=== PATIENT | male | born 1970 | race Caucasian/White ===

== ENCOUNTER 2017-09-04 17:23 | Inpatient (IN) | payer OTHER, SELFPAY ==
[2017-09-04] VITALS (7 sets, daily range): BP systolic 129–148; BP diastolic 89–103; PULSE 10–105; RESP 16–24; TEMP 36.1–36.4; O2SAT 94–100; BMI 27.7; BMI 28.4
[2017-09-04 17:57] LABS: Absolute Lymphocyte Count 1.27 X10^3/ul (0.83-4.51); Absolute Neutrophil Count 5.3 X10^3/uL (2.0-7.7); Basophil# 0.01 X10^3/uL; Basophil% 0.1 % (0-1); Eosinophil# 0.08 X10^3/uL; Hematocrit 52.4 % (40-54); Lymphocyte # 1.27 X10^3/ul (4.0); Lymphocyte % 15.4 % (19-41); Mean Corp Hgb Conc 36.1 g/gl (32-36); Mean Corpuscular Hgb 31.2 pg (27.0-32.0); Mean Corpuscular Volume 86.5 fL (80-94); Monocyte# 1.61 X10^3/uL; Monocyte% 19.5 % (0-10); Neutrophil # 5.29 X10^3/uL (2.7-7.7); Neutrophil % 63.9 % (47-70); Platelet Count 236 K/mm3 (150-450); RBC Distribution Width CV 13.4 % (11.6-14.6); RBC Distribution Width SD 41.9 fl (35.1-43.9); Red Blood Count 6.06 M/mm3 (4.6-6.2); White Blood Count 8.3 K/mm3 (4.4-11.0)
[2017-09-04 18:00] LABS: Differential Indicated SCAN CRITERIA MET; Hemoglobin 18.9 g/dl (13.0-16.5); POSITIVE COUNT NO; POSITIVE DIFFERENTIAL YES; POSITIVE MORPHOLOGY NO
--- NOTE | 2017-09-04 18:00 | CT_ITS ---
STUDY: CT ABDOMEN AND PELVIS WITH CONTRAST REASON FOR EXAM: Male, 47 years old. ABD PAIN AND DIARRHEA X 3 DAYS/NAUSEA. Hernia repair as child. RADIATION DOSAGE (If Supplied By Facility): CTDIvol = ( 12.23 ) mGy, DLP = ( 955.61 ) mGycm TECHNIQUE: Transaxial images were obtained from the dome of the diaphragm to the symphysis pubis with oral contrast. 75ml ml of Isovue 300 contrast was administered. Sagittal and coronal images were reconstructed. Individualized dose optimization techniques were used for this CT. COMPARISON: None. FINDINGS: The visualized lung bases are unremarkable. The visualized portions of the heart are within normal limits. Normal liver. Normal gallbladder and extrahepatic biliary system. Normal spleen. Normal pancreas. Normal bilateral adrenal glands. Normal right kidney. Normal left kidney. Normal visualized stomach. There is a paralytic ileus of the small intestine with mild gaseous distention. Normal colon. The appendix is visualized and appears normal. There is diffuse atherosclerotic calcification of the abdominal aorta, without a demonstrated aneurysm. Normal inferior vena cava. Normal retroperitoneum. Normal urinary bladder. Normal visualized prostate gland. Trace free fluid in the pelvis. The source is not identified. Normal abdominal wall. Normal osseous structures. CT/Abdomen/Pelvis WITH Contrast IMPRESSION: There is a paralytic ileus of the small intestine with mild gaseous distention. Trace free fluid in the pelvis. The source is not identified. Electronically Signed: Jorgito Spencer MD at 20:28 EDT , Service support ,
--- NOTE | 2017-09-04 18:03 | ED.VISSUMM ---
- ER Visit Summary Date of Service: 09/04/17 Chief Complaint: Abdominal pain History of Present Illness: The patient is a 47 M who states that on Friday he woke with abdominal pain and diarrhea. He attempted to go to work but had to cut his day short. He has had vomiting. Diarrhea and the discomfort has pretty much been consistent through Friday and into today. The vomiting subsided but returned for the past couple hours. No fevers. He notes that he is only been drinking liquids since Friday. No blood in the diarrhea. No flank pain. He has a history of GERD and saw Dr. Nino for that. He states that he has never had a colonoscopy. He notes when he would describe his like an irritable bowel-like pattern with diarrhea occasionally. He has never been formally diagnosed. He has no personal history of colitis. He notes the only abdominal surgery was a inguinal hernia repair when he was [age] years old. Patient has had no recent antibiotics. Describes diarrhea as brown and watery Physical Examination: Afebrile vital signs are stable Gen: Well-nourished well-developed Head: Normocephalic atraumatic Eyes: Perrl EOMI ENT: TMs clear no rhinorrhea moist mucous membranes Neck: Supple no lymphadenopathy no JVD nontender CVS: Regular rate rhythm no murmurs normal S1-S2 Respiratory: No distress clear to auscultation bilaterally chest nontender Abdomen: Soft mild tenderness to palpation without guarding or rebound nondistended normal bowel sounds no masses Back: Nontender Extremity: Nontender no edema Skin: Normal color no rash Neuro: alert orientated ?3 CN II-XII intact normal strength sensation reflexes gait cerebellar Psych: Normal affect normal mood Test Results: White count is normal at 18.3. Hemoglobin 18.9 (I suspect this is due to some degree of hemoconcentration) BUN 28 with creatinine 1.48. Total bilirubin 1.8 direct bilirubin 0.35 ALT is 65 AST of 30. Lactic acid 1.9. CT abdomen pelvis with oral and IV contrast demonstrated what is probably an ileus versus obstruction. There is air-fluid levels. Most of the contrast did not move past the stomach. Emergency Department Course and Treatment: The patient received morphine Zofran and fluids. He also received a dose of Reglan. An NG tube was placed after lidocaine aerosol. I spoke with Dr. Roy who reviewed the films I also spoke with Dr. Dumont. Plan is admission into the hospital Impression: 1. Abdominal pain 2. Ileus 3. Dehydration 4. Diarrhea This note was generated with [employer] dictation software. It may contain incorrect words, spelling, and punctuation that were not noted in review of the chart prior to signing ED Disposition - Plan for ED Patient: Chief Complaint: Abd Pain Referrals: Lenny Riddle MD [Primary Care Provider] -
[2017-09-04 18:05] LABS: Anion Gap 10 (5-15); BUN 28 mg/dL (7-18); BUN/Creat Ratio 18.9 RATIO (10-20); Calcium,Total 9.5 mg/dL (8.5-10.1); Chloride 101 mmol/L (98-107); Creatinine, Serum 1.48 mg/dL (0.70-1.30); EST Glomerular Filtration Rate 54 mL/min (>60); Est Glom Filt Rate - Afr Amer 65 mL/min (>60); Estimated Creatinine Clearance 65.01 ml/min; Glucose 129 mg/dL (74-106); Potassium 3.5 mmol/L (3.5-5.1); Sodium Level 134 mmol/L (136-145)
[2017-09-04] MEDS: 0.9% Normal Saline 1,000 ML 1000 ML IV (18:07)
[2017-09-04] MEDS: Morphine 4 MG/ML Syringe IV ×2 (18:07→20:34)
[2017-09-04] MEDS: Ondansetron 4 MG/2 ML Vial IV (18:07)
[2017-09-04 18:22] LABS: Red Blood Cells-Urine 0 SEEN /hpf (0-5)
[2017-09-04 18:23] LABS: AST(SGOT) 30 U/L (15-37); Alanine Aminotransfer ALT/SGPT 65 U/L (16-61); Albumin, Serum 4.7 g/dL (3.2-5.0); Alkaline Phosphatase 69 U/L (45-117); Bilirubin, Direct 0.35 mg/dL (0.00-0.30); Globulin 4.2 g/dL (2.2-4.2); Lipase 83 U/L (73-393); Protein, Total 8.9 g/dL (6.4-8.2)
[2017-09-04 18:33] LABS: Color, Urine Yellow (Yellow); Glucose, Dipstick Normal (Normal); Ketone-Dipstick 50 mg/dl (Negative); Leukocyte Esterase-Dipstick 25 /ul (Negative); Nitrite-Dipstick Negative (Negative); Occult Blood-Urine 150 /ul (Negative); Protein-Dipstick 100 mg/dl (Negative); Urine Clarity Clear (Clear); Urine Urobilinogen 4 mg/dl (Normal)
[2017-09-04 18:44] LABS: Platelet Estimate ADEQUATE (ADEQ)
[2017-09-04 18:45] LABS: Anisocytosis RARE
[2017-09-04 18:59] LABS: Lactic Acid 1.9 mmol/L (0.4-2.0)
[2017-09-04 19:15] LABS: Urine Bilirubin Dipstick 3 mg/dL (Negative)
[2017-09-04 19:16] LABS: White Blood Cells 0-5 SEEN /hpf (0-5)
[2017-09-04 19:17] LABS: Bacteria 2+ /hpf (None Seen); Hyaline Cast 0-5 SEEN /lpf (0-5); Mucous, Urine 2+ /hpf (<or=2+); Squamous Epithelial Cells - UA 0-5 SEEN /hpf (0-5)
[2017-09-04] MEDS: Metoclopramide 10 MG/2 ML Vial 5 MG IV (19:43)
[2017-09-04] MEDS: 0.9% Normal Saline 1,000 ML 250 ML IV (19:51)
[2017-09-04] MEDS: Lidocaine 4% 5 ML Ampul 2 ML INHALATION (21:33)
--- NOTE | 2017-09-04 21:37 | PCM.HP.STD ---
Problem List (1) Small bowel ileus Status: Acute (2) GERD (gastroesophageal reflux disease) Status: Chronic History of Present Illness Date of Admission: 09/04/17 Chief Complaint: Abdominal pain, nausea vomiting and diarrhea since Friday The patient is a 47 year old M with history of GERD, follows Dr. Jimenez and had EGD and gastric polypectomy done this year came to ER with 2 day history of nausea, vomiting and diarrhea and abdominal pain. Patient started not feeling well on Friday and had 3 loose bowel movement for which he took Imodium his diarrhea controlled. After that he had nausea and vomiting about 2-3 times and abdominal pain is started in the Friday evening. Abdominal pain was generalized started in mid abdomen, colicky nature, comes in waves with intensity 10/10 lasting for about 15-20 minutes. Patient has vomiting and diarrhea started today and abdominal pain got worse and so came to ER. In ED, triage vitals shows mild tachycardia and tachypnea otherwise blood pressure normal. In the ED, CT abdomen and pelvis was done. CT abdomen images reviewed and I agree with official report of gaseous distention of the small bowel suggestive of paralytic ileus. Normal colon. The lab work shows hemoglobin 18.9, mainly from hemoconcentration. K3.5. BUN 28 creatinine 1.48. LFT within normal limit except total bilirubin 1.8. Past Medical History Past Medical History (Chronic Problems): Chronic Problems GERD (gastroesophageal reflux disease) (Chronic) Allergies No Known Allergies Allergy (Verified 09/04/17 17:25) Home Medications: Ambulatory Orders Medication Instructions Recorded Omeprazole [Prilosec] 10 mg PO BID 09/04/17 Smoking Status: Never smoker - *Family History Paternal History Items: No pertinent history Review of Systems Constitutional: Denies: Chills, Fever, Weight Change HEENT: Denies: Head Aches, Sinus Congestion, Sinus Drainage Cardiovascular: Denies: Chest Pain, Palpitations Respiratory: Denies: Cough, Shortness of breath at rest, Sputum production Gastrointestinal: Reports: Abdominal Pain, Diarrhea, Dyspepsia, Nausea. Denies: Hematemesis, Hematochezia, Melena, Vomiting Genitourinary: Denies: Dysuria Musculoskeletal: Denies: Joint Pain, Joint Tenderness Skin: Denies: Rash, Wounds Neurological: Denies: Numbness, Tingling, Focal weakness Psychiatric: Denies: Anxiety, Depression, Homicidal Ideations, Suicidal Ideations Hematologic/ Lymphatic: Denies: Easy Bruising, Easy Bleeding VTE Information - Inpt Only VTE Present on Admission: No VTE Mechan Device Prophylaxis: SCD's VTE Pharm Prophylaxis ordered?: Yes Patient Problems: Active and Suspected Problems Small bowel ileus (Acute) - Physical Exam General: Alert, Oriented x3, Cooperative HEENT: Atraumatic, PERRLA, EOMI, Normocephalic Neck: Supple, No JVD, Negative Carotid Bruits Lungs: Clear to auscultation, Normal air movement Cardiovascular: Regular rate, Normal S1, Normal S2, No murmurs Abdomen: Bowel Sounds Present, Soft, Hypoactive Bowel Sounds, Tender - Mild diffuse tenderness present. Rebound tenderness. Extremities: No edema, Capillary Refill Less than 3 Seconds Skin: No rashes, No breakdown Musculoskeletal: No Tenderness to Palpation of Joints or Extremities Neurological: Cranial nerves II-XII grossly intact Psych/Mental Status: Normal Affect, Appropriate Vital Signs Temp Pulse Resp BP Pulse Ox 97.0 F L 91 16 148/89 H 97 09/04/17 17:23 09/04/17 21:20 09/04/17 21:20 09/04/17 21:20 09/04/17 21:20 Oxygen Delivery Method Room Air Weight: 198 lb 13.711 oz Body Mass Index (BMI) 27.7 Laboratory Tests Past 24 Hrs 09/04/17 09/04/17 09/04/17 17:35 17:35 17:35 WBC 8.3 RBC 6.06 Hgb 18.9 H* Hct 52.4 MCV 86.5 MCH 31.2 MCHC 36.1 H RDW 13.4 RDW Differential 41.9 Plt Count 236 MPV 10.0 Immature Gran % (Auto) 0.100 Neut % (Auto) 63.9 Lymph % (Auto) 15.4 L Loving % (Auto) 19.5 H Eos % (Auto) 1.0 Baso % (Auto) 0.1 Absolute Neuts (auto) 5.3 Absolute Lymphs (auto) 1.27 Total Counted Not Reportable Differential Comment SEE COMMENT Diff Path Review May foll Platelet Estimate ADEQUATE Anisocytosis RARE Sodium 134 L Potassium 3.5 Chloride 101 Carbon Dioxide 23.0 Anion Gap 10 BUN 28 H Creatinine 1.48 H Estim Creat Clear Calc 65.01 Est GFR (MDRD) Af Amer 65 Est GFR (MDRD) Non-Af 54 L BUN/Creatinine Ratio 18.9 Glucose 129 H Lactic Acid Calcium 9.5 Total Bilirubin 1.80 H Direct Bilirubin 0.35 H AST 30 ALT 65 H Alkaline Phosphatase 69 Total Protein 8.9 H Albumin 4.7 Globulin 4.2 Lipase 83 Urine Color Urine Clarity Urine pH Ur Specific Baldwin Urine Protein Urine Glucose (UA) Urine Ketones Urine Occult Blood Urine Nitrite Urine Bilirubin Urine Urobilinogen Ur Leukocyte Esterase Urine RBC Urine WBC Ur Squamous Epith Cells Urine Bacteria Hyaline Casts Urine Mucus 09/04/17 09/04/17 18:11 18:16 WBC RBC Hgb Hct MCV MCH MCHC RDW RDW Differential Plt Count MPV Immature Gran % (Auto) Neut % (Auto) Lymph % (Auto) Loving % (Auto) Eos % (Auto) Baso % (Auto) Absolute Neuts (auto) Absolute Lymphs (auto) Total Counted Differential Comment Diff Path Review Platelet Estimate Anisocytosis Sodium Potassium Chloride Carbon Dioxide Anion Gap BUN Creatinine Estim Creat Clear Calc Est GFR (MDRD) Af Amer Est GFR (MDRD) Non-Af BUN/Creatinine Ratio Glucose Lactic Acid 1.9 Calcium Total Bilirubin Direct Bilirubin AST ALT Alkaline Phosphatase Total Protein Albumin Globulin Lipase Urine Color Yellow Urine Clarity Clear Urine pH 5.0 Ur Specific Baldwin 1.020 Urine Protein 100 H Urine Glucose (UA) Normal Urine Ketones 50 H Urine Occult Blood 150 H Urine Nitrite Negative Urine Bilirubin 3 H Urine Urobilinogen 4 H Ur Leukocyte Esterase 25 H Urine RBC 0 SEEN Urine WBC 0-5 SEEN Ur Squamous Epith Cells 0-5 SEEN Urine Bacteria 2+ Hyaline Casts 0-5 SEEN Urine Mucus 2+ Assessment/Plan All Active Problems Small bowel ileus (Acute) The patient is a 47 year old M with history of GERD, follows Dr. Jimenez and had EGD and gastric polypectomy done this year came to ER with 2 day history of nausea, vomiting and diarrhea and abdominal pain. Patient started not feeling well on Friday and had 3 loose bowel movement for which he took Imodium his diarrhea controlled. After that he had nausea and vomiting about 2-3 times and abdominal pain is started in the Friday evening. Abdominal pain was generalized started in mid abdomen, colicky nature, comes in waves with intensity 10/10 lasting for about 15-20 minutes. Patient has vomiting and diarrhea started today and abdominal pain got worse and so came to ER. He denies fever, chills or lower urinary tract symptoms. In ED, triage vitals shows mild tachycardia and tachypnea otherwise blood pressure normal. In the ED, CT abdomen and pelvis was done. CT abdomen images reviewed and I agree with official report of gaseous distention of the small bowel suggestive of paralytic ileus. Normal colon. The lab work shows hemoglobin 18.9, mainly from hemoconcentration. K3.5. BUN 28 creatinine 1.48. LFT within normal limit except total bilirubin 1.8. 1. Acute small bowel ileus: [facility] NG tube insertion and suction, n.p.o., IV fluid, major intake and output. It is a physician discussed with Dr. Roy and consult placed. Stool for enteric bacteriology panel, occult blood and WBC ordered. As per the CT scan of his small bowel ileus and normal colon, no antibiotic intake, but patient is on chronic PPI, therefore C. difficile is ordered although seems less likely. 2. GERD: On IV Protonix. 3. DVT prophylaxis: Moderate risk: On Lovenox and bilateral SCDs This note was generated with [employer] dictation software. Every effort was made to ensure accuracy, however computerized neurophysiologist mistakes may persist. Laboratory Results 09/04/17 17:35: WBC 8.3, RBC 6.06, Hgb 18.9 H*, Hct 52.4, MCV 86.5, MCH 31.2, MCHC 36.1 H, RDW 13.4, RDW Differential 41.9, Plt Count 236, MPV 10.0, Immature Gran % (Auto) 0.100, Neut % (Auto) 63.9, Lymph % (Auto) 15.4 L, Loving % (Auto) 19.5 H, Eos % (Auto) 1.0, Baso % (Auto) 0.1, Absolute Neuts (auto) 5.3, Absolute Lymphs (auto) 1.27, Total Counted Not Reportable, Differential Comment SEE COMMENT, Diff Path Review May foll, Platelet Estimate ADEQUATE, Anisocytosis RARE 09/04/17 17:35: Sodium 134 L, Potassium 3.5, Chloride 101, Carbon Dioxide 23.0, Anion Gap 10, BUN 28 H, Creatinine 1.48 H, Estim Creat Clear Calc 65.01, Est GFR (MDRD) Af Amer 65, Est GFR (MDRD) Non-Af 54 L, BUN/Creatinine Ratio 18.9, Glucose 129 H, Calcium 9.5 09/04/17 17:35: Total Bilirubin 1.80 H, Direct Bilirubin 0.35 H, AST 30, ALT 65 H, Alkaline Phosphatase 69, Total Protein 8.9 H, Albumin 4.7, Globulin 4.2, Lipase 83 09/04/17 18:11: Urine Color Yellow, Urine Clarity Clear, Urine pH 5.0, Ur Specific Baldwin 1.020, Urine Protein 100 H, Urine Glucose (UA) Normal, Urine Ketones 50 H, Urine Occult Blood 150 H, Urine Nitrite Negative, Urine Bilirubin 3 H, Urine Urobilinogen 4 H, Ur Leukocyte Esterase 25 H, Urine RBC 0 SEEN, Urine WBC 0-5 SEEN, Ur Squamous Epith Cells 0-5 SEEN, Urine Bacteria 2+, Hyaline Casts 0-5 SEEN, Urine Mucus 2+ 09/04/17 18:16: Lactic Acid 1.9 Clinical Impression(s) from Imaging Studies Abdomen/Pelvis CT 09/04/17 18:00 IMPRESSION: There is a paralytic ileus of the small intestine with mild gaseous distention. Trace free fluid in the pelvis. The source is not identified. Code Visit Inpatient E&M: 78664 Init Hosp L3
--- NOTE | 2017-09-04 22:28 | RAD_ITS ---
STUDY: X-RAY - ABDOMEN/PELVIS REASON FOR EXAM: Male, 47 years old. Post NG Tube placement TECHNIQUE: Single AP view of the abdomen / pelvis. COMPARISON: CT scan of the same day FINDINGS: Normal visualized lung bases. There is a feeding tube/ nasogastric tube noted. The tip is in the region of the stomach. There is a paralytic ileus of the small intestine with mild gaseous distention. There is no demonstrated free abdominal air. The visualized liver, spleen and kidneys are grossly normal in size and morphology. Normal soft tissue structures. Normal visualized osseous structures. RAD/Abdomen Single View (Portable) IMPRESSION: There is a paralytic ileus of the small intestine with mild gaseous distention. There is a feeding tube/ nasogastric tube noted. The tip is in the region of the stomach. Electronically Signed: Jorgito Spencer MD at 22:52 EDT , Service support ,
[2017-09-04] MEDS: Enoxaparin 40 MG/0.4 ML Syringe SC (23:57)
[2017-09-05] MEDS: Morphine 2 MG/ML Syringe IV (00:35)
[2017-09-05 05:25] VITALS: BP 130/79; PULSE 75; RESP 16; TEMP 36.4; O2SAT 95
[2017-09-05] MEDS: Ketorolac 15 MG/ML Vial IV ×3 (05:26→18:03)
--- NOTE | 2017-09-05 06:11 | RAD_ITS ---
STUDY: X-RAY - ABDOMEN/PELVIS REASON FOR EXAM: Male, 47 years old. Abdominal distention. TECHNIQUE: AP supine and upright views of the abdomen and pelvis. COMPARISON: Comparison is made with prior study dated September 04, 2017. FINDINGS: A nasogastric tube is in situ with the tip in the body of the stomach. Since prior study, there has been progressive dilatation of the small bowel loops with multiple air-fluid levels. A small amount of gas is seen within the colon. This is suggestive of an incomplete small bowel obstruction. Follow-up is recommended. There is no demonstrated free abdominal air. The visualized liver, spleen and kidneys are grossly normal in size and morphology. There are calcified phleboliths in the pelvis. Normal visualized osseous structures. RAD/Abd Inc Decub and/or Erect IMPRESSION: Progressive gaseous distention of the small bowel loops with air-fluid levels. Small amount of gas is seen within the colon. This may represent incomplete small bowel obstruction. Follow-up is recommended. The tip of the nasogastric tube is in the body of the stomach. Electronically Signed: Abel Villalobos MD at 9:54 EDT Tel [phone], Service support ,
[2017-09-05 06:51] LABS: Absolute Lymphocyte Count 0.76 X10^3/ul (0.83-4.51); Eosinophil# 0.05 X10^3/uL; Eosinophils% 1.3 % (0-5); Hematocrit 43.8 % (40-54); Lymphocyte # 0.76 X10^3/ul (4.0); Lymphocyte % 20.3 % (19-41); Mean Corp Hgb Conc 34.2 g/gl (32-36); Mean Corpuscular Hgb 30.2 pg (27.0-32.0); Mean Corpuscular Volume 88.1 fL (80-94); Monocyte# 0.96 X10^3/uL; Monocyte% 25.7 % (0-10); Neutrophil # 1.97 X10^3/uL (2.7-7.7); Neutrophil % 52.7 % (47-70); Platelet Count 189 K/mm3 (150-450); RBC Distribution Width CV 13.6 % (11.6-14.6); RBC Distribution Width SD 43.6 fl (35.1-43.9); Red Blood Count 4.97 M/mm3 (4.6-6.2); White Blood Count 3.7 K/mm3 (4.4-11.0)
[2017-09-05 06:56] LABS: POSITIVE COUNT NO; POSITIVE DIFFERENTIAL NO; POSITIVE MORPHOLOGY NO
[2017-09-05 07:04] LABS: Anion Gap 10 (5-15); BUN 26 mg/dL (7-18); BUN/Creat Ratio 24.8 RATIO (10-20); Calcium,Total 7.9 mg/dL (8.5-10.1); Chloride 110 mmol/L (98-107); Creatinine, Serum 1.05 mg/dL (0.70-1.30); EST Glomerular Filtration Rate 80 mL/min (>60); Est Glom Filt Rate - Afr Amer 97 mL/min (>60); Estimated Creatinine Clearance 88.84 ml/min; Glucose 105 mg/dL (74-106); Magnesium 2.2 mg/dL (1.6-2.6); Sodium Level 142 mmol/L (136-145)
[2017-09-05 09:00] VITALS: BP 143/95; PULSE 83; RESP 16; TEMP 36.6; O2SAT 96
[2017-09-05] MEDS: Morphine 4 MG/ML Syringe IV (09:15)
[2017-09-05] MEDS: Ondansetron 4 MG/2 ML Vial IV (09:21)
--- NOTE | 2017-09-05 12:12 | CON.PCM_ITS ---
Reason for Consult Date of Consultation: 09/05/17 History of Present Illness: The patient is a 47 year old M with a complaint of nausea, vomiting, and abdominal distention. The patient awoke on Friday morning and noted abdominal cramping along with loose watery diarrhea. The diarrhea was nonbloody. As the day progressed, he had nausea and then vomited. His vomitus was food and bilious in nature. There was no signs or coffee grounds or hematemesis. The patient went to work, but then on Friday noted similar issues of diarrhea and cramping abdominal pain, nausea and vomiting. On , he had similar symptoms of abdominal pain but now is complaining of increased bloating and now decreased diarrhea and decreased flatulence. He presented was to [facility] emergency department. He had workup including laboratory studies which demonstrated a normal to low white blood cell count with elevated monocyte and decreased lymphocyte count. Metabolic panel demonstrated dehydration without other abnormalities. CT scan of the abdomen and pelvis demonstrated no signs of herniation, internal hernia. This was interpreted more is an ileus picture with diffusely dilated small bowel throughout, some air in the colon and a dilated stomach with minimal to no progression of oral contrast through the small bowel. A nasogastric tube was placed and the patient was admitted to the medicine service. I was consulted. the patient recently returned from a trip to [place] last week. He notes nobody else at home has been sick with similar findings. he has no recent antibiotic use. He has no high-risk activities that would predispose to enteric infection other than his recent trip. he notes in inguinal hernia repair at age less than 4 and no other surgical procedures. overnight, he states his abdominal pain has improved somewhat. He has episodic cramping, but overall less discomfort. He states he is passing more flatus today. He is asking when he can start drinking liquids or having food. Past Medical History Past Medical History (Chronic Problems): Chronic Problems GERD (gastroesophageal reflux disease) (Chronic) Allergies No Known Allergies Allergy (Verified 09/04/17 17:25) Home Medications: Ambulatory Orders Medication Instructions Recorded Omeprazole [Prilosec] 10 mg PO BID 09/04/17 Surgical History: - - pediatric inguinal hernia repair Smoking Status: Never smoker - *Family History Paternal History Items: No pertinent history Review of Systems Constitutional: Denies: Chills, Fever, Weight Change HEENT: Denies: Head Aches, Sinus Congestion, Sinus Drainage Cardiovascular: Denies: Chest Pain, Palpitations Respiratory: Denies: Cough, Shortness of breath at rest, Sputum production Gastrointestinal: Reports: Abdominal Pain, Nausea, Vomiting Genitourinary: Denies: Dysuria Musculoskeletal: Denies: Joint Pain, Joint Tenderness Skin: Denies: Rash, Wounds Neurological: Denies: Numbness, Tingling, Focal weakness Psychiatric: Denies: Anxiety, Depression, Homicidal Ideations, Suicidal Ideations Hematologic/ Lymphatic: Denies: Easy Bruising, Easy Bleeding Patient Problems: Active and Suspected Problems Small bowel ileus (Acute) - Physical Exam General: Alert, Oriented x3, Cooperative HEENT: Atraumatic, PERRLA, EOMI, Normocephalic Neck: Supple, No JVD, Negative Carotid Bruits Lungs: Clear to auscultation, Normal air movement Cardiovascular: Regular rate, No murmurs Abdomen: Bowel Sounds Present, Soft, Hypoactive Bowel Sounds, Distended, Tender - mild diffusely tender without peritoneal signs Extremities: No edema, Capillary Refill Less than 3 Seconds Skin: No rashes, No breakdown Musculoskeletal: No Tenderness to Palpation of Joints or Extremities Neurological: Cranial nerves II-XII grossly intact Psych/Mental Status: Normal Affect, Appropriate Vital Signs Temp Pulse Resp BP Pulse Ox 97.6 F L 75 16 130/79 H 95 09/05/17 05:25 09/05/17 05:25 09/05/17 05:25 09/05/17 05:25 09/05/17 05:25 Oxygen Delivery Method Room Air Weight: 89.9 kg Body Mass Index (BMI) 28.4 Intake and Output for Last 24 Hours 09/03/17 09/04/17 09/05/17 23:59 23:59 23:59 Intake Total 1030 / 1030 Output Total 200 / 200 Balance 830 / 830 Laboratory Tests Past 24 Hrs 09/05/17 09/05/17 06:00 06:00 WBC 3.7 L RBC 4.97 Hgb 15.0 Hct 43.8 MCV 88.1 MCH 30.2 MCHC 34.2 RDW 13.6 RDW Differential 43.6 Plt Count 189 MPV 10.0 Immature Gran % (Auto) 0.000 Neut % (Auto) 52.7 Lymph % (Auto) 20.3 [place] % (Auto) 25.7 H Eos % (Auto) 1.3 Baso % (Auto) 0.0 Absolute Neuts (auto) 2.0 Absolute Lymphs (auto) 0.76 L Total Counted Not Reportable Sodium 142 Potassium 4.0 Chloride 110 H Carbon Dioxide 22.0 Anion Gap 10 BUN 26 H Creatinine 1.05 Estim Creat Clear Calc 88.84 Est GFR (MDRD) Af Amer 97 Est GFR (MDRD) Non-Af 80 BUN/Creatinine Ratio 24.8 H Glucose 105 Calcium 7.9 L Magnesium 2.2 Assessment/Plan All Active Problems Small bowel ileus (Acute) nausea, vomiting, abdominal distention Based on history, exam, laboratory studies and CT scan along with follow-up imaging-I feel his symptoms are more likely consistent with ileus secondary to gastroenteritis. the patient's had no previous intra-abdominal surgeries, CT scan demonstrates no signs of internal herniation and he has both large and small bowel gas. He does have significant small bowel distention, so even though he states he isn't passing and proved flatus today, I would maintain the NG tube to low intermittent suction. I would plan for an follow-up abdominal multiview in the morning. If the patient continues to have decent flatness output, decreased abdominal discomfort and demonstrates improvement is an abdominal series, then I will recommend removal of the NG tube in the morning.
--- NOTE | 2017-09-05 12:27 | CASEMGMT ---
SEE RN CM LINK. D/C PLAN: RETURN HOME No discharge needs identified. Edwar RETANA RN CM
[2017-09-05] MEDS: Enoxaparin 40 MG/0.4 ML Syringe SC (12:52)
[2017-09-05 13:56] VITALS: BP 132/75; PULSE 81; RESP 16; TEMP 36.7; O2SAT 94
--- NOTE | 2017-09-05 18:06 | PCM.PROGNOTE ---
Patient Problems: Active and Suspected Problems Small bowel ileus (Acute) Subjective: Patient was seen and examined today, he has had no further diarrhea since admission, I have canceled his C. difficile and stool for WBCs and occult blood. I have noted the surgical consult by Dr. Roy and appreciate his participation in the care of this gentleman. Patient states he has not been passing any flatus today or had any bowel movements. - Physical Exam General: Alert, Oriented x3, Cooperative, No apparent distress, Well developed, Well nourished HEENT: Atraumatic, PERRLA, EOMI, Normocephalic Oral: Moist Mucosa Neck: Supple, No JVD, Negative Carotid Bruits, No Nuchal Rigidity, Trachea Midline, Thyroid Normal Size and Texture Lungs: Clear to auscultation, Normal air movement, No rhonchi, No wheeze, No rales Cardiovascular: Regular rate, Regular Rhythm, Normal S1, Normal S2, No murmurs, No Ectopic Activity, PMI Normal, No rub noted, No Gallop Abdomen: Bowel Sounds Present, Soft, Non Tender, Hypoactive Bowel Sounds Extremities: No clubbing, No cyanosis, No edema, Capillary Refill Less than 3 Seconds Skin: No rashes, No breakdown Musculoskeletal: No Tenderness to Palpation of Joints or Extremities Neurological: Cranial nerves II-XII grossly intact, Neuro grossly intact, Sensory exam intact to light touch and pain, Coordination normal Psych/Mental Status: Normal Affect, Appropriate, Alert and oriented to time, place, person, mood and affect Vital Signs Temp Pulse Resp BP Pulse Ox 98.0 F 81 16 132/75 H 94 09/05/17 13:56 09/05/17 13:56 09/05/17 13:56 09/05/17 13:56 09/05/17 13:56 Oxygen Delivery Method Room Air Weight: 89.9 kg Body Mass Index (BMI) 28.4 Intake and Output for Last 24 Hours 09/03/17 09/04/17 09/05/17 23:59 23:59 23:59 Intake Total 2911 / 2911 Output Total 625 / 625 Balance 2286 / 2286 Laboratory Tests Past 24 Hrs 09/05/17 09/05/17 06:00 06:00 WBC 3.7 L RBC 4.97 Hgb 15.0 Hct 43.8 MCV 88.1 MCH 30.2 MCHC 34.2 RDW 13.6 RDW Differential 43.6 Plt Count 189 MPV 10.0 Immature Gran % (Auto) 0.000 Neut % (Auto) 52.7 Lymph % (Auto) 20.3 [place] % (Auto) 25.7 H Eos % (Auto) 1.3 Baso % (Auto) 0.0 Absolute Neuts (auto) 2.0 Absolute Lymphs (auto) 0.76 L Total Counted Not Reportable Sodium 142 Potassium 4.0 Chloride 110 H Carbon Dioxide 22.0 Anion Gap 10 BUN 26 H Creatinine 1.05 Estim Creat Clear Calc 88.84 Est GFR (MDRD) Af Amer 97 Est GFR (MDRD) Non-Af 80 BUN/Creatinine Ratio 24.8 H Glucose 105 Calcium 7.9 L Magnesium 2.2 Medical Necessity - Tobacco Use Smoking Status: Never smoker Assessment/Plan All Active Problems Small bowel ileus (Acute) #1 acute small bowel ileus-etiology unclear, possibly associated with acute gastroenteritis-patient will have labs performed in the morning, he will be reevaluated by surgery in the morning and have further imaging studies tomorrow. #2 dehydration-patient's BUN and creatinine have improved with IV fluids, repeat BMP in the morning #3 gastroesophageal reflux disease-continue PPI Code Visit Inpatient E&M: 63949 Subs Hosp L2
[2017-09-05 21:34] VITALS: BP 134/72; PULSE 78; RESP 16; TEMP 36.6; O2SAT 96
[2017-09-06] MEDS: Ketorolac 15 MG/ML Vial IV ×5 (00:16→23:13)
[2017-09-06] MEDS: 0.9% NaCl Peripheral Flush Adult/Peds IV ×6 (00:17→17:10)
[2017-09-06 02:43] VITALS: BP 129/79; PULSE 74; RESP 18; TEMP 36.6; O2SAT 94
[2017-09-06] MEDS: Morphine 4 MG/ML Syringe IV ×2 (02:58→15:45)
[2017-09-06] MEDS: Ondansetron 4 MG/2 ML Vial IV ×3 (02:58→21:11)
--- NOTE | 2017-09-06 05:26 | NURSING ---
OPERATIONS EXAMINER took pt down to radiology for KUB.
--- NOTE | 2017-09-06 05:30 | RAD_ITS ---
STUDY: X-RAY - ABDOMEN/PELVIS REASON FOR EXAM: Male, 47 years old. Small bowel ileus/obstruction, abdominal distention, abdominal pain TECHNIQUE: AP supine and upright views of the abdomen and pelvis. 4 images COMPARISON: 09/06/[address] abdomen pelvis 09/04/2017. FINDINGS: Enteric tube tip projects over the gastric fundus level. There is elevation of the right hemidiaphragm. Air distention of small bowel with air-fluid levels in the midabdomen is minimally increased with small pockets of air throughout the colon. There is no demonstrated free abdominal air. Normal soft tissue structures. Normal visualized osseous structures. RAD/Abd Inc Decub and/or Erect IMPRESSION: Small bowel obstruction suspected, air distention has minimally increased. Electronically Signed: Gaby Mauricio MD at 6:14 EDT , Service support ,
[2017-09-06 06:55] LABS: Absolute Lymphocyte Count 1.04 X10^3/ul (0.83-4.51); Absolute Neutrophil Count 1.6 X10^3/uL (2.0-7.7); Basophil# 0.01 X10^3/uL; Basophil% 0.3 % (0-1); Eosinophil# 0.11 X10^3/uL; Eosinophils% 3.2 % (0-5); Hematocrit 38.6 % (40-54); Hemoglobin 13.1 g/dl (13.0-16.5); Lymphocyte # 1.04 X10^3/ul (4.0); Lymphocyte % 30.6 % (19-41); Mean Corp Hgb Conc 33.9 g/gl (32-36); Mean Corpuscular Hgb 30.4 pg (27.0-32.0); Mean Corpuscular Volume 89.6 fL (80-94); Mean Platelet Vol. 9.8 fl (6.2-12.0); Monocyte# 0.59 X10^3/uL; Monocyte% 17.4 % (0-10); Neutrophil # 1.64 X10^3/uL (2.7-7.7); Neutrophil % 48.2 % (47-70); Platelet Count 161 K/mm3 (150-450); RBC Distribution Width CV 13.2 % (11.6-14.6); RBC Distribution Width SD 43.1 fl (35.1-43.9); Red Blood Count 4.31 M/mm3 (4.6-6.2); White Blood Count 3.4 K/mm3 (4.4-11.0)
[2017-09-06 07:04] LABS: POSITIVE COUNT NO; POSITIVE DIFFERENTIAL NO; POSITIVE MORPHOLOGY NO
[2017-09-06 07:10] LABS: Anion Gap 7 (5-15); BUN 21 mg/dL (7-18); BUN/Creat Ratio 23.1 RATIO (10-20); Chloride 113 mmol/L (98-107); Creatinine, Serum 0.91 mg/dL (0.70-1.30); EST Glomerular Filtration Rate 95 mL/min (>60); Est Glom Filt Rate - Afr Amer 115 mL/min (>60); Glucose 78 mg/dL (74-106); Potassium 4.1 mmol/L (3.5-5.1); Sodium Level 145 mmol/L (136-145)
[2017-09-06 07:40] VITALS: BP 122/77; PULSE 67; RESP 18; TEMP 36.8; O2SAT 96
--- NOTE | 2017-09-06 08:21 | PCM.PN.SRG ---
Patient Problems: Active and Suspected Problems Small bowel ileus (Acute) Subjective: some flatus, still abdominal pain - Physical Exam General: Alert, Oriented x3 Lungs: Clear to auscultation, Normal air movement Cardiovascular: Regular rate, No murmurs Abdomen: Soft, Hypoactive Bowel Sounds, Distended, - - diffuse tenderness without peritoneal signs Vital Signs Temp Pulse Resp BP Pulse Ox 98.3 F 67 18 122/77 H 96 09/06/17 07:40 09/06/17 07:40 09/06/17 07:40 09/06/17 07:40 09/06/17 07:40 Oxygen Delivery Method Room Air Weight: 89.9 kg Body Mass Index (BMI) 28.4 Intake and Output for Last 24 Hours 09/04/17 09/05/17 09/06/17 23:59 23:59 23:59 Intake Total 3806 / 3806 1795 / 1795 Output Total 1075 / 1075 750 / 750 Balance 2731 / 2731 1045 / 1045 Laboratory Tests Past 24 Hrs 09/06/17 09/06/17 06:27 06:27 WBC 3.4 L RBC 4.31 L Hgb 13.1 Hct 38.6 L MCV 89.6 MCH 30.4 MCHC 33.9 RDW 13.2 RDW Differential 43.1 Plt Count 161 MPV 9.8 Immature Gran % (Auto) 0.300 Neut % (Auto) 48.2 Lymph % (Auto) 30.6 [place] % (Auto) 17.4 H Eos % (Auto) 3.2 Baso % (Auto) 0.3 Absolute Neuts (auto) 1.6 L Absolute Lymphs (auto) 1.04 Total Counted Not Reportable Sodium 145 Potassium 4.1 Chloride 113 H Carbon Dioxide 25.0 Anion Gap 7 BUN 21 H Creatinine 0.91 Estim Creat Clear Calc 102.50 Est GFR (MDRD) Af Amer 115 Est GFR (MDRD) Non-Af 95 BUN/Creatinine Ratio 23.1 H Glucose 78 Calcium 8.0 L Medical Necessity - Tobacco Use Smoking Status: Never smoker Assessment/Plan All Active Problems Small bowel ileus (Acute) nausea, vomiting, abdominal distention Based on history, exam, laboratory studies and CT scan along with follow-up imaging-I feel his symptoms are more likely consistent with ileus secondary to gastroenteritis. the patient's had no previous intra-abdominal surgeries, CT scan demonstrates no signs of internal herniation and he has both large and small bowel gas. He does have significant small bowel distention, so even though he states he isn't passing and proved flatus today, I would maintain the NG tube to low intermittent suction. follow-up follow-up abdominal multiview from this morning demonstrates persistent pattern of small bowel dilation with some air in the colon. This looks stable to me. Not worse. No significant improvement. Currently, I recommend continuing nasogastric suction, encouraging ambulation. And we'll repeat abdominal multiview in morning.
--- NOTE | 2017-09-06 08:55 | PCM.PROGNOTE ---
Patient Problems: Active and Suspected Problems Small bowel ileus (Acute) Subjective: He feels fair. He had passed some gas. - Physical Exam General: Alert, Oriented x3, Cooperative, No apparent distress HEENT: Atraumatic, PERRLA, EOMI, Normocephalic Oral: Moist Mucosa Neck: Supple Lungs: Clear to auscultation, Normal air movement, No rhonchi, No wheeze, No rales Cardiovascular: Regular rate, Regular Rhythm, Normal S1, Normal S2, No murmurs, No Ectopic Activity Abdomen: Non Tender, No Hepato-splenomegaly, Bowel Sounds Not Present, Distended Extremities: No clubbing, No cyanosis, No edema Skin: No rashes Musculoskeletal: No Tenderness to Palpation of Joints or Extremities, No Muscle Wasting Lymphatic: No Cervical, Supraclavicular, or Inguinal Adenopathy Neurological: Cranial nerves II-XII grossly intact, Neuro grossly intact Psych/Mental Status: Normal Affect, Appropriate Vital Signs Temp Pulse Resp BP Pulse Ox 98.3 F 67 18 122/77 H 96 09/06/17 07:40 09/06/17 07:40 09/06/17 07:40 09/06/17 07:40 09/06/17 07:40 Oxygen Delivery Method Room Air Weight: 198 lb 3.129 oz Body Mass Index (BMI) 28.4 Intake and Output for Last 24 Hours 09/04/17 09/05/17 09/06/17 23:59 23:59 23:59 Intake Total 3806 / 3806 1795 / 1795 Output Total 1075 / 1075 750 / 750 Balance 2731 / 2731 1045 / 1045 Laboratory Tests Past 24 Hrs 09/06/17 09/06/17 06:27 06:27 WBC 3.4 L RBC 4.31 L Hgb 13.1 Hct 38.6 L MCV 89.6 MCH 30.4 MCHC 33.9 RDW 13.2 RDW Differential 43.1 Plt Count 161 MPV 9.8 Immature Gran % (Auto) 0.300 Neut % (Auto) 48.2 Lymph % (Auto) 30.6 [place] % (Auto) 17.4 H Eos % (Auto) 3.2 Baso % (Auto) 0.3 Absolute Neuts (auto) 1.6 L Absolute Lymphs (auto) 1.04 Total Counted Not Reportable Sodium 145 Potassium 4.1 Chloride 113 H Carbon Dioxide 25.0 Anion Gap 7 BUN 21 H Creatinine 0.91 Estim Creat Clear Calc 102.50 Est GFR (MDRD) Af Amer 115 Est GFR (MDRD) Non-Af 95 BUN/Creatinine Ratio 23.1 H Glucose 78 Calcium 8.0 L Diagnostic Data Abdomen/Pelvis CT 09/04/17 18:00 IMPRESSION: There is a paralytic ileus of the small intestine with mild gaseous distention. Trace free fluid in the pelvis. The source is not identified. Electronically Signed: Jorgito Spencer MD at 20:28 EDT , Service support , KUB X-Ray 09/04/17 22:28 IMPRESSION: There is a paralytic ileus of the small intestine with mild gaseous distention. There is a feeding tube/ nasogastric tube noted. The tip is in the region of the stomach. Electronically Signed: Jorgito Spencer MD at 22:52 EDT , Service support , Abdomen X-Ray 09/06/17 05:30 IMPRESSION: Small bowel obstruction suspected, air distention has minimally increased. Electronically Signed: Gaby Mauricio MD at 6:14 EDT , Service support , Medical Necessity - Tobacco Use Smoking Status: Never smoker Assessment/Plan All Active Problems Small bowel ileus (Acute) Patient is a 47 yo male, presents with nausea, vomiting, and diarrhea with abdominal pain, started on 09/02, admitted on 09/04/17. He had taken loperamide for diarrhea on 09/02. Creatinine was 1.48 on admission, probably due to dehydration. He was admitted to med-surg floor. NG was inserted from ED; surgery was consulted. On 09/06, abdominal film still shows gaseous distention. He has no previous abdominal surgery, small bowel obstruction is less likely. Abdomen is still quiet and distended, but patient had passes some gas. #1 Acute paralytic ileus. Probably induced by loperamide. He appears to have history of IBS with diarrhea, took loperamide in the past, but had tendency to develop constipation with the medication. Continue NG suction. IVF support. #2 PATRICIA. Creatinine 1.48 on admission, likely due to pre-renal dehydration. Creatinine normalized. Continue IVF support. #3 Gastroenteritis. He probably had viral gastroenteritis initially. #4 GERD. H2 lisa IV for now. VTE ppx: Lovenox. GI ppx: H2 lisa IV. He is full code. Disposition: Home in 1 to 2 days. Code Visit Inpatient E&M: 91141 Subs Hosp L2
--- NOTE | 2017-09-06 09:11 | PN_ITS ---
Patient Problems: Active and Suspected Problems Small bowel ileus (Acute) Subjective: He feels fair. He had passed some gas. - Physical Exam General: Alert, Oriented x3, Cooperative, No apparent distress HEENT: Atraumatic, PERRLA, EOMI, Normocephalic Oral: Moist Mucosa Neck: Supple Lungs: Clear to auscultation, Normal air movement, No rhonchi, No wheeze, No rales Cardiovascular: Regular rate, Regular Rhythm, Normal S1, Normal S2, No murmurs, No Ectopic Activity Abdomen: Non Tender, No Hepato-splenomegaly, Bowel Sounds Not Present, Distended Extremities: No clubbing, No cyanosis, No edema Skin: No rashes Musculoskeletal: No Tenderness to Palpation of Joints or Extremities, No Muscle Wasting Lymphatic: No Cervical, Supraclavicular, or Inguinal Adenopathy Neurological: Cranial nerves II-XII grossly intact, Neuro grossly intact Psych/Mental Status: Normal Affect, Appropriate Vital Signs Temp Pulse Resp BP Pulse Ox 98.3 F 67 18 122/77 H 96 09/06/17 07:40 09/06/17 07:40 09/06/17 07:40 09/06/17 07:40 09/06/17 07:40 Oxygen Delivery Method Room Air Weight: 198 lb 3.129 oz Body Mass Index (BMI) 28.4 Intake and Output for Last 24 Hours 09/04/17 09/05/17 09/06/17 23:59 23:59 23:59 Intake Total 3806 / 3806 1795 / 1795 Output Total 1075 / 1075 750 / 750 Balance 2731 / 2731 1045 / 1045 Laboratory Tests Past 24 Hrs 09/06/17 09/06/17 06:27 06:27 WBC 3.4 L RBC 4.31 L Hgb 13.1 Hct 38.6 L MCV 89.6 MCH 30.4 MCHC 33.9 RDW 13.2 RDW Differential 43.1 Plt Count 161 MPV 9.8 Immature Gran % (Auto) 0.300 Neut % (Auto) 48.2 Lymph % (Auto) 30.6 [place] % (Auto) 17.4 H Eos % (Auto) 3.2 Baso % (Auto) 0.3 Absolute Neuts (auto) 1.6 L Absolute Lymphs (auto) 1.04 Total Counted Not Reportable Sodium 145 Potassium 4.1 Chloride 113 H Carbon Dioxide 25.0 Anion Gap 7 BUN 21 H Creatinine 0.91 Estim Creat Clear Calc 102.50 Est GFR (MDRD) Af Amer 115 Est GFR (MDRD) Non-Af 95 BUN/Creatinine Ratio 23.1 H Glucose 78 Calcium 8.0 L Diagnostic Data Abdomen/Pelvis CT 09/04/17 18:00 IMPRESSION: There is a paralytic ileus of the small intestine with mild gaseous distention. Trace free fluid in the pelvis. The source is not identified. Electronically Signed: Jorgito Spencer MD at 20:28 EDT , Service support , KUB X-Ray 09/04/17 22:28 IMPRESSION: There is a paralytic ileus of the small intestine with mild gaseous distention. There is a feeding tube/ nasogastric tube noted. The tip is in the region of the stomach. Electronically Signed: Jorgito Spencer MD at 22:52 EDT , Service support , Abdomen X-Ray 09/06/17 05:30 IMPRESSION: Small bowel obstruction suspected, air distention has minimally increased. Electronically Signed: Gaby Mauricio MD at 6:14 EDT , Service support , Medical Necessity - Tobacco Use Smoking Status: Never smoker Assessment/Plan All Active Problems Small bowel ileus (Acute) Patient is a 47 yo male, presents with nausea, vomiting, and diarrhea with abdominal pain, started on 09/02, admitted on 09/04/17. He had taken loperamide for diarrhea on 09/02. Creatinine was 1.48 on admission, probably due to dehydration. He was admitted to med-surg floor. NG was inserted from ED; surgery was consulted. On 09/06, abdominal film still shows gaseous distention. He has no previous abdominal surgery, small bowel obstruction is less likely. Abdomen is still quiet and distended, but patient had passes some gas. #1 Acute paralytic ileus. Probably induced by loperamide. He appears to have history of IBS with diarrhea , took loperamide in the past, but had tendency to develop constipation with the medication. Continue NG suction. IVF support. #2 PATRICIA. Creatinine 1.48 on admission, likely due to pre-renal dehydration. Creatinine normalized. Continue IVF support. #3 Gastroenteritis. He probably had viral gastroenteritis initially. #4 GERD. H2 lisa IV for now. VTE ppx: Lovenox. GI ppx: H2 lisa IV. He is full code. Disposition: Home in 1 to 2 days. Code Visit Inpatient E&M: 39476 Subs Hosp L2
[2017-09-06] MEDS: Enoxaparin 40 MG/0.4 ML Syringe SC (09:29)
[2017-09-06] MEDS: Dext 5%-0.45% NS 1,000 ML 150 ML IV ×3 (09:29→23:13)
[2017-09-06 13:01] VITALS: BP 134/86; PULSE 77; RESP 18; TEMP 37; O2SAT 97
[2017-09-06 21:14] VITALS: BP 142/80; PULSE 86; RESP 18; TEMP 37.3; O2SAT 98
[2017-09-07 03:11] VITALS: BP 157/93; PULSE 80; RESP 18; TEMP 37.2; O2SAT 98
[2017-09-07] MEDS: Ketorolac 15 MG/ML Vial IV ×4 (05:09→23:08)
[2017-09-07] MEDS: Dext 5%-0.45% NS 1,000 ML 150 ML IV ×3 (05:52→19:49)
[2017-09-07 05:58] LABS: Hematocrit 37.4 % (40-54); Hemoglobin 12.9 g/dl (13.0-16.5); Mean Corp Hgb Conc 34.5 g/gl (32-36); Mean Corpuscular Hgb 30.1 pg (27.0-32.0); Mean Corpuscular Volume 87.2 fL (80-94); Mean Platelet Vol. 9.5 fl (6.2-12.0); Platelet Count 177 K/mm3 (150-450); RBC Distribution Width CV 12.9 % (11.6-14.6); RBC Distribution Width SD 41.2 fl (35.1-43.9); Red Blood Count 4.29 M/mm3 (4.6-6.2); White Blood Count 1.9 K/mm3 (4.4-11.0)
--- NOTE | 2017-09-07 06:23 | RAD_ITS ---
STUDY: X-RAY - ABDOMEN/PELVIS REASON FOR EXAM: Male, 47 years old. Abdominal distention and pain TECHNIQUE: AP supine and upright views of the abdomen and pelvis. COMPARISON: 09/07/2017. CT abdomen pelvis 09/04/2017. FINDINGS: Enteric tube tip over the gastric fundus. There is air distention of small bowel with air-fluid levels, minimally decreased since previous examination, decreased off colonic pockets of air. There is no demonstrated free abdominal air. Normal soft tissue structures. Normal visualized osseous structures. RAD/Abd Inc Decub and/or Erect IMPRESSION: Continued air distention of small bowel, slightly improved suggestive of obstruction or high-grade ileus. Electronically Signed: Gaby Mauricio MD at 6:42 EDT , Service support ,
[2017-09-07 06:28] LABS: AST(SGOT) 22 U/L (15-37); Alanine Aminotransfer ALT/SGPT 33 U/L (16-61); Albumin, Serum 3.2 g/dL (3.2-5.0); Alkaline Phosphatase 50 U/L (45-117); Anion Gap 10 (5-15); BUN 15 mg/dL (7-18); BUN/Creat Ratio 16.8 RATIO (10-20); Bilirubin, Direct 0.99 mg/dL (0.00-0.30); Calcium,Total 8.2 mg/dL (8.5-10.1); Chloride 107 mmol/L (98-107); EST Glomerular Filtration Rate 96 mL/min (>60); Est Glom Filt Rate - Afr Amer 117 mL/min (>60); Estimated Creatinine Clearance 103.64 ml/min; Globulin 3.4 g/dL (2.2-4.2); Glucose 121 mg/dL (74-106); Magnesium 1.9 mg/dL (1.6-2.6); Potassium 3.6 mmol/L (3.5-5.1); Protein, Total 6.6 g/dL (6.4-8.2); Sodium Level 140 mmol/L (136-145)
[2017-09-07 06:42] LABS: Scan Indicated on CBC? Y/N NO
[2017-09-07] MEDS: Enoxaparin 40 MG/0.4 ML Syringe SC (09:39)
[2017-09-07 09:41] VITALS: BP 131/82; PULSE 67; RESP 18; TEMP 36.6; O2SAT 98
[2017-09-07 09:45] VITALS: PULSE 68
--- NOTE | 2017-09-07 10:33 | PCM.PN.SRG ---
Patient Problems: Active and Suspected Problems Small bowel ileus (Acute) Subjective: passing flatus and liquid bowel movements, more comfortable this morning - Physical Exam General: Alert, Oriented x3, Cooperative Lungs: Clear to auscultation, Normal air movement Cardiovascular: Regular rate, No murmurs Abdomen: Bowel Sounds Present, Soft, Hypoactive Bowel Sounds, - - overall less tender and less distended Vital Signs Temp Pulse Resp BP Pulse Ox 97.9 F 68 18 131/82 H 98 09/07/17 09:41 09/07/17 09:45 09/07/17 09:41 09/07/17 09:41 09/07/17 09:41 Oxygen Delivery Method Room Air Weight: 89.9 kg Body Mass Index (BMI) 28.4 Intake and Output for Last 24 Hours 09/05/17 09/06/17 09/07/17 23:59 23:59 23:59 Intake Total 3806 / 3806 3667 / 3667 1848 / 1848 Output Total 1075 / 1075 1525 / 1525 780 / 780 Balance 2731 / 2731 2142 / 2142 1068 / 1068 Laboratory Tests Past 24 Hrs 09/07/17 09/07/17 05:24 05:24 WBC 1.9 L RBC 4.29 L Hgb 12.9 L Hct 37.4 L MCV 87.2 MCH 30.1 MCHC 34.5 RDW 12.9 RDW Differential 41.2 Plt Count 177 MPV 9.5 Sodium 140 Potassium 3.6 Chloride 107 Carbon Dioxide 23.0 Anion Gap 10 BUN 15 Creatinine 0.90 Estim Creat Clear Calc 103.64 Est GFR (MDRD) Af Amer 117 Est GFR (MDRD) Non-Af 96 BUN/Creatinine Ratio 16.8 Glucose 121 H Calcium 8.2 L Magnesium 1.9 Total Bilirubin 2.00 H Direct Bilirubin 0.99 H AST 22 ALT 33 Alkaline Phosphatase 50 Total Protein 6.6 Albumin 3.2 Globulin 3.4 Medical Necessity - Tobacco Use Smoking Status: Never smoker Assessment/Plan All Active Problems Small bowel ileus (Acute) nausea, vomiting, abdominal distention Based on history, exam, laboratory studies and CT scan along with follow-up imaging-I feel his symptoms are more likely consistent with ileus secondary to gastroenteritis. the patient's had no previous intra-abdominal surgeries, CT scan demonstrates no signs of internal herniation and he has both large and small bowel gas. He does have significant small bowel distention, so even though he states he isn't passing and proved flatus today, I would maintain the NG tube to low intermittent suction. follow-up follow-up abdominal multiview from this morning demonstrates improved small bowel dilation with some air in the colon. NG tube was removed. I recommend the patient chew gum and if he is doing well later in the day, restart sips and then clear liquids.
--- NOTE | 2017-09-07 11:03 | PCM.PROGNOTE ---
Patient Problems: Active and Suspected Problems Small bowel ileus (Acute) Subjective: He feels better this morning. He still has mild distention of abdomen and diffuse pain, but it is much better. He had 2 liquid stool this morning and has been passing gas. - Physical Exam General: Alert, Oriented x3, Cooperative, No apparent distress HEENT: Atraumatic, PERRLA, EOMI, Normocephalic Oral: Moist Mucosa Neck: Supple Lungs: Clear to auscultation, Normal air movement, No rhonchi, No wheeze, No rales Cardiovascular: Regular rate, Regular Rhythm, Normal S1, Normal S2, No murmurs, No Ectopic Activity Abdomen: Non Tender, No Hepato-splenomegaly, Bowel Sounds Not Present, Distended Extremities: No clubbing, No cyanosis, No edema Skin: No rashes Musculoskeletal: No Tenderness to Palpation of Joints or Extremities, No Muscle Wasting Lymphatic: No Cervical, Supraclavicular, or Inguinal Adenopathy Neurological: Cranial nerves II-XII grossly intact, Neuro grossly intact Psych/Mental Status: Normal Affect, Appropriate - Physical Exam Vital Signs Temp Pulse Resp BP Pulse Ox 97.9 F 68 18 131/82 H 98 09/07/17 09:41 09/07/17 09:45 09/07/17 09:41 09/07/17 09:41 09/07/17 09:41 Oxygen Delivery Method Room Air Weight: 198 lb 3.129 oz Body Mass Index (BMI) 28.4 Intake and Output for Last 24 Hours 09/05/17 09/06/17 09/07/17 23:59 23:59 23:59 Intake Total 3806 / 3806 3667 / 3667 1848 / 1848 Output Total 1075 / 1075 1525 / 1525 780 / 780 Balance 2731 / 2731 2142 / 2142 1068 / 1068 Laboratory Tests Past 24 Hrs 09/07/17 09/07/17 05:24 05:24 WBC 1.9 L RBC 4.29 L Hgb 12.9 L Hct 37.4 L MCV 87.2 MCH 30.1 MCHC 34.5 RDW 12.9 RDW Differential 41.2 Plt Count 177 MPV 9.5 Sodium 140 Potassium 3.6 Chloride 107 Carbon Dioxide 23.0 Anion Gap 10 BUN 15 Creatinine 0.90 Estim Creat Clear Calc 103.64 Est GFR (MDRD) Af Amer 117 Est GFR (MDRD) Non-Af 96 BUN/Creatinine Ratio 16.8 Glucose 121 H Calcium 8.2 L Magnesium 1.9 Total Bilirubin 2.00 H Direct Bilirubin 0.99 H AST 22 ALT 33 Alkaline Phosphatase 50 Total Protein 6.6 Albumin 3.2 Globulin 3.4 Diagnostic Data Abdomen/Pelvis CT 09/04/17 18:00 IMPRESSION: There is a paralytic ileus of the small intestine with mild gaseous distention. Trace free fluid in the pelvis. The source is not identified. Electronically Signed: Jorgito Spencer MD at 20:28 EDT , Service support , KUB X-Ray 09/04/17 22:28 IMPRESSION: There is a paralytic ileus of the small intestine with mild gaseous distention. There is a feeding tube/ nasogastric tube noted. The tip is in the region of the stomach. Electronically Signed: Jorgito Spencer MD at 22:52 EDT , Service support , Abdomen X-Ray 09/07/17 06:23 IMPRESSION: Continued air distention of small bowel, slightly improved suggestive of obstruction or high-grade ileus. Electronically Signed: Gaby Mauricio MD at 6:42 EDT , Service support , Medical Necessity - Tobacco Use Smoking Status: Never smoker Assessment/Plan All Active Problems Small bowel ileus (Acute) Patient is a 47 yo male, presents with nausea, vomiting, and diarrhea with abdominal pain, started on 09/02, admitted on 09/04/17. He had taken loperamide for diarrhea on 09/02. Creatinine was 1.48 on admission, probably due to dehydration. He was admitted to med-surg floor. NG was inserted from ED; surgery was consulted. On 09/06, abdominal film still shows gaseous distention. He has no previous abdominal surgery, small bowel obstruction is less likely. Abdomen is still quiet and distended, but patient had passes some gas. On 09/07, abdominal film still showed multiple air-fluid levels, but overall distention appeared decreased. Clinically, he is making progress. NGT was removed, and has started on sips then clear liquid. #1 Acute paralytic ileus. Probably induced by loperamide. He appears to have history of IBS with diarrhea, took loperamide in the past, but had tendency to develop constipation with the medication. Continue NG suction. IVF support. #2 PATRICIA. Creatinine 1.48 on admission, likely due to pre-renal dehydration. Creatinine normalized. Continue IVF support. #3 Gastroenteritis. He probably had viral gastroenteritis initially. #4 GERD. H2 lisa IV for now. #5 Leukocytopenia. WBC trending down, 1.9 on 09/07. Etiology is not clear. Repeat CBC with diff in AM. #6 elevated bilirubin. Trended up from 1.8 to 2.0. Liver enzymes normal, and CT on 09/04 showed normal gallbladder. Repeat hepatic panel. Consider GI consult as outpatient. VTE ppx: Lovenox. GI ppx: H2 lisa IV. He is full code. Disposition: Home in 1 to 2 days. Code Visit Inpatient E&M: 07183 Subs Hosp L2
--- NOTE | 2017-09-07 11:13 | PN_ITS ---
Patient Problems: Active and Suspected Problems Small bowel ileus (Acute) Subjective: He feels better this morning. He still has mild distention of abdomen and diffuse pain, but it is much better. He had 2 liquid stool this morning and has been passing gas. - Physical Exam General: Alert, Oriented x3, Cooperative, No apparent distress HEENT: Atraumatic, PERRLA, EOMI, Normocephalic Oral: Moist Mucosa Neck: Supple Lungs: Clear to auscultation, Normal air movement, No rhonchi, No wheeze, No rales Cardiovascular: Regular rate, Regular Rhythm, Normal S1, Normal S2, No murmurs, No Ectopic Activity Abdomen: Non Tender, No Hepato-splenomegaly, Bowel Sounds Not Present, Distended Extremities: No clubbing, No cyanosis, No edema Skin: No rashes Musculoskeletal: No Tenderness to Palpation of Joints or Extremities, No Muscle Wasting Lymphatic: No Cervical, Supraclavicular, or Inguinal Adenopathy Neurological: Cranial nerves II-XII grossly intact, Neuro grossly intact Psych/Mental Status: Normal Affect, Appropriate - Physical Exam Vital Signs Temp Pulse Resp BP Pulse Ox 97.9 F 68 18 131/82 H 98 09/07/17 09:41 09/07/17 09:45 09/07/17 09:41 09/07/17 09:41 09/07/17 09:41 Oxygen Delivery Method Room Air Weight: 198 lb 3.129 oz Body Mass Index (BMI) 28.4 Intake and Output for Last 24 Hours 09/05/17 09/06/17 09/07/17 23:59 23:59 23:59 Intake Total 3806 / 3806 3667 / 3667 1848 / 1848 Output Total 1075 / 1075 1525 / 1525 780 / 780 Balance 2731 / 2731 2142 / 2142 1068 / 1068 Laboratory Tests Past 24 Hrs 09/07/17 09/07/17 05:24 05:24 WBC 1.9 L RBC 4.29 L Hgb 12.9 L Hct 37.4 L MCV 87.2 MCH 30.1 MCHC 34.5 RDW 12.9 RDW Differential 41.2 Plt Count 177 MPV 9.5 Sodium 140 Potassium 3.6 Chloride 107 Carbon Dioxide 23.0 Anion Gap 10 BUN 15 Creatinine 0.90 Estim Creat Clear Calc 103.64 Est GFR (MDRD) Af Amer 117 Est GFR (MDRD) Non-Af 96 BUN/Creatinine Ratio 16.8 Glucose 121 H Calcium 8.2 L Magnesium 1.9 Total Bilirubin 2.00 H Direct Bilirubin 0.99 H AST 22 ALT 33 Alkaline Phosphatase 50 Total Protein 6.6 Albumin 3.2 Globulin 3.4 Diagnostic Data Abdomen/Pelvis CT 09/04/17 18:00 IMPRESSION: There is a paralytic ileus of the small intestine with mild gaseous distention. Trace free fluid in the pelvis. The source is not identified. Electronically Signed: Jorgito Spencer MD at 20:28 EDT , Service support , KUB X-Ray 09/04/17 22:28 IMPRESSION: There is a paralytic ileus of the small intestine with mild gaseous distention. There is a feeding tube/ nasogastric tube noted. The tip is in the region of the stomach. Electronically Signed: Jorgito Spencer MD at 22:52 EDT , Service support , Abdomen X-Ray 09/07/17 06:23 IMPRESSION: Continued air distention of small bowel, slightly improved suggestive of obstruction or high-grade ileus. Electronically Signed: Gaby Mauricio MD at 6:42 EDT , Service support , Medical Necessity - Tobacco Use Smoking Status: Never smoker Assessment/Plan All Active Problems Small bowel ileus (Acute) Patient is a 47 yo male, presents with nausea, vomiting, and diarrhea with abdominal pain, started on 09/02, admitted on 09/04/17. He had taken loperamide for diarrhea on 09/02. Creatinine was 1.48 on admission, probably due to dehydration. He was admitted to med-surg floor. NG was inserted from ED; surgery was consulted. On 09/06, abdominal film still shows gaseous distention. He has no previous abdominal surgery, small bowel obstruction is less likely. Abdomen is still quiet and distended, but patient had passes some gas. On 09/07, abdominal film still showed multiple air-fluid levels, but overall distention appeared decreased. Clinically, he is making progress. NGT was removed, and has started on sips then clear liquid. #1 Acute paralytic ileus. Probably induced by loperamide. He appears to have history of IBS with diarrhea , took loperamide in the past, but had tendency to develop constipation with the medication. Continue NG suction. IVF support. #2 PATRICIA. Creatinine 1.48 on admission, likely due to pre-renal dehydration. Creatinine normalized. Continue IVF support. #3 Gastroenteritis. He probably had viral gastroenteritis initially. #4 GERD. H2 lisa IV for now. #5 Leukocytopenia. WBC trending down, 1.9 on 09/07. Etiology is not clear. Repeat CBC with diff in AM. #6 elevated bilirubin. Trended up from 1.8 to 2.0. Liver enzymes normal, and CT on 09/04 showed normal gallbladder. Repeat hepatic panel. Consider GI consult as outpatient. VTE ppx: Lovenox. GI ppx: H2 lisa IV. He is full code. Disposition: Home in 1 to 2 days. Code Visit Inpatient E&M: 64840 Subs Hosp L2
[2017-09-07] MEDS: 0.9% NaCl Peripheral Flush Adult/Peds IV ×4 (11:51→23:08)
[2017-09-07] MEDS: Famotidine 20mg IV Push Syringe Q12 300 MG IVP ×2 (11:51→21:54)
[2017-09-07 15:29] VITALS: BP 133/80; PULSE 63; RESP 18; TEMP 36.4; O2SAT 99
[2017-09-07 20:00] VITALS: BP 136/91; PULSE 63; RESP 18; TEMP 36.6; O2SAT 100
--- NOTE | 2017-09-07 20:12 | NURSING ---
up ambulating in [place]. gait steady, chewing gum
[2017-09-08] MEDS: Ondansetron 4 MG/2 ML Vial IV ×2 (01:01→17:11)
[2017-09-08] MEDS: 0.9% NaCl Peripheral Flush Adult/Peds IV ×5 (01:02→18:44)
[2017-09-08] MEDS: Dext 5%-0.45% NS 1,000 ML 150 ML IV ×3 (02:21→17:41)
[2017-09-08 02:22] VITALS: BP 139/79; PULSE 58; RESP 16; TEMP 36.9; O2SAT 99
[2017-09-08] MEDS: Ketorolac 15 MG/ML Vial IV ×3 (05:44→18:44)
[2017-09-08 06:13] LABS: Absolute Lymphocyte Count 1.02 X10^3/ul (0.83-4.51); Absolute Neutrophil Count 1.2 X10^3/uL (2.0-7.7); Basophil# 0.01 X10^3/uL; Basophil% 0.4 % (0-1); Eosinophil# 0.12 X10^3/uL; Eosinophils% 4.3 % (0-5); Hematocrit 34.7 % (40-54); Hemoglobin 11.9 g/dl (13.0-16.5); Lymphocyte # 1.02 X10^3/ul (4.0); Lymphocyte % 36.2 % (19-41); Mean Corp Hgb Conc 34.3 g/gl (32-36); Mean Corpuscular Hgb 29.6 pg (27.0-32.0); Mean Corpuscular Volume 86.3 fL (80-94); Mean Platelet Vol. 9.3 fl (6.2-12.0); Monocyte# 0.52 X10^3/uL; Monocyte% 18.4 % (0-10); Neutrophil # 1.15 X10^3/uL (2.7-7.7); Neutrophil % 40.7 % (47-70); Platelet Count 163 K/mm3 (150-450); RBC Distribution Width CV 12.7 % (11.6-14.6); RBC Distribution Width SD 40.6 fl (35.1-43.9); Red Blood Count 4.02 M/mm3 (4.6-6.2); White Blood Count 2.8 K/mm3 (4.4-11.0)
[2017-09-08 06:27] LABS: AST(SGOT) 30 U/L (15-37); Alanine Aminotransfer ALT/SGPT 47 U/L (16-61); Albumin, Serum 2.9 g/dL (3.2-5.0); Alkaline Phosphatase 51 U/L (45-117); Anion Gap 8 (5-15); BUN 9 mg/dL (7-18); BUN/Creat Ratio 10.8 RATIO (10-20); Bilirubin, Direct 0.72 mg/dL (0.00-0.30); Chloride 108 mmol/L (98-107); Creatinine, Serum 0.83 mg/dL (0.70-1.30); EST Glomerular Filtration Rate 105 mL/min (>60); Est Glom Filt Rate - Afr Amer 127 mL/min (>60); Estimated Creatinine Clearance 112.38 ml/min; Globulin 3.1 g/dL (2.2-4.2); Glucose 105 mg/dL (74-106); Potassium 3.3 mmol/L (3.5-5.1); Sodium Level 142 mmol/L (136-145)
[2017-09-08 06:41] LABS: POSITIVE COUNT NO; POSITIVE DIFFERENTIAL NO; POSITIVE MORPHOLOGY NO
--- NOTE | 2017-09-08 06:49 | PCM.PN.SRG ---
Patient Problems: Active and Suspected Problems Small bowel ileus (Acute) Subjective: some liquid stool, some flatus, still abdominal cramping - Physical Exam General: Alert, Oriented x3, Cooperative Lungs: Clear to auscultation, Normal air movement Cardiovascular: Regular rate, No murmurs Abdomen: Bowel Sounds Present, Soft, Hypoactive Bowel Sounds - less tender, ledd distended Vital Signs Temp Pulse Resp BP Pulse Ox 98.4 F 58 L 16 139/79 H 99 09/08/17 02:22 09/08/17 02:22 09/08/17 02:22 09/08/17 02:22 09/08/17 02:22 Oxygen Delivery Method Room Air Weight: 89.9 kg Body Mass Index (BMI) 28.4 Intake and Output for Last 24 Hours 09/06/17 09/07/17 09/08/17 23:59 23:59 23:59 Intake Total 3667 / 3667 4381 / 4381 925 / 925 Output Total 1525 / 1525 1280 / 1280 500 / 500 Balance 2142 / 2142 3101 / 3101 425 / 425 Laboratory Tests Past 24 Hrs 09/08/17 09/08/17 05:42 05:42 WBC 2.8 L RBC 4.02 L Hgb 11.9 L Hct 34.7 L MCV 86.3 MCH 29.6 MCHC 34.3 RDW 12.7 RDW Differential 40.6 Plt Count 163 MPV 9.3 Immature Gran % (Auto) 0.000 Neut % (Auto) 40.7 L Lymph % (Auto) 36.2 [place] % (Auto) 18.4 H Eos % (Auto) 4.3 Baso % (Auto) 0.4 Absolute Neuts (auto) 1.2 L Absolute Lymphs (auto) 1.02 Total Counted Not Reportable Sodium 142 Potassium 3.3 L Chloride 108 H Carbon Dioxide 26.0 Anion Gap 8 BUN 9 Creatinine 0.83 Estim Creat Clear Calc 112.38 Est GFR (MDRD) Af Amer 127 Est GFR (MDRD) Non-Af 105 BUN/Creatinine Ratio 10.8 Glucose 105 Calcium 8.0 L Total Bilirubin 1.50 H Direct Bilirubin 0.72 H AST 30 ALT 47 Alkaline Phosphatase 51 Total Protein 6.0 L Albumin 2.9 L Globulin 3.1 Medical Necessity - Tobacco Use Smoking Status: Never smoker Assessment/Plan All Active Problems Small bowel ileus (Acute) nausea, vomiting, abdominal distention Based on history, exam, laboratory studies and CT scan along with follow-up imaging-I feel his symptoms are more likely consistent with ileus secondary to gastroenteritis. the patient's had no previous intra-abdominal surgeries, CT scan demonstrates no signs of internal herniation and he has both large and small bowel gas. He does have significant small bowel distention, so even though he states he isn't passing and proved flatus today, I would maintain the NG tube to low intermittent suction. follow-up follow-up abdominal multiview from Friday demonstrates improved small bowel dilation with some air in the colon. NG tube was removed and patient tolerated sips. I recommend the patient chew gum. We will restart clear liquids.
[2017-09-08 09:51] VITALS: BP 129/87; PULSE 55; RESP 18; TEMP 36.8; O2SAT 96
[2017-09-08] MEDS: Enoxaparin 40 MG/0.4 ML Syringe SC (10:04)
[2017-09-08] MEDS: Pantoprazole Sodium 40 MG Tablet PO ×2 (10:04→20:50)
--- NOTE | 2017-09-08 10:21 | PCM.PN.HOSP ---
Patient Problems: Active and Suspected Problems Small bowel ileus (Acute) Subjective: feeling better, but still with abdominal pain (currently 5/10). Complains of some heart burn. + Flatus and liquid BMs. Vitals/I&O's: Vital Signs Temp Pulse Resp BP Pulse Ox 36.8 C 55 L 18 129/87 H 96 09/08/17 09:51 09/08/17 09:51 09/08/17 09:51 09/08/17 09:51 09/08/17 09:51 Oxygen Delivery Method Room Air Weight: 89.9 kg Body Mass Index (BMI) 28.4 Intake and Output for Last 24 Hours 09/06/17 09/07/17 09/08/17 23:59 23:59 23:59 Intake Total 3667 / 3667 4381 / 4381 925 / 925 Output Total 1525 / 1525 1280 / 1280 500 / 500 Balance 2142 / 2142 3101 / 3101 425 / 425 General: Alert, No apparent distress HEENT: Atraumatic, Normocephalic Neck: No Nodes, Thyroid Normal Size and Texture Lungs: Clear to auscultation, Normal air movement, No rhonchi, No wheeze Cardiovascular: Regular rate, Regular Rhythm, Normal S1, Normal S2, No murmurs Abdomen: Non Tender, Hypoactive Bowel Sounds, Distended Extremities: No edema, No Calf Tenderness Psych/Mental Status: Normal Affect, Appropriate Laboratory Results 09/08/17 05:42: Sodium 142, Potassium 3.3 L, Chloride 108 H, Carbon Dioxide 26.0, Anion Gap 8, BUN 9, Creatinine 0.83, Estim Creat Clear Calc 112.38, Est GFR (MDRD) Af Amer 127, Est GFR (MDRD) Non-Af 105, BUN/Creatinine Ratio 10.8, Glucose 105, Calcium 8.0 L, Total Bilirubin 1.50 H, Direct Bilirubin 0.72 H, AST 30, ALT 47, Alkaline Phosphatase 51, Total Protein 6.0 L, Albumin 2.9 L, Globulin 3.1 09/08/17 05:42: WBC 2.8 L, RBC 4.02 L, Hgb 11.9 L, Hct 34.7 L, MCV 86.3, MCH 29.6, MCHC 34.3, RDW 12.7, RDW Differential 40.6, Plt Count 163, MPV 9.3, Immature Gran % (Auto) 0.000, Neut % (Auto) 40.7 L, Lymph % (Auto) 36.2, [place] % (Auto) 18.4 H, Eos % (Auto) 4.3, Baso % (Auto) 0.4, Absolute Neuts (auto) 1.2 L, Absolute Lymphs (auto) 1.02, Total Counted Not Reportable Current Medications Enoxaparin Sodium (Lovenox) 40 mg SC DAILY [facility] Last Admin: 09/08/17 10:04 Dose: 40 mg Dextrose/Sodium Chloride () 1,000 mls @ 150 mls/hr IV .Q6H40M [facility] Last Admin: 09/08/17 09:47 Dose: 150 mls/hr Ketorolac Tromethamine (Toradol) 15 mg IV Q6 [facility] Stop: 09/10/17 00:16 Last Admin: 09/08/17 05:44 Dose: 15 mg Lidocaine HCl (Xylocaine Viscous) 5 ml PO Q4H PRN PRN PRN Reason: throat pain/irritation Last Admin: 09/05/17 00:35 Dose: 5 ml Magnesium Hydroxide (Milk Of Magnesia) 30 ml PO DAILY PRN PRN PRN Reason: Constipation Morphine Sulfate () 4 - 6 mg IV Q4H PRN PRN PRN Reason: SEVERE PAIN (6-10/10) Last Admin: 09/06/17 15:45 Dose: 4 mg Ondansetron HCl (Zofran) 4 mg IV Q4H PRN PRN PRN Reason: NAUSEA Last Admin: 09/08/17 01:01 Dose: 4 mg Pantoprazole Sodium (Protonix) 40 mg PO BID [facility] Last Admin: 09/08/17 10:04 Dose: 40 mg Promethazine HCl (Phenergan) 12.5 mg IV Q6H PRN PRN PRN Reason: NAUSEA/VOMITING Sodium Chloride () 5 - 30 ml IV UD PRN PRN Reason: SALINE FLUSH Last Admin: 09/08/17 05:44 Dose: 10 ml Medical Necessity - Tobacco Use Smoking Status: Never smoker Assessment/Plan All Active Problems Small bowel ileus (Acute) 1. Ileus v SBO improving tolerating clears so far, but still with some abdominal pain General surgery following advance diet as tolerated 2. GERD DC H2B, and change to PPI (takes prilosec at home) 3. DVT proph: LMWH Code Visit Inpatient E&M: 81192 Subs Hosp L2
[2017-09-08 10:22] LABS: Pathologist Review Reviewed
--- NOTE | 2017-09-08 10:25 | PN_ITS ---
Patient Problems: Active and Suspected Problems Small bowel ileus (Acute) Subjective: feeling better, but still with abdominal pain (currently 5/10). Complains of some heart burn. + Flatus and liquid BMs. Vitals/I&O's: Vital Signs Temp Pulse Resp BP Pulse Ox 36.8 C 55 L 18 129/87 H 96 09/08/17 09:51 09/08/17 09:51 09/08/17 09:51 09/08/17 09:51 09/08/17 09:51 Oxygen Delivery Method Room Air Weight: 89.9 kg Body Mass Index (BMI) 28.4 Intake and Output for Last 24 Hours 09/06/17 09/07/17 09/08/17 23:59 23:59 23:59 Intake Total 3667 / 3667 4381 / 4381 925 / 925 Output Total 1525 / 1525 1280 / 1280 500 / 500 Balance 2142 / 2142 3101 / 3101 425 / 425 General: Alert, No apparent distress HEENT: Atraumatic, Normocephalic Neck: No Nodes, Thyroid Normal Size and Texture Lungs: Clear to auscultation, Normal air movement, No rhonchi, No wheeze Cardiovascular: Regular rate, Regular Rhythm, Normal S1, Normal S2, No murmurs Abdomen: Non Tender, Hypoactive Bowel Sounds, Distended Extremities: No edema, No Calf Tenderness Psych/Mental Status: Normal Affect, Appropriate Laboratory Results 09/08/17 05:42: Sodium 142, Potassium 3.3 L, Chloride 108 H, Carbon Dioxide 26.0 , Anion Gap 8, BUN 9, Creatinine 0.83, Estim Creat Clear Calc 112.38, Est GFR ( MDRD) Af Amer 127, Est GFR (MDRD) Non-Af 105, BUN/Creatinine Ratio 10.8, Glucose 105, Calcium 8.0 L, Total Bilirubin 1.50 H, Direct Bilirubin 0.72 H, AST 30, ALT 47, Alkaline Phosphatase 51, Total Protein 6.0 L, Albumin 2.9 L, Globulin 3.1 09/08/17 05:42: WBC 2.8 L, RBC 4.02 L, Hgb 11.9 L, Hct 34.7 L, MCV 86.3, MCH 29.6, MCHC 34.3, RDW 12.7, RDW Differential 40.6, Plt Count 163, MPV 9.3, Immature Gran % (Auto) 0.000, Neut % (Auto) 40.7 L, Lymph % (Auto) 36.2, [place] % (Auto) 18.4 H, Eos % (Auto) 4.3, Baso % (Auto) 0.4, Absolute Neuts (auto) 1.2 L , Absolute Lymphs (auto) 1.02, Total Counted Not Reportable Current Medications Enoxaparin Sodium (Lovenox) 40 mg SC DAILY [facility] Last Admin: 09/08/17 10:04 Dose: 40 mg Dextrose/Sodium Chloride () 1,000 mls @ 150 mls/hr IV .Q6H40M [facility] Last Admin: 09/08/17 09:47 Dose: 150 mls/hr Ketorolac Tromethamine (Toradol) 15 mg IV Q6 [facility] Stop: 09/10/17 00:16 Last Admin: 09/08/17 05:44 Dose: 15 mg Lidocaine HCl (Xylocaine Viscous) 5 ml PO Q4H PRN PRN PRN Reason: throat pain/irritation Last Admin: 09/05/17 00:35 Dose: 5 ml Magnesium Hydroxide (Milk Of Magnesia) 30 ml PO DAILY PRN PRN PRN Reason: Constipation Morphine Sulfate () 4 - 6 mg IV Q4H PRN PRN PRN Reason: SEVERE PAIN (6-10/10) Last Admin: 09/06/17 15:45 Dose: 4 mg Ondansetron HCl (Zofran) 4 mg IV Q4H PRN PRN PRN Reason: NAUSEA Last Admin: 09/08/17 01:01 Dose: 4 mg Pantoprazole Sodium (Protonix) 40 mg PO BID [facility] Last Admin: 09/08/17 10:04 Dose: 40 mg Promethazine HCl (Phenergan) 12.5 mg IV Q6H PRN PRN PRN Reason: NAUSEA/VOMITING Sodium Chloride () 5 - 30 ml IV UD PRN PRN Reason: SALINE FLUSH Last Admin: 09/08/17 05:44 Dose: 10 ml Medical Necessity - Tobacco Use Smoking Status: Never smoker Assessment/Plan All Active Problems Small bowel ileus (Acute) 1. Ileus * v SBO * improving * tolerating clears so far, but still with some abdominal pain * General surgery following * advance diet as tolerated 2. GERD * DC H2B, and change to PPI (takes prilosec at home) 3. DVT proph: * LMWH Code Visit Inpatient E&M: 96266 Subs Hosp L2
[2017-09-08 16:55] VITALS: BP 137/79; PULSE 68; RESP 20; TEMP 36.8; O2SAT 98
--- NOTE | 2017-09-08 17:04 | NURSING ---
PT STATED HE STARTED HAVING CRAMPING AROUND 1615 TODAY. ONLY THING HE HAS HAD TODAY TO EAT WAS 120CC OF APPLE JUICE AND IT HAD STAYED DOWN UNTIL 161 AND THEN HAD 300ML OF BILE EMESIS. PT STATES HE FEELS LIKE HE IS HAVING THE SAME SYMPTOMS HE DID AT HOME PRIOR TO COMING TO HOSPITAL. BS ARE VERY HYPOACTIVE, ABD SOFT, TENDER.
--- NOTE | 2017-09-08 17:40 | RAD_ITS ---
STUDY: X-RAY - ABDOMEN/PELVIS REASON FOR EXAM: Male, 47 years old. Ileus, nausea, vomiting TECHNIQUE: AP supine and upright views of the abdomen and pelvis. COMPARISON: 09/07/2017. FINDINGS: Normal visualized lung bases. There are dilated loops of the small intestine with a non-distended colon consistent with a small bowel obstruction. There is no demonstrated free abdominal air. The visualized liver, spleen and kidneys are grossly normal in size and morphology. Normal soft tissue structures. Normal visualized osseous structures. RAD/Abd Inc Decub and/or Erect IMPRESSION: Small bowel obstruction. No free air. No significant change. NG tube removed. Electronically Signed: Magdiel Powell DO at 20:35 EDT , Service support ,
--- NOTE | 2017-09-08 17:49 | NURSING ---
Dr. Miller here on the unit. Informed his that pt had vomitting at 1615 and now cramping abd pain. Orders for abd xray and hold clears for now.
[2017-09-08 20:32] VITALS: BP 138/84; PULSE 58; RESP 18; TEMP 36.8; O2SAT 98
[2017-09-08 20:37] VITALS: PULSE 58; RESP 18; O2SAT 98
[2017-09-09] VITALS (11 sets, daily range): BP systolic 113–142; BP diastolic 69–87; PULSE 58–74; RESP 14–18; TEMP 36.1–36.8; O2SAT 91–100
[2017-09-09] MEDS: Ketorolac 15 MG/ML Vial IV ×3 (00:06→20:02)
[2017-09-09] MEDS: Dext 5%-0.45% NS 1,000 ML 150 ML IV ×2 (02:11→17:17)
[2017-09-09] MEDS: 0.9% NaCl Peripheral Flush Adult/Peds IV ×2 (04:33→15:51)
--- NOTE | 2017-09-09 05:00 | RAD_ITS ---
STUDY: X-RAY - ABDOMEN/PELVIS REASON FOR EXAM: Male, 47 years old. Small bowel obstruction. TECHNIQUE: Upright and supine abdomen. COMPARISON: September 08, 2017. FINDINGS: Normal visualized lung bases. Multiple dilated loops of small bowel with air-fluid levels. Some loops dilated to 4.4 cm compatible with a distal small bowel obstruction slightly worse as compared to the prior study. There is no demonstrated free abdominal air. The visualized liver, spleen and kidneys are grossly normal in size and morphology. Normal soft tissue structures. Normal visualized osseous structures. RAD/Abd Inc Decub and/or Erect IMPRESSION: Worsening distal small bowel obstruction. Electronically Signed: Riccardo Garland MD at 5:40 EDT , Service support ,
--- NOTE | 2017-09-09 05:13 | CT_ITS ---
STUDY: CT ABDOMEN AND PELVIS WITH CONTRAST REASON FOR EXAM: Male, 47 years old. Nausea and vomiting. Possible small bowel obstruction. RADIATION DOSAGE (If Supplied By Facility): CTDIvol = ( 16.31 ) mGy, DLP = ( 1242.17 ) mGycm TECHNIQUE: Transaxial images were obtained from the dome of the diaphragm to the symphysis pubis with oral contrast. 100 ml of Isovue 300 contrast was administered. Sagittal and coronal images were reconstructed. Individualized dose optimization techniques were used for this CT. COMPARISON: Comparison is made with prior examination dated September 04, 2017. FINDINGS: The visualized lung bases are unremarkable. The visualized portions of the heart are within normal limits. Normal liver. Small amount of perihepatic fluid. Normal gallbladder and extrahepatic biliary system. Normal spleen. Normal pancreas. Normal bilateral adrenal glands. Normal right kidney. Normal left kidney. Normal visualized stomach. There are dilated loops of the small intestine with a non-distended colon consistent with a small bowel obstruction. The transition point appears to be in the distal small bowel. A small amount of free fluid is seen in the right side of the pelvis as well as in the cul-de-sac. Normal colon. The appendix is visualized and appears normal. Normal abdominal aorta. Normal inferior vena cava. Normal retroperitoneum. Normal urinary bladder. Normal abdominal wall. Normal osseous structures. CT/Abdomen/Pelvis WITH Contrast IMPRESSION: Findings suggestive of a small bowel obstruction with the transition point in the distal small bowel. Small amount of perihepatic fluid as well as small amount of fluid in the right lower quadrant and within the pelvis. Electronically Signed: Abel Villalobos MD at 11:26 EDT Tel [phone], Service support ,
[2017-09-09 05:53] LABS: Absolute Lymphocyte Count 1.23 X10^3/ul (0.83-4.51); Basophil# 0.01 X10^3/uL; Basophil% 0.3 % (0-1); Eosinophil# 0.12 X10^3/uL; Eosinophils% 4.1 % (0-5); Hematocrit 34.5 % (40-54); Hemoglobin 12.3 g/dl (13.0-16.5); Lymphocyte # 1.23 X10^3/ul (4.0); Lymphocyte % 42.3 % (19-41); Mean Corp Hgb Conc 35.7 g/gl (32-36); Mean Corpuscular Hgb 30.8 pg (27.0-32.0); Mean Corpuscular Volume 86.5 fL (80-94); Mean Platelet Vol. 9.7 fl (6.2-12.0); Monocyte# 0.54 X10^3/uL; Monocyte% 18.6 % (0-10); Neutrophil # 1.01 X10^3/uL (2.7-7.7); Neutrophil % 34.7 % (47-70); Platelet Count 182 K/mm3 (150-450); RBC Distribution Width CV 12.5 % (11.6-14.6); RBC Distribution Width SD 38.6 fl (35.1-43.9); Red Blood Count 3.99 M/mm3 (4.6-6.2); White Blood Count 2.9 K/mm3 (4.4-11.0)
[2017-09-09 05:59] LABS: POSITIVE COUNT NO; POSITIVE DIFFERENTIAL NO; POSITIVE MORPHOLOGY NO
[2017-09-09 06:26] LABS: Anion Gap 9 (5-15); BUN 9 mg/dL (7-18); BUN/Creat Ratio 10.2 RATIO (10-20); Calcium,Total 8.2 mg/dL (8.5-10.1); Chloride 107 mmol/L (98-107); Creatinine, Serum 0.88 mg/dL (0.70-1.30); EST Glomerular Filtration Rate 98 mL/min (>60); Est Glom Filt Rate - Afr Amer 119 mL/min (>60); Glucose 93 mg/dL (74-106); Potassium 3.3 mmol/L (3.5-5.1); Sodium Level 141 mmol/L (136-145)
[2017-09-09] MEDS: Pantoprazole Sodium 40 MG Tablet PO ×2 (09:30→22:11)
[2017-09-09] MEDS: Enoxaparin 40 MG/0.4 ML Syringe SC (09:31)
--- NOTE | 2017-09-09 10:03 | PCM.PN.HOSP ---
Patient Problems: Active and Suspected Problems Small bowel ileus (Acute) Subjective: Heels better. Passing gas and bowel movements. Drink contrast for the CAT scan without any abdominal cramping. Vitals/I&O's: Vital Signs Temp Pulse Resp BP Pulse Ox 36.8 C 58 L 14 123/80 H 98 09/09/17 09:22 09/09/17 09:22 09/09/17 09:22 09/09/17 09:22 09/09/17 09:22 Oxygen Delivery Method Room Air Weight: 89.9 kg Body Mass Index (BMI) 28.4 Intake and Output for Last 24 Hours 09/07/17 09/08/17 09/09/17 23:59 23:59 23:59 Intake Total 4381 / 4381 2763 / 2763 1757 / 1757 Output Total 1280 / 1280 1275 / 1275 175 / 175 Balance 3101 / 3101 1488 / 1488 1582 / 1582 General: Alert, No apparent distress HEENT: Atraumatic, Normocephalic Oral: Moist Mucosa Neck: No Nodes, Thyroid Normal Size and Texture Lungs: Clear to auscultation, Normal air movement, No rhonchi, No wheeze Cardiovascular: Regular rate, Regular Rhythm, Normal S1, Normal S2, No murmurs Abdomen: Bowel Sounds Present, Soft, Non Tender, Non-Distended, No Hepato-splenomegaly Extremities: No edema, No Calf Tenderness Psych/Mental Status: Normal Affect, Appropriate Laboratory Results 09/09/17 05:40: Sodium 141, Potassium 3.3 L, Chloride 107, Carbon Dioxide 25.0, Anion Gap 9, BUN 9, Creatinine 0.88, Estim Creat Clear Calc 106.00, Est GFR (MDRD) Af Amer 119, Est GFR (MDRD) Non-Af 98, BUN/Creatinine Ratio 10.2, Glucose 93, Calcium 8.2 L 09/09/17 05:40: WBC 2.9 L, RBC 3.99 L, Hgb 12.3 L, Hct 34.5 L, MCV 86.5, MCH 30.8, MCHC 35.7, RDW 12.5, RDW Differential 38.6, Plt Count 182, MPV 9.7, Immature Gran % (Auto) 0.000, Neut % (Auto) 34.7 L, Lymph % (Auto) 42.3 H, [place] % (Auto) 18.6 H, Eos % (Auto) 4.1, Baso % (Auto) 0.3, Absolute Neuts (auto) 1.0 L, Absolute Lymphs (auto) 1.23, Total Counted Not Reportable Current Medications Enoxaparin Sodium (Lovenox) 40 mg SC DAILY [facility] Last Admin: 09/09/17 09:31 Dose: 40 mg Dextrose/Sodium Chloride () 1,000 mls @ 150 mls/hr IV .Q6H40M [facility] Last Admin: 09/09/17 02:11 Dose: 150 mls/hr Ketorolac Tromethamine (Toradol) 15 mg IV Q6 [facility] Stop: 09/10/17 00:16 Last Admin: 09/09/17 05:14 Dose: 15 mg Lidocaine HCl (Xylocaine Viscous) 5 ml PO Q4H PRN PRN PRN Reason: throat pain/irritation Last Admin: 09/05/17 00:35 Dose: 5 ml Magnesium Hydroxide (Milk Of Magnesia) 30 ml PO DAILY PRN PRN PRN Reason: Constipation Morphine Sulfate () 4 - 6 mg IV Q4H PRN PRN PRN Reason: SEVERE PAIN (6-10/10) Last Admin: 09/06/17 15:45 Dose: 4 mg Ondansetron HCl (Zofran) 4 mg IV Q4H PRN PRN PRN Reason: NAUSEA Last Admin: 09/08/17 17:11 Dose: 4 mg Pantoprazole Sodium (Protonix) 40 mg PO BID [facility] Last Admin: 09/09/17 09:30 Dose: 40 mg Promethazine HCl (Phenergan) 12.5 mg IV Q6H PRN PRN PRN Reason: NAUSEA/VOMITING Sodium Chloride () 5 - 30 ml IV UD PRN PRN Reason: SALINE FLUSH Last Admin: 09/09/17 04:33 Dose: 20 ml Medical Necessity - Tobacco Use Smoking Status: Never smoker Assessment/Plan All Active Problems Small bowel ileus (Acute) 1. Ileus v SBO improving tolerating clears so far, but still with some abdominal pain General surgery following advance diet as tolerated X-ray today showed worsening small bowel obstruction so CAT scan was ordered. Results of which are still pending at this time. 2. GERD DC H2B, and change to PPI (takes prilosec at home) 3. DVT proph: LMWH Code Visit Inpatient E&M: [id number] Subs Hosp L2
--- NOTE | 2017-09-09 11:15 | RAD_ITS ---
STUDY: X-RAY - ABDOMEN/PELVIS REASON FOR EXAM: Male, 47 years old. Possible small bowel obstruction. TECHNIQUE: AP supine and upright views of the abdomen and pelvis. COMPARISON: Comparison is made with prior study dated September 09, 2017 at 4:46 AM. FINDINGS: Normal visualized lung bases. There are dilated loops of the small intestine with a non-distended colon consistent with a small bowel obstruction. Contrast from prior CT scan is seen within the colon. This may represent an incomplete small bowel obstruction. There is no demonstrated free abdominal air. Contrast is seen within the renal collecting system. 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 There are calcified phleboliths in the pelvis. Normal visualized osseous structures. RAD/Abd Inc Decub and/or Erect IMPRESSION: Dilated small bowel loops with air-fluid levels. Oral contrast is seen within the colon. This may represent an incomplete small bowel obstruction. Electronically Signed: Abel Villalobos MD at 11:34 EDT Tel [phone], Service support ,
[2017-09-09] MEDS: Cefazolin 2 GM in 0.9% Normal Saline 100 ML IV (13:13)
--- NOTE | 2017-09-09 13:18 | PN.SURG_ITS ---
Patient Problems: Active and Suspected Problems Small bowel ileus (Acute) Subjective: multiple bowel movements, less pain - Physical Exam General: Alert, Oriented x3 Lungs: Clear to auscultation, Normal air movement Cardiovascular: Regular rate, Regular Rhythm Abdomen: Bowel Sounds Present, Soft, Distended Vital Signs Temp Pulse Resp BP Pulse Ox 98.2 F 58 L 14 123/80 H 98 09/09/17 09:22 09/09/17 09:22 09/09/17 09:22 09/09/17 09:22 09/09/17 09:22 Oxygen Delivery Method Room Air Weight: 89.9 kg Body Mass Index (BMI) 28.4 Intake and Output for Last 24 Hours 09/07/17 09/08/17 09/09/17 23:59 23:59 23:59 Intake Total 4381 / 4381 2763 / 2763 1757 / 1757 Output Total 1280 / 1280 1275 / 1275 175 / 175 Balance 3101 / 3101 1488 / 1488 1582 / 1582 Laboratory Tests Past 24 Hrs 09/09/17 09/09/17 05:40 05:40 WBC 2.9 L RBC 3.99 L Hgb 12.3 L Hct 34.5 L MCV 86.5 MCH 30.8 MCHC 35.7 RDW 12.5 RDW Differential 38.6 Plt Count 182 MPV 9.7 Immature Gran % (Auto) 0.000 Neut % (Auto) 34.7 L Lymph % (Auto) 42.3 H [place] % (Auto) 18.6 H Eos % (Auto) 4.1 Baso % (Auto) 0.3 Absolute Neuts (auto) 1.0 L Absolute Lymphs (auto) 1.23 Total Counted Not Reportable Sodium 141 Potassium 3.3 L Chloride 107 Carbon Dioxide 25.0 Anion Gap 9 BUN 9 Creatinine 0.88 Estim Creat Clear Calc 106.00 Est GFR (MDRD) Af Amer 119 Est GFR (MDRD) Non-Af 98 BUN/Creatinine Ratio 10.2 Glucose 93 Calcium 8.2 L Medical Necessity - Tobacco Use Smoking Status: Never smoker Assessment/Plan All Active Problems Small bowel ileus (Acute) nausea, vomiting, abdominal distention - failed trial of orals -? distal high grade partial SBO Patient vomited after scant liquids last night. abdominal multiview last night and this morning demonstrated worsening SBO picture. CT scan demonstrated a transition point in the RLQ. While the patient is having liquid stools, KUB still demonstrated partial SBO. We discussed the risks and benefits and elected to peroceed with laparoscopic, possible open exploration.
[2017-09-09] MEDS: Bupivacaine Mpf 0.5% 30 ML VIAL (13:34)
--- NOTE | 2017-09-09 14:27 | PCM.OPRPT ---
Report of Operation Date of Procedure: 09/09/17 Pre-Operative Diagnosis: HIGH GRADE SMALL BOWEL OBSTRUCTION Post-Operative Diagnosis: HIGH GRADE SMALL BOWEL OBSTRUCTION, TERMINAL ILEAL Surgery/Procedure Performed:: LAPAROSCOPIC EXPLORATION, LAPAROSCOPIC LYSIS OF ADHESIONS book coverer: None Type of Anesthesia:: General Anesthesiologist: Mauro Almanza - [id number] Specimen's removed: NONE Estimated Blood Loss (mL): MINIMAL Fluids Replaced: 1100 Description of Procedure: The patient was brought to the operating suite. Sign in was performed verifying patient, site, procedure, position, and DVT prophylaxis with SCDs. Patient received 2 g Ancef for presumed appendicitis. Following induction of general anesthetic. The patients abdomen was prepped and draped in the usual fashion. Timeout was performed verifying patient, site, position. Local anesthetic was injected below the umbilicus. Incision made and dissection carried down to the umbilical root fascia. 2 stay sutures were placed. Incision made in the fascia, the peritoneum entered under direct visualization. A 10 mm Campos trocar was inserted and secured with the stay sutures. Pneumoperitoneum to 15 mmHg was insufflated. 2 5mm ports were placed in the standard position. Visual inspection revealed dilated small bowel throughout the abdomen traveling down towards the pelvis. There was slightly bilious tinged fluid in the pelvis. There were adhesions of what amounted to be the last foot to foot and a half of terminal ileum, both into the pelvic sidewall and with interloop adhesions. the cecum and appendix appeared normal and were collapsed. laparoscopic lysis of adhesions and then undertaken freeing up the terminal ileum from the ileocecal valve proximally. This was performed with a laparoscopic Metzenbaum scissors. Adhesions to the retroperitoneum were taken down. A Harmonic Scalpel was used. Were able to provide hemostasis and division. There were noted to be 3 areas of intraloop adhesions between the small bowel. These were taken down with laparoscopic Metzenbaum scissors. At the conclusion of the dissection process, the small bowel which was dilated was noted to funnel down at the noted transition point. the small bowel was run for approximately 5 feet to assure there is no Meckel's diverticulum. There were no signs of adhesions to his previous inguinal herniasite-which the mother recalls was a left inguinal hernia for a hydrocele as a child younger than age 4. He had no signs of diverticulitis with inflammation. In general,-, there was no obvious reason for him to have adhesions in the area. An 0 PDS [id number] suture was placed around the umbilical port site defect. Pneumoperitoneum was reestablished. intercede was placed in the retroperitoneum behind the terminal ileum and then anterior to the terminal ileum to help prevent interloop future adhesions. 5mm ports were removed under direct visualization with no signs of bleeding. Pneumoperitoneum was released. The Campos trocar was removed. The umbilical fascial suture was secured area did skin was closed with interrupted 4-0 Monocryl subcuticular sutures. Steri-Strips and bandages were applied. The patient was brought to recovery room in stable condition. - Admit VTE Documentation VTE Present on Admission: No VTE Mechan Device Prophylaxis: SCD's VTE Pharm Prophylaxis ordered?: Yes
--- NOTE | 2017-09-09 14:30 | OP.PCM_ITS ---
Report of Operation Date of Procedure: 09/09/17 Pre-Operative Diagnosis: HIGH GRADE SMALL BOWEL OBSTRUCTION Post-Operative Diagnosis: HIGH GRADE SMALL BOWEL OBSTRUCTION, TERMINAL ILEAL Surgery/Procedure Performed:: LAPAROSCOPIC EXPLORATION, LAPAROSCOPIC LYSIS OF ADHESIONS instrument technician: None Type of Anesthesia:: General Anesthesiologist: Mauro Almanza - ASA2E Specimen's removed: NONE Estimated Blood Loss (mL): MINIMAL Fluids Replaced: 1100 Description of Procedure: The patient was brought to the operating suite. Sign in was performed verifying patient, site, procedure, position, and DVT prophylaxis with SCDs. Patient received 2 g Ancef for presumed appendicitis. Following induction of general anesthetic. The patient?s abdomen was prepped and draped in the usual fashion. Timeout was performed verifying patient, site , position. Local anesthetic was injected below the umbilicus. Incision made and dissection carried down to the umbilical root fascia. 2 stay sutures were placed. Incision made in the fascia, the peritoneum entered under direct visualization. A 10 mm Campos trocar was inserted and secured with the stay sutures. Pneumoperitoneum to 15 mmHg was insufflated. 2 5mm ports were placed in the standard position. Visual inspection revealed dilated small bowel throughout the abdomen traveling down towards the pelvis. There was slightly bilious tinged fluid in the pelvis. There were adhesions of what amounted to be the last foot to foot and a half of terminal ileum, both into the pelvic sidewall and with interloop adhesions. the cecum and appendix appeared normal and were collapsed. laparoscopic lysis of adhesions and then undertaken freeing up the terminal ileum from the ileocecal valve proximally. This was performed with a laparoscopic Metzenbaum scissors. Adhesions to the retroperitoneum were taken down. A Harmonic Scalpel was used. Were able to provide hemostasis and division. There were noted to be 3 areas of intraloop adhesions between the small bowel. These were taken down with laparoscopic Metzenbaum scissors. At the conclusion of the dissection process, the small bowel which was dilated was noted to funnel down at the noted transition point. the small bowel was run for approximately 5 feet to assure there is no Meckel's diverticulum. There were no signs of adhesions to his previous inguinal herniasite-which the mother recalls was a left inguinal hernia for a hydrocele as a child younger than age 4. He had no signs of diverticulitis with inflammation. In general,-, there was no obvious reason for him to have adhesions in the area. An 0 PDS aggaak-se-gezim suture was placed around the umbilical port site defect. Pneumoperitoneum was reestablished. intercede was placed in the retroperitoneum behind the terminal ileum and then anterior to the terminal ileum to help prevent interloop future adhesions. 5mm ports were removed under direct visualization with no signs of bleeding. Pneumoperitoneum was released. The Campos trocar was removed. The umbilical fascial suture was secured area did skin was closed with interrupted 4-0 Monocryl subcuticular sutures. Steri-Strips and bandages were applied. The patient was brought to recovery room in stable condition. - Admit VTE Documentation VTE Present on Admission: No VTE Mechan Device Prophylaxis: SCD's VTE Pharm Prophylaxis ordered?: Yes
--- NOTE | 2017-09-09 19:23 | NURSING ---
Patient up and walking in hallway at this time.
--- NOTE | 2017-09-09 22:29 | NURSING ---
Patient up and walking in hallway at this time.
[2017-09-10] MEDS: Ketorolac 15 MG/ML Vial IV (00:26)
[2017-09-10] MEDS: Dext 5%-0.45% NS 1,000 ML 150 ML IV ×4 (00:26→21:09)
[2017-09-10 00:35] VITALS: BP 117/74; PULSE 64; RESP 16; TEMP 36.9; O2SAT 97
--- NOTE | 2017-09-10 04:54 | NURSING ---
Patient up and walking in hallway at this time.
[2017-09-10 05:26] VITALS: BP 134/73; PULSE 72; RESP 18; TEMP 36.8; O2SAT 94
[2017-09-10 05:48] LABS: Absolute Lymphocyte Count 0.89 X10^3/ul (0.83-4.51); Absolute Neutrophil Count 1.3 X10^3/uL (2.0-7.7); Basophil# 0.01 X10^3/uL; Basophil% 0.3 % (0-1); Eosinophil# 0.07 X10^3/uL; Eosinophils% 2.3 % (0-5); Hematocrit 37.5 % (40-54); Hemoglobin 12.9 g/dl (13.0-16.5); Lymphocyte # 0.89 X10^3/ul (4.0); Lymphocyte % 28.8 % (19-41); Mean Corp Hgb Conc 34.4 g/gl (32-36); Mean Corpuscular Hgb 29.9 pg (27.0-32.0); Mean Corpuscular Volume 86.8 fL (80-94); Mean Platelet Vol. 9.6 fl (6.2-12.0); Monocyte# 0.84 X10^3/uL; Monocyte% 27.2 % (0-10); Neutrophil # 1.28 X10^3/uL (2.7-7.7); Neutrophil % 41.4 % (47-70); Platelet Count 203 K/mm3 (150-450); RBC Distribution Width CV 12.9 % (11.6-14.6); RBC Distribution Width SD 41.7 fl (35.1-43.9); Red Blood Count 4.32 M/mm3 (4.6-6.2); White Blood Count 3.1 K/mm3 (4.4-11.0)
[2017-09-10 05:50] LABS: POSITIVE COUNT NO; POSITIVE DIFFERENTIAL NO; POSITIVE MORPHOLOGY NO
[2017-09-10 06:12] LABS: ALB/GLOB Ratio 0.9 RATIO (0.9-2.4); AST(SGOT) 43 U/L (15-37); Alanine Aminotransfer ALT/SGPT 84 U/L (16-61); Albumin, Serum 3.1 g/dL (3.2-5.0); Alkaline Phosphatase 68 U/L (45-117); Anion Gap 10 (5-15); BUN 7 mg/dL (7-18); BUN/Creat Ratio 7.1 RATIO (10-20); Calcium,Total 8.3 mg/dL (8.5-10.1); Chloride 104 mmol/L (98-107); Creatinine, Serum 0.99 mg/dL (0.70-1.30); EST Glomerular Filtration Rate 86 mL/min (>60); Est Glom Filt Rate - Afr Amer 104 mL/min (>60); Estimated Creatinine Clearance 94.22 ml/min; Globulin 3.3 g/dL (2.2-4.2); Glucose 92 mg/dL (74-106); Potassium 3.2 mmol/L (3.5-5.1); Protein, Total 6.4 g/dL (6.4-8.2); Sodium Level 141 mmol/L (136-145)
[2017-09-10 07:20] VITALS: BP 139/87; PULSE 71; RESP 16; TEMP 37.3; O2SAT 97
[2017-09-10] MEDS: Ondansetron 4 MG/2 ML Vial IV ×4 (07:24→23:21)
[2017-09-10] MEDS: Morphine 4 MG/ML Syringe IV ×4 (07:25→23:21)
[2017-09-10] MEDS: 0.9% NaCl Peripheral Flush Adult/Peds IV ×2 (07:26→13:50)
--- NOTE | 2017-09-10 10:39 | PCM.PN.HOSP ---
Patient Problems: Active and Suspected Problems Small bowel ileus (Acute) Subjective: Status post exploratory laparotomy for small bowel obstruction. Underwent lysis of adhesions. Patient had some worsening abdominal pain this morning but that seems to be doing well. Patient been up and ambulate in the hallways. Has had little flatus and small amount of bowel movement. Patient has exceeded his usage of Toradol and is concerned about the gastric slowing associated with narcotics. Vitals/I&O's: Vital Signs Temp Pulse Resp BP Pulse Ox 37.3 C 71 16 139/87 H 97 09/10/17 07:20 09/10/17 07:20 09/10/17 07:20 09/10/17 07:20 09/10/17 07:20 Oxygen Flow Rate (L/min) 2 Oxygen Delivery Method Room Air Weight: 89.9 kg Body Mass Index (BMI) 28.4 Intake and Output for Last 24 Hours 09/08/17 09/09/17 09/10/17 23:59 23:59 23:59 Intake Total 2763 / 2763 5026 / 5026 764 / 764 Output Total 1275 / 1275 2100 / 2100 325 / 325 Balance 1488 / 1488 2926 / 2926 439 / 439 General: Alert, No apparent distress HEENT: Atraumatic, Normocephalic Neck: No Nodes, Thyroid Normal Size and Texture Lungs: Clear to auscultation, Normal air movement, No rhonchi, No wheeze Cardiovascular: Regular rate, Regular Rhythm, Normal S1, Normal S2, No murmurs Abdomen: Non Tender, Hypoactive Bowel Sounds, Distended Extremities: No edema, No Calf Tenderness Psych/Mental Status: Normal Affect, Appropriate Laboratory Results 09/10/17 05:15: WBC 3.1 L, RBC 4.32 L, Hgb 12.9 L, Hct 37.5 L, MCV 86.8, MCH 29.9, MCHC 34.4, RDW 12.9, RDW Differential 41.7, Plt Count 203, MPV 9.6, Immature Gran % (Auto) 0.000, Neut % (Auto) 41.4 L, Lymph % (Auto) 28.8, [place] % (Auto) 27.2 H, Eos % (Auto) 2.3, Baso % (Auto) 0.3, Absolute Neuts (auto) 1.3 L, Absolute Lymphs (auto) 0.89, Total Counted Not Reportable 09/10/17 05:15: Sodium 141, Potassium 3.2 L, Chloride 104, Carbon Dioxide 27.0, Anion Gap 10, BUN 7, Creatinine 0.99, Estim Creat Clear Calc 94.22, Est GFR (MDRD) Af Amer 104, Est GFR (MDRD) Non-Af 86, BUN/Creatinine Ratio 7.1 L, Glucose 92, Calcium 8.3 L, Total Bilirubin 1.60 H, AST 43 H, ALT 84 H, Alkaline Phosphatase 68, Total Protein 6.4, Albumin 3.1 L, Globulin 3.3, Albumin/Globulin Ratio 0.9 Current Medications Enoxaparin Sodium (Lovenox) 40 mg SC DAILY [facility] Last Admin: 09/09/17 09:31 Dose: 40 mg Dextrose/Sodium Chloride () 1,000 mls @ 150 mls/hr IV .Q6H40M [facility] Last Admin: 09/10/17 07:26 Dose: 150 mls/hr Lidocaine HCl (Xylocaine Viscous) 5 ml PO Q4H PRN PRN PRN Reason: throat pain/irritation Last Admin: 09/05/17 00:35 Dose: 5 ml Magnesium Hydroxide (Milk Of Magnesia) 30 ml PO DAILY PRN PRN PRN Reason: Constipation Morphine Sulfate () 4 - 6 mg IV Q4H PRN PRN PRN Reason: SEVERE PAIN (6-10/10) Last Admin: 09/10/17 07:25 Dose: 4 mg Ondansetron HCl (Zofran) 4 mg IV Q4H PRN PRN PRN Reason: NAUSEA Last Admin: 09/10/17 07:24 Dose: 4 mg Pantoprazole Sodium (Protonix) 40 mg PO BID [facility] Last Admin: 09/09/17 22:11 Dose: 40 mg Promethazine HCl (Phenergan) 12.5 mg IV Q6H PRN PRN PRN Reason: NAUSEA/VOMITING Sodium Chloride () 5 - 30 ml IV UD PRN PRN Reason: SALINE FLUSH Last Admin: 09/10/17 07:26 Dose: 10 ml Medical Necessity - Tobacco Use Smoking Status: Never smoker Assessment/Plan All Active Problems Small bowel ileus (Acute) 1. Small bowel obstruction Status post exploratory laparotomy with lysis of adhesions on 6/26 Currently n.p.o. Advance diet per instructions by general surgery 2. GERD Resume oral PPI once patient able to take oral 3. DVT proph: LMWH Code Visit Inpatient E&M: 12103 Subs Hosp L2
--- NOTE | 2017-09-10 10:42 | PN_ITS ---
Patient Problems: Active and Suspected Problems Small bowel ileus (Acute) Subjective: Status post exploratory laparotomy for small bowel obstruction. Underwent lysis of adhesions. Patient had some worsening abdominal pain this morning but that seems to be doing well. Patient been up and ambulate in the hallways. Has had little flatus and small amount of bowel movement. Patient has exceeded his usage of Toradol and is concerned about the gastric slowing associated with narcotics. Vitals/I&O's: Vital Signs Temp Pulse Resp BP Pulse Ox 37.3 C 71 16 139/87 H 97 09/10/17 07:20 09/10/17 07:20 09/10/17 07:20 09/10/17 07:20 09/10/17 07:20 Oxygen Flow Rate (L/min) 2 Oxygen Delivery Method Room Air Weight: 89.9 kg Body Mass Index (BMI) 28.4 Intake and Output for Last 24 Hours 09/08/17 09/09/17 09/10/17 23:59 23:59 23:59 Intake Total 2763 / 2763 5026 / 5026 764 / 764 Output Total 1275 / 1275 2100 / 2100 325 / 325 Balance 1488 / 1488 2926 / 2926 439 / 439 General: Alert, No apparent distress HEENT: Atraumatic, Normocephalic Neck: No Nodes, Thyroid Normal Size and Texture Lungs: Clear to auscultation, Normal air movement, No rhonchi, No wheeze Cardiovascular: Regular rate, Regular Rhythm, Normal S1, Normal S2, No murmurs Abdomen: Non Tender, Hypoactive Bowel Sounds, Distended Extremities: No edema, No Calf Tenderness Psych/Mental Status: Normal Affect, Appropriate Laboratory Results 09/10/17 05:15: WBC 3.1 L, RBC 4.32 L, Hgb 12.9 L, Hct 37.5 L, MCV 86.8, MCH 29.9, MCHC 34.4, RDW 12.9, RDW Differential 41.7, Plt Count 203, MPV 9.6, Immature Gran % (Auto) 0.000, Neut % (Auto) 41.4 L, Lymph % (Auto) 28.8, [place] % (Auto) 27.2 H, Eos % (Auto) 2.3, Baso % (Auto) 0.3, Absolute Neuts (auto) 1.3 L , Absolute Lymphs (auto) 0.89, Total Counted Not Reportable 09/10/17 05:15: Sodium 141, Potassium 3.2 L, Chloride 104, Carbon Dioxide 27.0, Anion Gap 10, BUN 7, Creatinine 0.99, Estim Creat Clear Calc 94.22, Est GFR ( MDRD) Af Amer 104, Est GFR (MDRD) Non-Af 86, BUN/Creatinine Ratio 7.1 L, Glucose 92, Calcium 8.3 L, Total Bilirubin 1.60 H, AST 43 H, ALT 84 H, Alkaline Phosphatase 68, Total Protein 6.4, Albumin 3.1 L, Globulin 3.3, Albumin/ Globulin Ratio 0.9 Current Medications Enoxaparin Sodium (Lovenox) 40 mg SC DAILY [facility] Last Admin: 09/09/17 09:31 Dose: 40 mg Dextrose/Sodium Chloride () 1,000 mls @ 150 mls/hr IV .Q6H40M [facility] Last Admin: 09/10/17 07:26 Dose: 150 mls/hr Lidocaine HCl (Xylocaine Viscous) 5 ml PO Q4H PRN PRN PRN Reason: throat pain/irritation Last Admin: 09/05/17 00:35 Dose: 5 ml Magnesium Hydroxide (Milk Of Magnesia) 30 ml PO DAILY PRN PRN PRN Reason: Constipation Morphine Sulfate () 4 - 6 mg IV Q4H PRN PRN PRN Reason: SEVERE PAIN (6-10/10) Last Admin: 09/10/17 07:25 Dose: 4 mg Ondansetron HCl (Zofran) 4 mg IV Q4H PRN PRN PRN Reason: NAUSEA Last Admin: 09/10/17 07:24 Dose: 4 mg Pantoprazole Sodium (Protonix) 40 mg PO BID [facility] Last Admin: 09/09/17 22:11 Dose: 40 mg Promethazine HCl (Phenergan) 12.5 mg IV Q6H PRN PRN PRN Reason: NAUSEA/VOMITING Sodium Chloride () 5 - 30 ml IV UD PRN PRN Reason: SALINE FLUSH Last Admin: 09/10/17 07:26 Dose: 10 ml Medical Necessity - Tobacco Use Smoking Status: Never smoker Assessment/Plan All Active Problems Small bowel ileus (Acute) 1. Small bowel obstruction * Status post exploratory laparotomy with lysis of adhesions on 09/09 * Currently n.p.o. * Advance diet per instructions by general surgery 2. GERD * Resume oral PPI once patient able to take oral 3. DVT proph: * LMWH Code Visit Inpatient E&M: 17919 Subs Hosp L2
[2017-09-10] MEDS: Enoxaparin 40 MG/0.4 ML Syringe SC (10:46)
[2017-09-10] MEDS: Pantoprazole Sodium 40 MG Tablet PO ×2 (10:46→21:08)
--- NOTE | 2017-09-10 11:11 | PCM.PN.SRG ---
Patient Problems: Active and Suspected Problems Small bowel ileus (Acute) Subjective: minimal flatus - Physical Exam General: Alert, Oriented x3, Cooperative Lungs: Clear to auscultation, Normal air movement Cardiovascular: Regular rate, No murmurs Abdomen: Bowel Sounds Present, Soft, Hypoactive Bowel Sounds Vital Signs Temp Pulse Resp BP Pulse Ox 99.1 F 71 16 139/87 H 97 09/10/17 07:20 09/10/17 07:20 09/10/17 07:20 09/10/17 07:20 09/10/17 07:20 Oxygen Flow Rate (L/min) 2 Oxygen Delivery Method Room Air Weight: 89.9 kg Body Mass Index (BMI) 28.4 Intake and Output for Last 24 Hours 09/08/17 09/09/17 09/10/17 23:59 23:59 23:59 Intake Total 2763 / 2763 5026 / 5026 764 / 764 Output Total 1275 / 1275 2100 / 2100 325 / 325 Balance 1488 / 1488 2926 / 2926 439 / 439 Laboratory Tests Past 24 Hrs 09/10/17 09/10/17 05:15 05:15 WBC 3.1 L RBC 4.32 L Hgb 12.9 L Hct 37.5 L MCV 86.8 MCH 29.9 MCHC 34.4 RDW 12.9 RDW Differential 41.7 Plt Count 203 MPV 9.6 Immature Gran % (Auto) 0.000 Neut % (Auto) 41.4 L Lymph % (Auto) 28.8 [place] % (Auto) 27.2 H Eos % (Auto) 2.3 Baso % (Auto) 0.3 Absolute Neuts (auto) 1.3 L Absolute Lymphs (auto) 0.89 Total Counted Not Reportable Sodium 141 Potassium 3.2 L Chloride 104 Carbon Dioxide 27.0 Anion Gap 10 BUN 7 Creatinine 0.99 Estim Creat Clear Calc 94.22 Est GFR (MDRD) Af Amer 104 Est GFR (MDRD) Non-Af 86 BUN/Creatinine Ratio 7.1 L Glucose 92 Calcium 8.3 L Total Bilirubin 1.60 H AST 43 H ALT 84 H Alkaline Phosphatase 68 Total Protein 6.4 Albumin 3.1 L Globulin 3.3 Albumin/Globulin Ratio 0.9 Medical Necessity - Tobacco Use Smoking Status: Never smoker Assessment/Plan All Active Problems Small bowel ileus (Acute) POD # 1 s/p laparoscopic lysis of adhesions for distal high grade partial SBO WIll encourage ambulation and chewing gun. sips and chips until return of bowel function.
[2017-09-10 13:54] VITALS: BP 146/90; PULSE 76; RESP 18; TEMP 37.2; O2SAT 99
[2017-09-10 20:00] VITALS: BP 157/99; PULSE 69; RESP 16; TEMP 36.6; O2SAT 97
[2017-09-11 03:00] VITALS: BP 126/79; PULSE 67; RESP 16; TEMP 37; O2SAT 93
[2017-09-11] MEDS: Dext 5%-0.45% NS 1,000 ML 150 ML IV ×3 (03:06→19:40)
[2017-09-11] MEDS: Ondansetron 4 MG/2 ML Vial IV ×2 (03:54→22:10)
--- NOTE | 2017-09-11 04:59 | RAD_ITS ---
STUDY: X-RAY - ABDOMEN/PELVIS REASON FOR EXAM: Male, 47 years old. Increased bloating and abdominal cramping and past couple of hours. TECHNIQUE: AP supine and upright views of the abdomen and pelvis. COMPARISON: 09/09/2017, CT abdomen pelvis contrast enhanced, and abdominal series. FINDINGS: Normal visualized lung bases. There is contrast seen within the colon. There is continued air distention of small bowel with air-fluid levels. There is no demonstrated free abdominal air. The visualized liver, spleen and kidneys are grossly normal in size and morphology. Normal soft tissue structures. Normal visualized osseous structures. RAD/Abd Inc Decub and/or Erect IMPRESSION: No significant change off small bowel air distention with air fluid level, contrast within the colon. Suspect no significant change of incomplete small bowel obstruction. Electronically Signed: Gaby Mauricio MD at 5:56 EDT , Service support ,
[2017-09-11 06:50] LABS: Hematocrit 37.2 % (40-54); Hemoglobin 12.6 g/dl (13.0-16.5); Mean Corp Hgb Conc 33.9 g/gl (32-36); Mean Corpuscular Volume 88.6 fL (80-94); Mean Platelet Vol. 9.6 fl (6.2-12.0); Platelet Count 192 K/mm3 (150-450); RBC Distribution Width CV 13.1 % (11.6-14.6); RBC Distribution Width SD 42.3 fl (35.1-43.9); White Blood Count 4.3 K/mm3 (4.4-11.0)
[2017-09-11 06:51] LABS: Scan Indicated on CBC? Y/N NO
[2017-09-11 07:06] LABS: Anion Gap 10 (5-15); BUN 5 mg/dL (7-18); BUN/Creat Ratio 5.6 RATIO (10-20); Calcium,Total 8.3 mg/dL (8.5-10.1); Chloride 104 mmol/L (98-107); Creatinine, Serum 0.89 mg/dL (0.70-1.30); EST Glomerular Filtration Rate 98 mL/min (>60); Est Glom Filt Rate - Afr Amer 118 mL/min (>60); Estimated Creatinine Clearance 104.81 ml/min; Glucose 108 mg/dL (74-106); Potassium 3.1 mmol/L (3.5-5.1); Sodium Level 140 mmol/L (136-145)
[2017-09-11 09:15] VITALS: BP 136/87; PULSE 64; RESP 16; TEMP 37; O2SAT 98
--- NOTE | 2017-09-11 09:54 | PCM.PN.HOSP ---
Patient Problems: Active and Suspected Problems Small bowel ileus (Acute) Subjective: had some increased abdominal pain around 0300. Increased abdominal distention. Vitals/I&O's: Vital Signs Temp Pulse Resp BP Pulse Ox 37.0 C 64 16 136/87 H 98 09/11/17 09:15 09/11/17 09:15 09/11/17 09:15 09/11/17 09:15 09/11/17 09:15 Oxygen Flow Rate (L/min) 2 Oxygen Delivery Method Room Air Weight: 89.9 kg Body Mass Index (BMI) 28.4 Intake and Output for Last 24 Hours 09/09/17 09/10/17 09/11/17 23:59 23:59 23:59 Intake Total 5026 / 5026 3686 / 3686 1124 / 1124 Output Total 2100 / 2100 3100 / 3100 500 / 500 Balance 2926 / 2926 586 / 586 624 / 624 General: Alert, No apparent distress HEENT: Atraumatic, Normocephalic Oral: Moist Mucosa, No Gingival or Mucosal Lesions/ Ulcerations Neck: No Nodes, Thyroid Normal Size and Texture Lungs: Clear to auscultation, Normal air movement, No rhonchi, No wheeze Cardiovascular: Regular rate, Regular Rhythm, Normal S1, Normal S2 Abdomen: Hypoactive Bowel Sounds, Distended, Tender Extremities: No edema, No Calf Tenderness Skin: No rashes, No breakdown Psych/Mental Status: Normal Affect, Appropriate Laboratory Results 09/11/17 06:26: WBC 4.3 L, RBC 4.20 L, Hgb 12.6 L, Hct 37.2 L, MCV 88.6, MCH 30.0, MCHC 33.9, RDW 13.1, RDW Differential 42.3, Plt Count 192, MPV 9.6 09/11/17 06:26: Sodium 140, Potassium 3.1 L, Chloride 104, Carbon Dioxide 26.0, Anion Gap 10, BUN 5 L, Creatinine 0.89, Estim Creat Clear Calc 104.81, Est GFR (MDRD) Af Amer 118, Est GFR (MDRD) Non-Af 98, BUN/Creatinine Ratio 5.6 L, Glucose 108 H, Calcium 8.3 L Current Medications Enoxaparin Sodium (Lovenox) 40 mg SC DAILY [facility] Last Admin: 09/10/17 10:46 Dose: 40 mg Dextrose/Sodium Chloride () 1,000 mls @ 150 mls/hr IV .Q6H40M [facility] Last Admin: 09/11/17 03:06 Dose: 150 mls/hr Lidocaine HCl (Xylocaine Viscous) 5 ml PO Q4H PRN PRN PRN Reason: throat pain/irritation Last Admin: 09/05/17 00:35 Dose: 5 ml Magnesium Hydroxide (Milk Of Magnesia) 30 ml PO DAILY PRN PRN PRN Reason: Constipation Morphine Sulfate () 4 - 6 mg IV Q4H PRN PRN PRN Reason: SEVERE PAIN (6-10/10) Last Admin: 09/10/17 23:21 Dose: 4 mg Ondansetron HCl (Zofran) 4 mg IV Q4H PRN PRN PRN Reason: NAUSEA Last Admin: 09/11/17 03:54 Dose: 4 mg Pantoprazole Sodium (Protonix) 40 mg PO BID [facility] Last Admin: 09/10/17 21:08 Dose: 40 mg Promethazine HCl (Phenergan) 12.5 mg IV Q6H PRN PRN PRN Reason: NAUSEA/VOMITING Sodium Chloride () 5 - 30 ml IV UD PRN PRN Reason: SALINE FLUSH Last Admin: 09/10/17 13:50 Dose: 10 ml Medical Necessity - Tobacco Use Smoking Status: Never smoker Assessment/Plan All Active Problems Small bowel ileus (Acute) 1. Small bowel obstruction Status post exploratory laparotomy with lysis of adhesions on 09/09 Currently n.p.o. Advance diet per instructions by general surgery AXR still shows obstruction with air-fluid levels continue to encourage ambulation consider reglan if no improvement 2. GERD Resume oral PPI once patient able to take oral 3. DVT proph: LMWH Code Visit Inpatient E&M: 68269 Subs Hosp L2
--- NOTE | 2017-09-11 09:57 | PN_ITS ---
Patient Problems: Active and Suspected Problems Small bowel ileus (Acute) Subjective: had some increased abdominal pain around 0300. Increased abdominal distention. Vitals/I&O's: Vital Signs Temp Pulse Resp BP Pulse Ox 37.0 C 64 16 136/87 H 98 09/11/17 09:15 09/11/17 09:15 09/11/17 09:15 09/11/17 09:15 09/11/17 09:15 Oxygen Flow Rate (L/min) 2 Oxygen Delivery Method Room Air Weight: 89.9 kg Body Mass Index (BMI) 28.4 Intake and Output for Last 24 Hours 09/09/17 09/10/17 09/11/17 23:59 23:59 23:59 Intake Total 5026 / 5026 3686 / 3686 1124 / 1124 Output Total 2100 / 2100 3100 / 3100 500 / 500 Balance 2926 / 2926 586 / 586 624 / 624 General: Alert, No apparent distress HEENT: Atraumatic, Normocephalic Oral: Moist Mucosa, No Gingival or Mucosal Lesions/ Ulcerations Neck: No Nodes, Thyroid Normal Size and Texture Lungs: Clear to auscultation, Normal air movement, No rhonchi, No wheeze Cardiovascular: Regular rate, Regular Rhythm, Normal S1, Normal S2 Abdomen: Hypoactive Bowel Sounds, Distended, Tender Extremities: No edema, No Calf Tenderness Skin: No rashes, No breakdown Psych/Mental Status: Normal Affect, Appropriate Laboratory Results 09/11/17 06:26: WBC 4.3 L, RBC 4.20 L, Hgb 12.6 L, Hct 37.2 L, MCV 88.6, MCH 30.0, MCHC 33.9, RDW 13.1, RDW Differential 42.3, Plt Count 192, MPV 9.6 09/11/17 06:26: Sodium 140, Potassium 3.1 L, Chloride 104, Carbon Dioxide 26.0, Anion Gap 10, BUN 5 L, Creatinine 0.89, Estim Creat Clear Calc 104.81, Est GFR ( MDRD) Af Amer 118, Est GFR (MDRD) Non-Af 98, BUN/Creatinine Ratio 5.6 L, Glucose 108 H, Calcium 8.3 L Current Medications Enoxaparin Sodium (Lovenox) 40 mg SC DAILY [facility] Last Admin: 09/10/17 10:46 Dose: 40 mg Dextrose/Sodium Chloride () 1,000 mls @ 150 mls/hr IV .Q6H40M [facility] Last Admin: 09/11/17 03:06 Dose: 150 mls/hr Lidocaine HCl (Xylocaine Viscous) 5 ml PO Q4H PRN PRN PRN Reason: throat pain/irritation Last Admin: 09/05/17 00:35 Dose: 5 ml Magnesium Hydroxide (Milk Of Magnesia) 30 ml PO DAILY PRN PRN PRN Reason: Constipation Morphine Sulfate () 4 - 6 mg IV Q4H PRN PRN PRN Reason: SEVERE PAIN (6-10/10) Last Admin: 09/10/17 23:21 Dose: 4 mg Ondansetron HCl (Zofran) 4 mg IV Q4H PRN PRN PRN Reason: NAUSEA Last Admin: 09/11/17 03:54 Dose: 4 mg Pantoprazole Sodium (Protonix) 40 mg PO BID [facility] Last Admin: 09/10/17 21:08 Dose: 40 mg Promethazine HCl (Phenergan) 12.5 mg IV Q6H PRN PRN PRN Reason: NAUSEA/VOMITING Sodium Chloride () 5 - 30 ml IV UD PRN PRN Reason: SALINE FLUSH Last Admin: 09/10/17 13:50 Dose: 10 ml Medical Necessity - Tobacco Use Smoking Status: Never smoker Assessment/Plan All Active Problems Small bowel ileus (Acute) 1. Small bowel obstruction * Status post exploratory laparotomy with lysis of adhesions on 09/09 * Currently n.p.o. * Advance diet per instructions by general surgery * AXR still shows obstruction with air-fluid levels * continue to encourage ambulation * consider reglan if no improvement 2. GERD * Resume oral PPI once patient able to take oral 3. DVT proph: * LMWH Code Visit Inpatient E&M: 08523 Subs Hosp L2
[2017-09-11] MEDS: Pantoprazole Sodium 40 MG Tablet PO ×2 (10:32→21:31)
[2017-09-11] MEDS: Enoxaparin 40 MG/0.4 ML Syringe SC (10:32)
[2017-09-11] MEDS: 0.9% NaCl IVPB Med Flush (250 mL) 15 ML IV (13:08)
[2017-09-11 14:53] VITALS: BP 142/85; PULSE 63; RESP 16; TEMP 36.8; O2SAT 96
[2017-09-11 20:32] VITALS: BP 144/74; PULSE 67; RESP 16; TEMP 37.3; O2SAT 93
--- NOTE | 2017-09-11 20:40 | PCM.PN.SRG ---
Patient Problems: Active and Suspected Problems Small bowel ileus (Acute) Subjective: vomited over night, cramping - Physical Exam General: Alert, Oriented x3 Lungs: Clear to auscultation, Normal air movement Cardiovascular: Regular rate, Regular Rhythm Abdomen: Bowel Sounds Present, Soft, Hypoactive Bowel Sounds - very few, Tender - at incisions Vital Signs Temp Pulse Resp BP Pulse Ox 99.1 F 67 16 144/74 H 93 09/11/17 20:32 09/11/17 20:32 09/11/17 20:32 09/11/17 20:32 09/11/17 20:32 Oxygen Flow Rate (L/min) 2 Oxygen Delivery Method Room Air Weight: 89.9 kg Body Mass Index (BMI) 28.4 Intake and Output for Last 24 Hours 09/09/17 09/10/17 09/11/17 23:59 23:59 23:59 Intake Total 5026 / 5026 3686 / 3686 1784 / 1784 Output Total 2100 / 2100 3100 / 3100 2450 / 2450 Balance 2926 / 2926 586 / 586 -666 / -666 Laboratory Tests Past 24 Hrs 09/11/17 09/11/17 06:26 06:26 WBC 4.3 L RBC 4.20 L Hgb 12.6 L Hct 37.2 L MCV 88.6 MCH 30.0 MCHC 33.9 RDW 13.1 RDW Differential 42.3 Plt Count 192 MPV 9.6 Sodium 140 Potassium 3.1 L Chloride 104 Carbon Dioxide 26.0 Anion Gap 10 BUN 5 L Creatinine 0.89 Estim Creat Clear Calc 104.81 Est GFR (MDRD) Af Amer 118 Est GFR (MDRD) Non-Af 98 BUN/Creatinine Ratio 5.6 L Glucose 108 H Calcium 8.3 L Medical Necessity - Tobacco Use Smoking Status: Never smoker Assessment/Plan All Active Problems Small bowel ileus (Acute) POD # 2 s/p laparoscopic lysis of adhesions for distal high grade partial SBO vomited overnight. KUB demonstrates suspected postoperative ileus picture, laboratory studies unremarkable. Will encourage ambulation and chewing gun. sips and chips until return of bowel function. discussed today whether starting TPN would be appropriate given his prolonged nothing by mouth status. My personal opinion is an otherwise healthy individual TPN has more risks of complications then potential benefits. nonetheless have agreed to have PICC line placed so that if this doesn't be more prolonged ileus, we could transitioned to TPN. This will also make blood draws more easily obtained.
[2017-09-12] MEDS: Dext 5%-0.45% NS 1,000 ML 150 ML IV ×3 (02:26→17:26)
[2017-09-12 02:28] VITALS: BP 134/84; PULSE 63; RESP 18; TEMP 36.3; O2SAT 95
[2017-09-12 05:00] LABS: Absolute Lymphocyte Count 0.81 X10^3/ul (0.83-4.51); Absolute Neutrophil Count 2.6 X10^3/uL (2.0-7.7); Basophil# 0.01 X10^3/uL; Basophil% 0.2 % (0-1); Eosinophil# 0.12 X10^3/uL; Eosinophils% 2.9 % (0-5); Hemoglobin 12.1 g/dl (13.0-16.5); Lymphocyte # 0.81 X10^3/ul (4.0); Lymphocyte % 19.2 % (19-41); Mean Corp Hgb Conc 34.6 g/gl (32-36); Mean Corpuscular Volume 86.6 fL (80-94); Mean Platelet Vol. 9.1 fl (6.2-12.0); Monocyte# 0.67 X10^3/uL; Monocyte% 15.9 % (0-10); Neutrophil # 2.59 X10^3/uL (2.7-7.7); Neutrophil % 61.6 % (47-70); Platelet Count 198 K/mm3 (150-450); RBC Distribution Width CV 12.9 % (11.6-14.6); Red Blood Count 4.04 M/mm3 (4.6-6.2); White Blood Count 4.2 K/mm3 (4.4-11.0)
[2017-09-12 05:03] LABS: POSITIVE COUNT NO; POSITIVE DIFFERENTIAL NO; POSITIVE MORPHOLOGY NO
[2017-09-12 05:07] LABS: Anion Gap 5 (5-15); BUN 4 mg/dL (7-18); BUN/Creat Ratio 5.2 RATIO (10-20); Chloride 107 mmol/L (98-107); Creatinine, Serum 0.78 mg/dL (0.70-1.30); EST Glomerular Filtration Rate 114 mL/min (>60); Est Glom Filt Rate - Afr Amer 137 mL/min (>60); Estimated Creatinine Clearance 119.59 ml/min; Glucose 115 mg/dL (74-106); Magnesium 1.9 mg/dL (1.6-2.6); Potassium 3.3 mmol/L (3.5-5.1); Sodium Level 141 mmol/L (136-145)
--- NOTE | 2017-09-12 06:11 | PN.SURG_ITS ---
Patient Problems: Active and Suspected Problems Small bowel ileus (Acute) Subjective: still no flatus - Physical Exam General: Alert, Oriented x3, Cooperative Neck: Supple, No JVD, Negative Carotid Bruits Lungs: Clear to auscultation, Normal air movement Cardiovascular: Regular rate, Regular Rhythm Abdomen: Soft, Non Tender, Hypoactive Bowel Sounds, Distended - mildly Vital Signs Temp Pulse Resp BP Pulse Ox 97.4 F L 63 18 134/84 H 95 09/12/17 02:28 09/12/17 02:28 09/12/17 02:09/12/17 02:09/12/17 02:28 Oxygen Flow Rate (L/min) 2 Oxygen Delivery Method Room Air Weight: 89.9 kg Body Mass Index (BMI) 28.4 Intake and Output for Last 24 Hours 09/10/17 09/11/17 09/12/17 23:59 23:59 23:59 Intake Total 3686 / 3686 3037 / 3037 Output Total 3100 / 3100 3450 / 3450 Balance 586 / 586 -413 / -413 Laboratory Tests Past 24 Hrs 09/11/17 09/11/17 09/12/17 06:26 06:26 04:43 WBC 4.3 L 4.2 L RBC 4.20 L 4.04 L Hgb 12.6 L 12.1 L Hct 37.2 L 35.0 L MCV 88.6 86.6 MCH 30.0 30.0 MCHC 33.9 34.6 RDW 13.1 12.9 RDW Differential 42.3 41.0 Plt Count 192 198 MPV 9.6 9.1 Immature Gran % (Auto) 0.200 Neut % (Auto) 61.6 Lymph % (Auto) 19.2 [place] % (Auto) 15.9 H Eos % (Auto) 2.9 Baso % (Auto) 0.2 Absolute Neuts (auto) 2.6 Absolute Lymphs (auto) 0.81 L Total Counted Not Reportable Sodium 140 Potassium 3.1 L Chloride 104 Carbon Dioxide 26.0 Anion Gap 10 BUN 5 L Creatinine 0.89 Estim Creat Clear Calc 104.81 Est GFR (MDRD) Af Amer 118 Est GFR (MDRD) Non-Af 98 BUN/Creatinine Ratio 5.6 L Glucose 108 H Calcium 8.3 L Magnesium 06/29/18 04:43 WBC RBC Hgb Hct MCV MCH MCHC RDW RDW Differential Plt Count MPV Immature Gran % (Auto) Neut % (Auto) Lymph % (Auto) [place] % (Auto) Eos % (Auto) Baso % (Auto) Absolute Neuts (auto) Absolute Lymphs (auto) Total Counted Sodium 141 Potassium 3.3 L Chloride 107 Carbon Dioxide 29.0 Anion Gap 5 BUN 4 L Creatinine 0.78 Estim Creat Clear Calc 119.59 Est GFR (MDRD) Af Amer 137 Est GFR (MDRD) Non-Af 114 BUN/Creatinine Ratio 5.2 L Glucose 115 H Calcium 8.0 L Magnesium 1.9 Medical Necessity - Tobacco Use Smoking Status: Never smoker Assessment/Plan All Active Problems Small bowel ileus (Acute) POD # 3 s/p laparoscopic lysis of adhesions for distal high grade partial SBO KUB yesterday demonstrates postoperative ileus picture, laboratory studies unremarkable. Will encourage ambulation and chewing gun. sips and chips until return of bowel function. discussed today whether starting TPN would be appropriate given his prolonged nothing by mouth status. My personal opinion is an otherwise healthy individual TPN has more risks of complications then potential benefits. nonetheless have agreed to have PICC line placed so that if this doesn't be more prolonged ileus, we could transitioned to TPN. This will also make blood draws more easily obtained.
[2017-09-12 08:35] VITALS: BP 136/80; PULSE 65; RESP 16; TEMP 37.2; O2SAT 94
[2017-09-12] MEDS: 0.9% NaCl Peripheral Flush Adult/Peds IV ×2 (09:55→17:24)
[2017-09-12] MEDS: Metoclopramide 10 MG/2 ML Vial IV ×2 (09:56→17:24)
[2017-09-12] MEDS: Enoxaparin 40 MG/0.4 ML Syringe SC (09:56)
[2017-09-12] MEDS: Pantoprazole Sodium 40 MG Tablet PO ×2 (09:56→22:37)
--- NOTE | 2017-09-12 10:21 | PN_ITS ---
Patient Problems: Active and Suspected Problems Small bowel ileus (Acute) Subjective: No flatus. Still with abdominal pain. Vitals/I&O's: Vital Signs Temp Pulse Resp BP Pulse Ox 37.2 C 65 16 136/80 H 94 09/12/17 08:35 09/12/17 08:35 09/12/17 08:35 09/12/17 08:35 09/12/17 08:35 Oxygen Flow Rate (L/min) 2 Oxygen Delivery Method Room Air Weight: 89.9 kg Body Mass Index (BMI) 28.4 Intake and Output for Last 24 Hours 09/10/17 09/11/17 09/12/17 23:59 23:59 23:59 Intake Total 3686 / 3686 3037 / 3037 1100 / 1100 Output Total 3100 / 3100 3450 / 3450 1775 / 1775 Balance 586 / 586 -413 / -413 -675 / -675 General: Alert HEENT: Atraumatic, Normocephalic Oral: Moist Mucosa Neck: No Nodes, Thyroid Normal Size and Texture Lungs: Clear to auscultation, Normal air movement, No rhonchi, No wheeze Cardiovascular: Regular rate, Regular Rhythm, Normal S1, Normal S2, No murmurs Abdomen: Hypoactive Bowel Sounds, Tender, - - less distended today. Extremities: No edema, No Calf Tenderness Psych/Mental Status: Normal Affect, Appropriate Laboratory Results 09/12/17 04:43: WBC 4.2 L, RBC 4.04 L, Hgb 12.1 L, Hct 35.0 L, MCV 86.6, MCH 30.0, MCHC 34.6, RDW 12.9, RDW Differential 41.0, Plt Count 198, MPV 9.1, Immature Gran % (Auto) 0.200, Neut % (Auto) 61.6, Lymph % (Auto) 19.2, [place] % ( Auto) 15.9 H, Eos % (Auto) 2.9, Baso % (Auto) 0.2, Absolute Neuts (auto) 2.6, Absolute Lymphs (auto) 0.81 L, Total Counted Not Reportable 09/12/17 04:43: Sodium 141, Potassium 3.3 L, Chloride 107, Carbon Dioxide 29.0, Anion Gap 5, BUN 4 L, Creatinine 0.78, Estim Creat Clear Calc 119.59, Est GFR ( MDRD) Af Amer 137, Est GFR (MDRD) Non-Af 114, BUN/Creatinine Ratio 5.2 L, Glucose 115 H, Calcium 8.0 L, Magnesium 1.9 Current Medications Calcium Carbonate (Tums) 1,000 mg PO Q4H PRN PRN PRN Reason: HEARTBURN Enoxaparin Sodium (Lovenox) 40 mg SC DAILY [facility] Last Admin: 09/12/17 09:56 Dose: 40 mg Dextrose/Sodium Chloride () 1,000 mls @ 150 mls/hr IV .Q6H40M [facility] Last Admin: 09/12/17 09:55 Dose: 150 mls/hr Sodium Chloride () 250 mls @ 15 mls/hr IV .[id number] PRN PRN Reason: SALINE FLUSH Last Admin: 09/11/17 13:08 Dose: 15 mls/hr Lidocaine HCl (Xylocaine Viscous) 5 ml PO Q4H PRN PRN PRN Reason: throat pain/irritation Last Admin: 09/05/17 00:35 Dose: 5 ml Magnesium Hydroxide (Milk Of Magnesia) 30 ml PO DAILY PRN PRN PRN Reason: Constipation Metoclopramide HCl (Reglan) 10 mg IV Q6 [facility] Last Admin: 09/12/17 09:56 Dose: 10 mg Morphine Sulfate () 4 - 6 mg IV Q4H PRN PRN PRN Reason: SEVERE PAIN (6-10/10) Last Admin: 09/10/17 23:21 Dose: 4 mg Ondansetron HCl (Zofran) 4 mg IV Q4H PRN PRN PRN Reason: NAUSEA Last Admin: 09/11/17 22:10 Dose: 4 mg Pantoprazole Sodium (Protonix) 40 mg PO BID [facility] Last Admin: 09/12/17 09:56 Dose: 40 mg Promethazine HCl (Phenergan) 12.5 mg IV Q6H PRN PRN PRN Reason: NAUSEA/VOMITING Sodium Chloride () 5 - 30 ml IV UD PRN PRN Reason: SALINE FLUSH Last Admin: 09/12/17 09:55 Dose: 10 ml Sodium Chloride () 10 ml IV UD PRN PRN Reason: PICC FLUSH Medical Necessity - Tobacco Use Smoking Status: Never smoker Assessment/Plan All Active Problems Small bowel ileus (Acute) 1. Small bowel obstruction * Status post exploratory laparotomy with lysis of adhesions on 09/09 * Currently n.p.o. * Advance diet per instructions by general surgery * AXR still shows obstruction with air-fluid levels * continue to encourage ambulation * consider reglan if no improvement 2. GERD * Resume oral PPI once patient able to take oral 3. DVT proph: * LMWH Code Visit Inpatient E&M: 24747 Subs Hosp L2
[2017-09-12 14:29] VITALS: BP 129/78; PULSE 67; RESP 16; TEMP 36.8; O2SAT 98
[2017-09-12 22:34] VITALS: BP 135/97; PULSE 65; RESP 18; TEMP 36.8; O2SAT 98
[2017-09-13] MEDS: Dext 5%-0.45% NS 1,000 ML 150 ML IV ×2 (00:15→06:58)
[2017-09-13] MEDS: Metoclopramide 10 MG/2 ML Vial IV ×2 (00:38→06:14)
[2017-09-13 03:00] VITALS: BP 129/74; PULSE 63; RESP 16; TEMP 37.1; O2SAT 94
[2017-09-13] MEDS: 0.9% NaCl Peripheral Flush Adult/Peds IV ×2 (06:14→18:42)
[2017-09-13 06:27] LABS: Absolute Lymphocyte Count 1.03 X10^3/ul (0.83-4.51); Absolute Neutrophil Count 3.2 X10^3/uL (2.0-7.7); Basophil# 0.01 X10^3/uL; Basophil% 0.2 % (0-1); Eosinophil# 0.08 X10^3/uL; Eosinophils% 1.6 % (0-5); Hematocrit 35.6 % (40-54); Hemoglobin 12.2 g/dl (13.0-16.5); Lymphocyte # 1.03 X10^3/ul (4.0); Lymphocyte % 20.7 % (19-41); Mean Corp Hgb Conc 34.3 g/gl (32-36); Mean Corpuscular Hgb 29.8 pg (27.0-32.0); Mean Corpuscular Volume 86.8 fL (80-94); Mean Platelet Vol. 9.4 fl (6.2-12.0); Monocyte# 0.69 X10^3/uL; Monocyte% 13.9 % (0-10); Neutrophil # 3.17 X10^3/uL (2.7-7.7); Neutrophil % 63.6 % (47-70); Platelet Count 214 K/mm3 (150-450); RBC Distribution Width SD 41.4 fl (35.1-43.9)
[2017-09-13 06:29] LABS: POSITIVE COUNT NO; POSITIVE DIFFERENTIAL NO; POSITIVE MORPHOLOGY NO
[2017-09-13 06:45] LABS: Anion Gap 7 (5-15); BUN 4 mg/dL (7-18); BUN/Creat Ratio 5.3 RATIO (10-20); Calcium,Total 8.2 mg/dL (8.5-10.1); Chloride 105 mmol/L (98-107); Creatinine, Serum 0.75 mg/dL (0.70-1.30); EST Glomerular Filtration Rate 118 mL/min (>60); Est Glom Filt Rate - Afr Amer 143 mL/min (>60); Estimated Creatinine Clearance 124.37 ml/min; Glucose 104 mg/dL (74-106); Potassium 3.1 mmol/L (3.5-5.1); Sodium Level 140 mmol/L (136-145)
--- NOTE | 2017-09-13 08:56 | PCM.PN.HOSP ---
Patient Problems: Active and Suspected Problems Small bowel ileus (Acute) Subjective: no flatus. abdominal discomfort unchanged. Vitals/I&O's: Vital Signs Temp Pulse Resp BP Pulse Ox 37.1 C 63 16 129/74 H 94 09/13/17 03:00 09/13/17 03:00 09/13/17 03:00 09/13/17 03:00 09/13/17 03:00 Oxygen Flow Rate (L/min) 2 Oxygen Delivery Method Room Air Weight: 89.9 kg Body Mass Index (BMI) 28.4 Intake and Output for Last 24 Hours 09/11/17 09/12/17 09/13/17 23:59 23:59 23:59 Intake Total 3037 / 3037 2212 / 2212 2441 / 2441 Output Total 3450 / 3450 2975 / 2975 1825 / 1825 Balance -413 / -413 -763 / -763 616 / 616 General: Alert, No apparent distress HEENT: Atraumatic, Normocephalic Oral: Moist Mucosa, No Gingival or Mucosal Lesions/ Ulcerations Neck: No Nodes, Thyroid Normal Size and Texture Lungs: Clear to auscultation, Normal air movement, No rhonchi, No wheeze Cardiovascular: Regular rate, Regular Rhythm, Normal S1, Normal S2, No murmurs Abdomen: Hypoactive Bowel Sounds, Distended, Tender Extremities: No edema, No Calf Tenderness Skin: No rashes, No breakdown Psych/Mental Status: Normal Affect, Appropriate Laboratory Results 09/13/17 06:00: WBC 5.0, RBC 4.10 L, Hgb 12.2 L, Hct 35.6 L, MCV 86.8, MCH 29.8, MCHC 34.3, RDW 13.0, RDW Differential 41.4, Plt Count 214, MPV 9.4, Immature Gran % (Auto) 0.000, Neut % (Auto) 63.6, Lymph % (Auto) 20.7, [place] % (Auto) 13.9 H, Eos % (Auto) 1.6, Baso % (Auto) 0.2, Absolute Neuts (auto) 3.2, Absolute Lymphs (auto) 1.03, Total Counted Not Reportable 09/13/17 06:00: Sodium 140, Potassium 3.1 L, Chloride 105, Carbon Dioxide 28.0, Anion Gap 7, BUN 4 L, Creatinine 0.75, Estim Creat Clear Calc 124.37, Est GFR (MDRD) Af Amer 143, Est GFR (MDRD) Non-Af 118, BUN/Creatinine Ratio 5.3 L, Glucose 104, Calcium 8.2 L Current Medications Calcium Carbonate (Tums) 1,000 mg PO Q4H PRN PRN PRN Reason: HEARTBURN Enoxaparin Sodium (Lovenox) 40 mg SC DAILY [facility] Last Admin: 09/12/17 09:56 Dose: 40 mg Dextrose/Sodium Chloride () 1,000 mls @ 150 mls/hr IV .Q6H40M [facility] Last Admin: 09/13/17 06:58 Dose: 150 mls/hr Sodium Chloride () 250 mls @ 15 mls/hr IV .[id number] PRN PRN Reason: SALINE FLUSH Last Admin: 09/11/17 13:08 Dose: 15 mls/hr Lidocaine HCl (Xylocaine Viscous) 5 ml PO Q4H PRN PRN PRN Reason: throat pain/irritation Last Admin: 09/05/17 00:35 Dose: 5 ml Magnesium Hydroxide (Milk Of Magnesia) 30 ml PO DAILY PRN PRN PRN Reason: Constipation Metoclopramide HCl (Reglan) 5 mg IV Q6 [facility] Ondansetron HCl (Zofran) 4 mg IV Q4H PRN PRN PRN Reason: NAUSEA Last Admin: 09/11/17 22:10 Dose: 4 mg Pantoprazole Sodium (Protonix) 40 mg PO BID [facility] Last Admin: 09/12/17 22:37 Dose: 40 mg Promethazine HCl (Phenergan) 12.5 mg IV Q6H PRN PRN PRN Reason: NAUSEA/VOMITING Sodium Chloride () 5 - 30 ml IV UD PRN PRN Reason: SALINE FLUSH Last Admin: 09/13/17 06:14 Dose: 30 ml Sodium Chloride () 10 ml IV UD PRN PRN Reason: PICC FLUSH Medical Necessity - Tobacco Use Smoking Status: Never smoker Assessment/Plan All Active Problems Small bowel ileus (Acute) 1. Small bowel obstruction Status post exploratory laparotomy with lysis of adhesions on 09/09 Currently n.p.o. Advance diet per instructions by general surgery AXR still shows obstruction with air-fluid levels continue to encourage ambulation had abdominal cramping with reglan that he qualified as quite severe. Will decrease reglan from 10 to 5 to see if he tolerates that better. Patient was in agreement. Patient has been admitted since the with the SBO, and had 2 days prior to that where he was having nausea and vomiting. Discussed risks (including bacterial AND fungal infections )and benefits of TPN. Patient in agreement to proceed. 2. GERD Resume oral PPI once patient able to take oral 3. DVT proph: LMWH Code Visit Inpatient E&M: 75578 Subs Hosp L2
--- NOTE | 2017-09-13 09:01 | PN_ITS ---
Patient Problems: Active and Suspected Problems Small bowel ileus (Acute) Subjective: no flatus. abdominal discomfort unchanged. Vitals/I&O's: Vital Signs Temp Pulse Resp BP Pulse Ox 37.1 C 63 16 129/74 H 94 09/13/17 03:00 09/13/17 03:00 09/13/17 03:00 09/13/17 03:00 09/13/17 03:00 Oxygen Flow Rate (L/min) 2 Oxygen Delivery Method Room Air Weight: 89.9 kg Body Mass Index (BMI) 28.4 Intake and Output for Last 24 Hours 09/11/17 09/12/17 09/13/17 23:59 23:59 23:59 Intake Total 3037 / 3037 2212 / 2212 2441 / 2441 Output Total 3450 / 3450 2975 / 2975 1825 / 1825 Balance -413 / -413 -763 / -763 616 / 616 General: Alert, No apparent distress HEENT: Atraumatic, Normocephalic Oral: Moist Mucosa, No Gingival or Mucosal Lesions/ Ulcerations Neck: No Nodes, Thyroid Normal Size and Texture Lungs: Clear to auscultation, Normal air movement, No rhonchi, No wheeze Cardiovascular: Regular rate, Regular Rhythm, Normal S1, Normal S2, No murmurs Abdomen: Hypoactive Bowel Sounds, Distended, Tender Extremities: No edema, No Calf Tenderness Skin: No rashes, No breakdown Psych/Mental Status: Normal Affect, Appropriate Laboratory Results 09/13/17 06:00: WBC 5.0, RBC 4.10 L, Hgb 12.2 L, Hct 35.6 L, MCV 86.8, MCH 29.8 , MCHC 34.3, RDW 13.0, RDW Differential 41.4, Plt Count 214, MPV 9.4, Immature Gran % (Auto) 0.000, Neut % (Auto) 63.6, Lymph % (Auto) 20.7, [place] % (Auto) 13.9 H, Eos % (Auto) 1.6, Baso % (Auto) 0.2, Absolute Neuts (auto) 3.2, Absolute Lymphs (auto) 1.03, Total Counted Not Reportable 09/13/17 06:00: Sodium 140, Potassium 3.1 L, Chloride 105, Carbon Dioxide 28.0, Anion Gap 7, BUN 4 L, Creatinine 0.75, Estim Creat Clear Calc 124.37, Est GFR ( MDRD) Af Amer 143, Est GFR (MDRD) Non-Af 118, BUN/Creatinine Ratio 5.3 L, Glucose 104, Calcium 8.2 L Current Medications Calcium Carbonate (Tums) 1,000 mg PO Q4H PRN PRN PRN Reason: HEARTBURN Enoxaparin Sodium (Lovenox) 40 mg SC DAILY [facility] Last Admin: 09/12/17 09:56 Dose: 40 mg Dextrose/Sodium Chloride () 1,000 mls @ 150 mls/hr IV .Q6H40M [facility] Last Admin: 09/13/17 06:58 Dose: 150 mls/hr Sodium Chloride () 250 mls @ 15 mls/hr IV .[id number] PRN PRN Reason: SALINE FLUSH Last Admin: 09/11/17 13:08 Dose: 15 mls/hr Lidocaine HCl (Xylocaine Viscous) 5 ml PO Q4H PRN PRN PRN Reason: throat pain/irritation Last Admin: 09/05/17 00:35 Dose: 5 ml Magnesium Hydroxide (Milk Of Magnesia) 30 ml PO DAILY PRN PRN PRN Reason: Constipation Metoclopramide HCl (Reglan) 5 mg IV Q6 [facility] Ondansetron HCl (Zofran) 4 mg IV Q4H PRN PRN PRN Reason: NAUSEA Last Admin: 09/11/17 22:10 Dose: 4 mg Pantoprazole Sodium (Protonix) 40 mg PO BID [facility] Last Admin: 09/12/17 22:37 Dose: 40 mg Promethazine HCl (Phenergan) 12.5 mg IV Q6H PRN PRN PRN Reason: NAUSEA/VOMITING Sodium Chloride () 5 - 30 ml IV UD PRN PRN Reason: SALINE FLUSH Last Admin: 09/13/17 06:14 Dose: 30 ml Sodium Chloride () 10 ml IV UD PRN PRN Reason: PICC FLUSH Medical Necessity - Tobacco Use Smoking Status: Never smoker Assessment/Plan All Active Problems Small bowel ileus (Acute) 1. Small bowel obstruction * Status post exploratory laparotomy with lysis of adhesions on 09/09 * Currently n.p.o. * Advance diet per instructions by general surgery * AXR still shows obstruction with air-fluid levels * continue to encourage ambulation * had abdominal cramping with reglan that he qualified as quite severe. Will decrease reglan from 10 to 5 to see if he tolerates that better. Patient was in agreement. * Patient has been admitted since the with the SBO, and had 2 days prior to that where he was having nausea and vomiting. Discussed risks (including bacterial AND fungal infections )and benefits of TPN. Patient in agreement to proceed. 2. GERD * Resume oral PPI once patient able to take oral 3. DVT proph: * LMWH Code Visit Inpatient E&M: 37225 Subs Hosp L2
--- NOTE | 2017-09-13 10:01 | PCM.PN.SRG ---
Patient Problems: Active and Suspected Problems Small bowel ileus (Acute) Subjective: Patient still with complaint of abdominal pain, generalized - 3-4 out of 10 on scale of 1-10 - mostly crampy Denies flatus Doesn't really feel hungry Does feel bloated - Physical Exam General: Alert, Oriented x3 Oral: Moist Mucosa Neck: Supple Lungs: Normal air movement Abdomen: Soft, Distended, - - dressings intact no guarding or peritoneal signs noted Vital Signs Temp Pulse Resp BP Pulse Ox 98.8 F 63 16 129/74 H 94 09/13/17 03:00 09/13/17 03:00 09/13/17 03:00 09/13/17 03:00 09/13/17 03:00 Oxygen Flow Rate (L/min) 2 Oxygen Delivery Method Room Air Weight: 89.9 kg Body Mass Index (BMI) 28.4 Intake and Output for Last 24 Hours 09/11/17 09/12/17 09/13/17 23:59 23:59 23:59 Intake Total 3037 / 3037 2212 / 2212 2441 / 2441 Output Total 3450 / 3450 2975 / 2975 1825 / 1825 Balance -413 / -413 -763 / -763 616 / 616 Laboratory Tests Past 24 Hrs 09/13/17 09/13/17 06:00 06:00 WBC 5.0 RBC 4.10 L Hgb 12.2 L Hct 35.6 L MCV 86.8 MCH 29.8 MCHC 34.3 RDW 13.0 RDW Differential 41.4 Plt Count 214 MPV 9.4 Immature Gran % (Auto) 0.000 Neut % (Auto) 63.6 Lymph % (Auto) 20.7 [place] % (Auto) 13.9 H Eos % (Auto) 1.6 Baso % (Auto) 0.2 Absolute Neuts (auto) 3.2 Absolute Lymphs (auto) 1.03 Total Counted Not Reportable Sodium 140 Potassium 3.1 L Chloride 105 Carbon Dioxide 28.0 Anion Gap 7 BUN 4 L Creatinine 0.75 Estim Creat Clear Calc 124.37 Est GFR (MDRD) Af Amer 143 Est GFR (MDRD) Non-Af 118 BUN/Creatinine Ratio 5.3 L Glucose 104 Calcium 8.2 L Medical Necessity - Tobacco Use Smoking Status: Never smoker Assessment/Plan All Active Problems Small bowel ileus (Acute) POD#4 s/p laparoscopic lysis of adhesions for SBO postoperative ileus Plan: Continue present therapy Patient complaint of symptoms with Reglan, therefore dose has been decreased Will check KUB today - previous KUB reveals that there is contrast in the colon and that was placed prior to surgery - thus there is no obstruction - this is probably a continued ileus
--- NOTE | 2017-09-13 10:08 | RAD_ITS ---
STUDY: X-RAY - ABDOMEN/PELVIS REASON FOR EXAM: Male, 47 years old. Abdominal distention TECHNIQUE: AP supine and upright views of the abdomen and pelvis. COMPARISON: 09/11/2017 FINDINGS: Normal visualized lung bases. Numerous dilated loops of small bowel with air-fluid levels suggesting small bowel obstruction versus ileus. There is no demonstrated free abdominal air. The visualized liver, spleen and kidneys are grossly normal in size and morphology. Normal soft tissue structures. There are diffuse degenerative changes of the visualized lumbar spine. RAD/Abd Inc Decub and/or Erect IMPRESSION: Dilated loops of small bowel with air-fluid levels. No significant change from several days prior Electronically Signed: Pranav Rivera DO at 11:18 EDT Tel , Service support ,
--- NOTE | 2017-09-13 10:25 | NURSING ---
Walking in [place] at this time.
[2017-09-13 10:45] VITALS: BP 132/92; PULSE 64; RESP 18; TEMP 36.7; O2SAT 99
[2017-09-13] MEDS: Metoclopramide 10 MG/2 ML Vial 5 MG IV ×2 (11:23→18:40)
[2017-09-13] MEDS: Pantoprazole Sodium 40 MG Tablet PO ×2 (11:31→21:13)
[2017-09-13] MEDS: Enoxaparin 40 MG/0.4 ML Syringe SC (11:31)
[2017-09-13 15:00] VITALS: BP 140/90; PULSE 60; RESP 18; TEMP 36.7; O2SAT 98
--- NOTE | 2017-09-13 15:50 | NURSING ---
THis nurse spoke with Dr. Lan about decreasing IVF, Dr. Lan said to go ahead and decrease rate on IVF to 75ml/hr when TPN was started. TPN will be started soon.
--- NOTE | 2017-09-13 16:12 | NURSING ---
This nurse is about to start TPN. Daily Weight obtained for 200.5lbs.
[2017-09-13] MEDS: Fat Emulsions 20% 250 ML IV (16:48)
[2017-09-13] MEDS: Dext 5%-0.45% NS 1,000 ML 75 ML IV ×2 (16:49→21:26)
[2017-09-13 17:00] LABS: Bedside Glucose 101 mg/dL (70-110)
[2017-09-13 21:22] VITALS: BP 154/92; PULSE 60; RESP 18; TEMP 36.7; O2SAT 100
[2017-09-13 23:00] VITALS: BP 143/93; PULSE 62; RESP 16
[2017-09-13 23:26] LABS: Bedside Glucose 113 mg/dL (70-110)
[2017-09-14] MEDS: Metoclopramide 10 MG/2 ML Vial 5 MG IV ×3 (00:06→23:22)
[2017-09-14 04:22] VITALS: BP 128/81; PULSE 63; RESP 16; TEMP 37; O2SAT 94
[2017-09-14 04:26] LABS: Bedside Glucose 124 mg/dL (70-110)
[2017-09-14 07:12] LABS: BUN 8 mg/dL (7-18); Glucose 86 mg/dL (74-106)
[2017-09-14 07:13] LABS: BUN/Creat Ratio 9.6 RATIO (10-20); Calcium,Total 8.5 mg/dL (8.5-10.1); Creatinine, Serum 0.83 mg/dL (0.70-1.30); EST Glomerular Filtration Rate 105 mL/min (>60); Est Glom Filt Rate - Afr Amer 127 mL/min (>60); Estimated Creatinine Clearance 112.38 ml/min; Phosphorus 4.5 mg/dL (2.5-4.9); Potassium 3.6 mmol/L (3.5-5.1); Sodium Level 141 mmol/L (136-145)
[2017-09-14 07:14] LABS: Anion Gap 9 (5-15); Chloride 106 mmol/L (98-107)
--- NOTE | 2017-09-14 09:40 | PCM.PN.HOSP ---
Patient Problems: Active and Suspected Problems Small bowel ileus (Acute) Subjective: Had some BMs, but no flatus. Abdominal pain, overall, improved. Vitals/I&O's: Vital Signs Temp Pulse Resp BP Pulse Ox 37.0 C 63 16 128/81 H 94 09/14/17 04:22 09/14/17 04:22 09/14/17 04:22 09/14/17 04:22 09/14/17 04:22 Oxygen Flow Rate (L/min) 2 Oxygen Delivery Method Room Air Weight: 90.86 kg Body Mass Index (BMI) 28.4 Intake and Output for Last 24 Hours 09/12/17 09/13/17 09/14/17 23:59 23:59 23:59 Intake Total 2212 / 2212 3943 / 3943 2015 Output Total 2975 / 2975 3075 / 3075 1450 / 1450 Balance -763 / -763 868 / 868 566 / 566 General: Alert, No apparent distress HEENT: Atraumatic, Normocephalic Neck: No Nodes, Thyroid Normal Size and Texture Lungs: Clear to auscultation, Normal air movement, No rhonchi, No wheeze Cardiovascular: Regular rate, Regular Rhythm, Normal S1, Normal S2, No murmurs Abdomen: Soft, Non Tender, Hypoactive Bowel Sounds Extremities: No edema, No Calf Tenderness Psych/Mental Status: Normal Affect, Appropriate Laboratory Results 09/13/17 16:11: POC Glucose 101 09/13/17 22:47: POC Glucose 113 H 09/14/17 04:18: POC Glucose 124 H 09/14/17 06:22: Sodium 141, Potassium 3.6, Chloride 106, Carbon Dioxide 26.0, Anion Gap 9, BUN 8, Creatinine 0.83, Estim Creat Clear Calc 112.38, Est GFR (MDRD) Af Amer 127, Est GFR (MDRD) Non-Af 105, BUN/Creatinine Ratio 9.6 L, Glucose 86, Calcium 8.5, Phosphorus 4.5 Current Medications Calcium Carbonate (Tums) 1,000 mg PO Q4H PRN PRN PRN Reason: HEARTBURN Enoxaparin Sodium (Lovenox) 40 mg SC DAILY [facility] Last Admin: 09/13/17 11:31 Dose: 40 mg Sodium Chloride () 250 mls @ 15 mls/hr IV .[id number] PRN PRN Reason: SALINE FLUSH Last Admin: 09/11/17 13:08 Dose: 15 mls/hr Multivitamins 10 ml/ Chromium/Copper/Manganese/Seleni/Zn 1 ml/ Folic Acid 1 mg/Famotidine 20 mg/ Amino Acids/Electrolytes 2,013.2 mls @ 84 mls/hr IV .[id number] [facility] Stop: 09/14/17 15:47 Last Admin: 09/13/17 16:48 Dose: 84 mls/hr Dextrose/Sodium Chloride () 1,000 mls @ 75 mls/hr IV .[id number] [facility] Last Admin: 09/13/17 21:26 Dose: 75 mls/hr Multivitamins 10 ml/ Chromium/Copper/Manganese/Seleni/Zn 1 ml/ Folic Acid 1 mg/Famotidine 20 mg/ Amino Acids/Electrolytes 2,013.2 mls @ 84 mls/hr IV .[id number] [facility] Stop: 09/15/17 15:47 Lidocaine HCl (Xylocaine Viscous) 5 ml PO Q4H PRN PRN PRN Reason: throat pain/irritation Last Admin: 09/05/17 00:35 Dose: 5 ml Magnesium Hydroxide (Milk Of Magnesia) 30 ml PO DAILY PRN PRN PRN Reason: Constipation Metoclopramide HCl (Reglan) 5 mg IV Q6 [facility] Last Admin: 09/14/17 06:18 Dose: Not Given Ondansetron HCl (Zofran) 4 mg IV Q4H PRN PRN PRN Reason: NAUSEA Last Admin: 09/11/17 22:10 Dose: 4 mg Pantoprazole Sodium (Protonix) 40 mg PO BID [facility] Last Admin: 09/13/17 21:13 Dose: 40 mg Promethazine HCl (Phenergan) 12.5 mg IV Q6H PRN PRN PRN Reason: NAUSEA/VOMITING Sodium Chloride () 5 - 30 ml IV UD PRN PRN Reason: SALINE FLUSH Last Admin: 09/13/17 18:42 Dose: 10 ml Sodium Chloride () 10 ml IV UD PRN PRN Reason: PICC FLUSH Medical Necessity - Tobacco Use Smoking Status: Never smoker Assessment/Plan All Active Problems Small bowel ileus (Acute) 1. Small bowel obstruction Status post exploratory laparotomy with lysis of adhesions on 09/09 May have post-op ileus now. Currently n.p.o. Advance diet per instructions by general surgery AXR still shows obstruction with air-fluid levels continue to encourage ambulation, which complies with had abdominal cramping with reglan that he qualified as quite severe. Will decrease reglan from 10 to 5 to see if he tolerates that better. Patient was in agreement. Tolerated the 5mg of Reglan better than the 10; though declined it this AM. Patient has been admitted since the with the SBO, and had 2 days prior to that where he was having nausea and vomiting. Discussed risks (including bacterial AND fungal infections )and benefits of TPN. Patient in agreement to proceed. 2. GERD Resume oral PPI once patient able to take oral 3. DVT proph: LMWH Code Visit Inpatient E&M: 26759 Subs Hosp L2
--- NOTE | 2017-09-14 09:43 | PN_ITS ---
Patient Problems: Active and Suspected Problems Small bowel ileus (Acute) Subjective: Had some BMs, but no flatus. Abdominal pain, overall, improved. Vitals/I&O's: Vital Signs Temp Pulse Resp BP Pulse Ox 37.0 C 63 16 128/81 H 94 09/14/17 04:22 09/14/17 04:22 09/14/17 04:22 09/14/17 04:22 09/14/17 04:22 Oxygen Flow Rate (L/min) 2 Oxygen Delivery Method Room Air Weight: 90.86 kg Body Mass Index (BMI) 28.4 Intake and Output for Last 24 Hours 09/12/17 09/13/17 09/14/17 23:59 23:59 23:59 Intake Total 2212 / 2212 3943 / 3943 2015 Output Total 2975 / 2975 3075 / 3075 1450 / 1450 Balance -763 / -763 868 / 868 566 / 566 General: Alert, No apparent distress HEENT: Atraumatic, Normocephalic Neck: No Nodes, Thyroid Normal Size and Texture Lungs: Clear to auscultation, Normal air movement, No rhonchi, No wheeze Cardiovascular: Regular rate, Regular Rhythm, Normal S1, Normal S2, No murmurs Abdomen: Soft, Non Tender, Hypoactive Bowel Sounds Extremities: No edema, No Calf Tenderness Psych/Mental Status: Normal Affect, Appropriate Laboratory Results 09/13/17 16:11: POC Glucose 101 09/13/17 22:47: POC Glucose 113 H 09/14/17 04:18: POC Glucose 124 H 09/14/17 06:22: Sodium 141, Potassium 3.6, Chloride 106, Carbon Dioxide 26.0, Anion Gap 9, BUN 8, Creatinine 0.83, Estim Creat Clear Calc 112.38, Est GFR ( MDRD) Af Amer 127, Est GFR (MDRD) Non-Af 105, BUN/Creatinine Ratio 9.6 L, Glucose 86, Calcium 8.5, Phosphorus 4.5 Current Medications Calcium Carbonate (Tums) 1,000 mg PO Q4H PRN PRN PRN Reason: HEARTBURN Enoxaparin Sodium (Lovenox) 40 mg SC DAILY [facility] Last Admin: 09/13/17 11:31 Dose: 40 mg Sodium Chloride () 250 mls @ 15 mls/hr IV .[id number] PRN PRN Reason: SALINE FLUSH Last Admin: 09/11/17 13:08 Dose: 15 mls/hr Multivitamins 10 ml/ Chromium/Copper/Manganese/Seleni/Zn 1 ml/ Folic Acid 1 mg/ Famotidine 20 mg/ Amino Acids/Electrolytes 2,013.2 mls @ 84 mls/hr IV .[id number] [facility] Stop: 09/14/17 15:47 Last Admin: 09/13/17 16:48 Dose: 84 mls/hr Dextrose/Sodium Chloride () 1,000 mls @ 75 mls/hr IV .[id number] [facility] Last Admin: 09/13/17 21:26 Dose: 75 mls/hr Multivitamins 10 ml/ Chromium/Copper/Manganese/Seleni/Zn 1 ml/ Folic Acid 1 mg/ Famotidine 20 mg/ Amino Acids/Electrolytes 2,013.2 mls @ 84 mls/hr IV .[id number] [facility] Stop: 09/15/17 15:47 Lidocaine HCl (Xylocaine Viscous) 5 ml PO Q4H PRN PRN PRN Reason: throat pain/irritation Last Admin: 09/05/17 00:35 Dose: 5 ml Magnesium Hydroxide (Milk Of Magnesia) 30 ml PO DAILY PRN PRN PRN Reason: Constipation Metoclopramide HCl (Reglan) 5 mg IV Q6 [facility] Last Admin: 09/14/17 06:18 Dose: Not Given Ondansetron HCl (Zofran) 4 mg IV Q4H PRN PRN PRN Reason: NAUSEA Last Admin: 09/11/17 22:10 Dose: 4 mg Pantoprazole Sodium (Protonix) 40 mg PO BID [facility] Last Admin: 09/13/17 21:13 Dose: 40 mg Promethazine HCl (Phenergan) 12.5 mg IV Q6H PRN PRN PRN Reason: NAUSEA/VOMITING Sodium Chloride () 5 - 30 ml IV UD PRN PRN Reason: SALINE FLUSH Last Admin: 09/13/17 18:42 Dose: 10 ml Sodium Chloride () 10 ml IV UD PRN PRN Reason: PICC FLUSH Medical Necessity - Tobacco Use Smoking Status: Never smoker Assessment/Plan All Active Problems Small bowel ileus (Acute) 1. Small bowel obstruction * Status post exploratory laparotomy with lysis of adhesions on 09/09 * May have post-op ileus now. * Currently n.p.o. * Advance diet per instructions by general surgery * AXR still shows obstruction with air-fluid levels * continue to encourage ambulation, which complies with * had abdominal cramping with reglan that he qualified as quite severe. Will decrease reglan from 10 to 5 to see if he tolerates that better. Patient was in agreement. Tolerated the 5mg of Reglan better than the 10; though declined it this AM. * Patient has been admitted since the with the SBO, and had 2 days prior to that where he was having nausea and vomiting. Discussed risks (including bacterial AND fungal infections )and benefits of TPN. Patient in agreement to proceed. 2. GERD * Resume oral PPI once patient able to take oral 3. DVT proph: * LMWH Code Visit Inpatient E&M: [id number] Subs Hosp L2
--- NOTE | 2017-09-14 10:08 | PCM.PN.SRG ---
Patient Problems: Active and Suspected Problems Small bowel ileus (Acute) Subjective: patient is unchanged KUB yesterday shows no changed - still air/fluid levels, contrast in colon patient denies flatus, has more crampy abdominal pain, still feels bloated - Physical Exam General: Alert, Oriented x3 Oral: Moist Mucosa Neck: Supple Abdomen: Soft, Hypoactive Bowel Sounds, Distended - no peritoneal signs noted, no guarding Vital Signs Temp Pulse Resp BP Pulse Ox 98.6 F 63 16 128/81 H 94 09/14/17 04:22 09/14/17 04:22 09/14/17 04:22 09/14/17 04:22 09/14/17 04:22 Oxygen Flow Rate (L/min) 2 Oxygen Delivery Method Room Air Weight: 90.86 kg Body Mass Index (BMI) 28.4 Intake and Output for Last 24 Hours 09/12/17 09/13/17 09/14/17 23:59 23:59 23:59 Intake Total 2212 / 2212 3943 / 3943 2015 Output Total 2975 / 2975 3075 / 3075 1450 / 1450 Balance -763 / -763 868 / 868 566 / 566 Laboratory Tests Past 24 Hrs 09/14/17 06:22 Sodium 141 Potassium 3.6 Chloride 106 Carbon Dioxide 26.0 Anion Gap 9 BUN 8 Creatinine 0.83 Estim Creat Clear Calc 112.38 Est GFR (MDRD) Af Amer 127 Est GFR (MDRD) Non-Af 105 BUN/Creatinine Ratio 9.6 L Glucose 86 Calcium 8.5 Phosphorus 4.5 POC Glucose 09/14/17 09/13/17 09/13/17 04:18 22:47 16:11 POC Glucose 124 H 113 H 101 Medical Necessity - Tobacco Use Smoking Status: Never smoker Assessment/Plan All Active Problems Small bowel ileus (Acute) POD#5 s/p laparoscopic lysis of adhesions for SBO postoperative ileus Plan: Continue present therapy Patient started on peripheral JEREMIAH per hospitalists
[2017-09-14 10:22] VITALS: BP 137/89; PULSE 69; RESP 18; TEMP 36.5; O2SAT 100
[2017-09-14] MEDS: Enoxaparin 40 MG/0.4 ML Syringe SC (10:37)
[2017-09-14] MEDS: Pantoprazole Sodium 40 MG Tablet PO ×2 (10:38→22:08)
[2017-09-14] MEDS: Dext 5%-0.45% NS 1,000 ML 75 ML IV ×2 (10:39→23:19)
[2017-09-14 11:01] LABS: Bedside Glucose 123 mg/dL (70-110)
[2017-09-14 14:31] VITALS: BP 139/86; PULSE 65; RESP 16; TEMP 36.6; O2SAT 98
[2017-09-14 17:20] LABS: Bedside Glucose 99 mg/dL (70-110)
[2017-09-14] MEDS: 0.9% NaCl Peripheral Flush Adult/Peds IV ×2 (18:01→18:11)
[2017-09-14 22:10] VITALS: BP 150/92; PULSE 66; RESP 16; TEMP 36.8; O2SAT 98
[2017-09-14 22:26] LABS: Bedside Glucose 102 mg/dL (70-110)
[2017-09-15 04:28] VITALS: BP 120/71; PULSE 70; RESP 16; TEMP 37.2; O2SAT 96
[2017-09-15 04:30] LABS: Bedside Glucose 144 mg/dL (70-110)
[2017-09-15] MEDS: 0.9% NaCl Peripheral Flush Adult/Peds IV ×3 (05:29→23:53)
[2017-09-15] MEDS: Metoclopramide 10 MG/2 ML Vial 5 MG IV ×4 (05:29→23:53)
--- NOTE | 2017-09-15 06:03 | NURSING ---
Pt passed flatus at this time, up walking in halls
[2017-09-15 06:33] LABS: Anion Gap 10 (5-15); BUN 13 mg/dL (7-18); BUN/Creat Ratio 15.7 RATIO (10-20); Calcium,Total 8.4 mg/dL (8.5-10.1); Chloride 106 mmol/L (98-107); Creatinine, Serum 0.83 mg/dL (0.70-1.30); EST Glomerular Filtration Rate 105 mL/min (>60); Est Glom Filt Rate - Afr Amer 127 mL/min (>60); Estimated Creatinine Clearance 112.38 ml/min; Glucose 107 mg/dL (74-106); Phosphorus 4.4 mg/dL (2.5-4.9); Potassium 3.9 mmol/L (3.5-5.1); Sodium Level 141 mmol/L (136-145)
--- NOTE | 2017-09-15 07:33 | RAD_ITS ---
STUDY: X-RAY - ABDOMEN/PELVIS REASON FOR EXAM: Male, 47 years old. History of small bowel obstruction. TECHNIQUE: AP supine and upright views of the abdomen and pelvis. COMPARISON: Comparison is made with prior study dated September 13, 2017. FINDINGS: Normal visualized lung bases. Persistent dilated small bowel loops with multiple air-fluid levels. Gas is now seen in the colon down to the region of the sigmoid colon. This may represent either an incomplete small bowel obstruction or resolving small bowel obstruction. Further follow-up is recommended. There is no demonstrated free abdominal air. The visualized liver, spleen and kidneys are grossly normal in size and morphology. There are calcified phleboliths in the pelvis. Normal visualized osseous structures. RAD/Abd Inc Decub and/or Erect IMPRESSION: Persistent dilated small bowel loops with air-fluid levels although gas is seen throughout the colon as described. Further follow-up is recommended. Electronically Signed: Abel Villalobos MD at 9:32 EDT Tel [phone], Service support ,
--- NOTE | 2017-09-15 07:38 | NURSING ---
DR DE OLIVEIRA MADE AWARE OF PT +FLATUS & BM THIS AM
--- NOTE | 2017-09-15 10:04 | PN_ITS ---
Patient Problems: Active and Suspected Problems Small bowel ileus (Acute) Subjective: Abdomen feeling better, though still has significant abdominal again at 0300. + Flatus. Has continued to ambulate many times in the hallways. Vitals/I&O's: Vital Signs Temp Pulse Resp BP Pulse Ox 37.2 C 70 16 120/71 96 09/15/17 04:28 09/15/17 04:28 09/15/17 04:28 09/15/17 04:28 09/15/17 04:28 Oxygen Flow Rate (L/min) 2 Oxygen Delivery Method Room Air Weight: 90.1 kg Body Mass Index (BMI) 28.4 Intake and Output for Last 24 Hours 09/13/17 09/14/17 09/15/17 23:59 23:59 23:59 Intake Total 3943 / 3943 4868 / 4868 975 / 975 Output Total 3075 / 3075 3300 / 3300 325 / 325 Balance 868 / 868 1568 / 1568 650 / 650 General: Alert, No apparent distress HEENT: Atraumatic, Normocephalic Oral: Moist Mucosa, No Gingival or Mucosal Lesions/ Ulcerations Neck: No Nodes, Thyroid Normal Size and Texture Lungs: Clear to auscultation, Normal air movement, No rhonchi, No wheeze Cardiovascular: Regular rate, Regular Rhythm, Normal S1, Normal S2, No murmurs Abdomen: Soft, Hypoactive Bowel Sounds, Distended, Tender Extremities: No clubbing, No cyanosis, No edema Skin: No rashes, No breakdown Musculoskeletal: No Tenderness to Palpation of Joints or Extremities, No Muscle Wasting Neurological: Muscle tone normal, Gait narrow based and stable Psych/Mental Status: Normal Affect, Appropriate Laboratory Results 09/14/17 10:55: POC Glucose 123 H 09/14/17 16:54: POC Glucose 99 09/14/17 22:11: POC Glucose 102 09/15/17 04:23: POC Glucose 144 H 09/15/17 05:35: Sodium 141, Potassium 3.9, Chloride 106, Carbon Dioxide 25.0, Anion Gap 10, BUN 13, Creatinine 0.83, Estim Creat Clear Calc 112.38, Est GFR ( MDRD) Af Amer 127, Est GFR (MDRD) Non-Af 105, BUN/Creatinine Ratio 15.7, Glucose 107 H, Calcium 8.4 L, Phosphorus 4.4 Current Medications Calcium Carbonate (Tums) 1,000 mg PO Q4H PRN PRN PRN Reason: HEARTBURN Enoxaparin Sodium (Lovenox) 40 mg SC DAILY [facility] Last Admin: 09/14/17 10:37 Dose: 40 mg Sodium Chloride () 250 mls @ 15 mls/hr IV .[id number] PRN PRN Reason: SALINE FLUSH Last Admin: 09/11/17 13:08 Dose: 15 mls/hr Dextrose/Sodium Chloride () 1,000 mls @ 75 mls/hr IV .[id number] [facility] Last Admin: 09/14/17 23:19 Dose: 75 mls/hr Multivitamins 10 ml/ Chromium/Copper/Manganese/Seleni/Zn 1 ml/ Folic Acid 1 mg/ Famotidine 20 mg/ Amino Acids/Electrolytes 2,013.2 mls @ 84 mls/hr IV .[id number] [facility] Stop: 09/15/17 15:47 Last Admin: 09/14/17 18:01 Dose: 84 mls/hr Ibuprofen (Motrin) 400 mg PO Q4H PRN PRN Reason: pain Lidocaine HCl (Xylocaine Viscous) 5 ml PO Q4H PRN PRN PRN Reason: throat pain/irritation Last Admin: 09/05/17 00:35 Dose: 5 ml Magnesium Hydroxide (Milk Of Magnesia) 30 ml PO DAILY PRN PRN PRN Reason: Constipation Metoclopramide HCl (Reglan) 5 mg IV Q6 [facility] Last Admin: 09/15/17 05:29 Dose: 5 mg Ondansetron HCl (Zofran) 4 mg IV Q4H PRN PRN PRN Reason: NAUSEA Last Admin: 09/11/17 22:10 Dose: 4 mg Pantoprazole Sodium (Protonix) 40 mg PO BID [facility] Last Admin: 09/14/17 22:08 Dose: 40 mg Promethazine HCl (Phenergan) 12.5 mg IV Q6H PRN PRN PRN Reason: NAUSEA/VOMITING Sodium Chloride () 5 - 30 ml IV UD PRN PRN Reason: SALINE FLUSH Last Admin: 09/15/17 05:29 Dose: 30 ml Sodium Chloride () 10 ml IV UD PRN PRN Reason: PICC FLUSH Medical Necessity - Tobacco Use Smoking Status: Never smoker Assessment/Plan All Active Problems Small bowel ileus (Acute) 1. Small bowel obstruction * Status post exploratory laparotomy with lysis of adhesions on 09/09 * May have post-op ileus now. * Currently n.p.o. * Advance diet per instructions by general surgery * AXR still shows obstruction with air-fluid levels (reviewed images today and September 13 with the patient in his room today) * continue to encourage ambulation, which complies with * had abdominal cramping with reglan that he qualified as quite severe. Will decrease reglan from 10 to 5 to see if he tolerates that better. Patient was in agreement. Tolerated the 5mg of Reglan better than the 10; though declined it this AM. * Patient has been admitted since the with the SBO, and had 2 days prior to that where he was having nausea and vomiting. Discussed risks (including bacterial AND fungal infections )and benefits of TPN. Patient in agreement to proceed. 2. GERD * Resume oral PPI once patient able to take oral 3. DVT proph: * LMWH Code Visit Inpatient E&M: [id number] Subs Hosp L2
[2017-09-15] MEDS: Enoxaparin 40 MG/0.4 ML Syringe SC (10:42)
[2017-09-15] MEDS: Pantoprazole Sodium 40 MG Tablet PO ×2 (10:42→20:52)
[2017-09-15 10:45] VITALS: BP 138/89; PULSE 65; RESP 18; TEMP 36.4; O2SAT 97
[2017-09-15 11:25] LABS: Bedside Glucose 133 mg/dL (70-110)
[2017-09-15] MEDS: Dext 5%-0.45% NS 1,000 ML 75 ML IV (13:06)
[2017-09-15 15:03] VITALS: BP 131/92; PULSE 64; RESP 18; TEMP 36.8; O2SAT 97
[2017-09-15] MEDS: Fat Emulsions 20% 250 ML IV (16:39)
[2017-09-15 16:46] LABS: Bedside Glucose 114 mg/dL (70-110)
[2017-09-15 20:50] VITALS: BP 135/95; PULSE 73; RESP 18; TEMP 36.7; O2SAT 100
[2017-09-16 01:46] LABS: Bedside Glucose 132 mg/dL (70-110)
[2017-09-16 02:50] VITALS: BP 132/85; PULSE 80; RESP 19; TEMP 36.6; O2SAT 99
[2017-09-16] MEDS: Dext 5%-0.45% NS 1,000 ML 75 ML IV ×2 (03:00→16:51)
--- NOTE | 2017-09-16 05:00 | RAD_ITS ---
STUDY: X-RAY - ABDOMEN/PELVIS REASON FOR EXAM: Male, 47 years old. Small bowel obstruction. TECHNIQUE: Upright and supine abdomen. COMPARISON: September 15, 2017. CT abdomen and pelvis September 04, 2017. FINDINGS: Normal visualized lung bases. Air-fluid levels in loops of small bowel improved since the prior examination. The majority of loops of small bowel are not dilated. A loop of small bowel in the left midabdomen seen on series CR#3 appears to represent small bowel dilated to 6.4 cm. The appearance of the small bowel was correlated with the the CT of September 04, 2017. Air is present within the colon. There is no demonstrated free abdominal air. The visualized liver, spleen and kidneys are grossly normal in size and morphology. Normal soft tissue structures. Normal visualized osseous structures. RAD/Abd Inc Decub and/or Erect IMPRESSION: In correlation with the recent prior CT of the abdomen and pelvis there appears to be a persistently dilated loop of small bowel in the left abdomen representing jejunum. Consider correlation with CT of the abdomen and pelvis to exclude a closed loop obstruction. Electronically Signed: Riccardo Garland MD at 6:08 EDT , Service support ,
[2017-09-16] MEDS: Metoclopramide 10 MG/2 ML Vial 5 MG IV ×2 (05:58→11:40)
[2017-09-16] MEDS: 0.9% NaCl Peripheral Flush Adult/Peds IV (06:03)
--- NOTE | 2017-09-16 06:09 | PCM.PN.SRG ---
Patient Problems: Active and Suspected Problems Small bowel ileus (Acute) Subjective: passing flatus, still cramping - missed note 09/15 - Physical Exam General: Alert, Oriented x3 Lungs: Clear to auscultation, Normal air movement Cardiovascular: Regular rate, Regular Rhythm Abdomen: Bowel Sounds Present, Soft, Hypoactive Bowel Sounds Vital Signs Temp Pulse Resp BP Pulse Ox 97.8 F 80 19 H 132/85 H 99 09/16/17 02:50 09/16/17 02:50 09/16/17 02:50 09/16/17 02:50 09/16/17 02:50 Oxygen Flow Rate (L/min) 2 Oxygen Delivery Method Room Air Weight: 90.1 kg Body Mass Index (BMI) 28.4 Intake and Output for Last 24 Hours 09/14/17 09/15/17 09/16/17 23:59 23:59 23:59 Intake Total 4868 / 4868 2602 / 2602 2115 / 2115 Output Total 3300 / 3300 1350 / 1350 1400 / 1400 Balance 1568 / 1568 1252 / 1252 715 / 715 Laboratory Tests Past 24 Hrs 09/15/17 05:35 Sodium 141 Potassium 3.9 Chloride 106 Carbon Dioxide 25.0 Anion Gap 10 BUN 13 Creatinine 0.83 Estim Creat Clear Calc 112.38 Est GFR (MDRD) Af Amer 127 Est GFR (MDRD) Non-Af 105 BUN/Creatinine Ratio 15.7 Glucose 107 H Calcium 8.4 L Phosphorus 4.4 POC Glucose 09/16/17 09/15/17 09/15/17 00:03 16:37 11:19 POC Glucose 132 H 114 H 133 H Medical Necessity - Tobacco Use Smoking Status: Never smoker Assessment/Plan All Active Problems Small bowel ileus (Acute) POD # 6 s/p laparoscopic lysis of adhesions for distal high grade partial SBO KUB still demonstrates postoperative ileus picture, laboratory studies unremarkable. will resume clears. continue TPN.
--- NOTE | 2017-09-16 06:11 | PCM.PN.SRG ---
Patient Problems: Active and Suspected Problems Small bowel ileus (Acute) Subjective: multiple liquid BM and more flatus, drank some liquids - Physical Exam General: Alert, Oriented x3 Cardiovascular: Regular rate, Regular Rhythm Abdomen: Bowel Sounds Present, Soft, Hypoactive Bowel Sounds - less distended Vital Signs Temp Pulse Resp BP Pulse Ox 97.8 F 80 19 H 132/85 H 99 09/16/17 02:50 09/16/17 02:50 09/16/17 02:50 09/16/17 02:50 09/16/17 02:50 Oxygen Flow Rate (L/min) 2 Oxygen Delivery Method Room Air Weight: 87.5 kg Body Mass Index (BMI) 28.4 Intake and Output for Last 24 Hours 09/14/17 09/15/17 09/16/17 23:59 23:59 23:59 Intake Total 4868 / 4868 2602 / 2602 2115 / 2115 Output Total 3300 / 3300 1350 / 1350 1400 / 1400 Balance 1568 / 1568 1252 / 1252 715 / 715 Laboratory Tests Past 24 Hrs 09/15/17 05:35 Sodium 141 Potassium 3.9 Chloride 106 Carbon Dioxide 25.0 Anion Gap 10 BUN 13 Creatinine 0.83 Estim Creat Clear Calc 112.38 Est GFR (MDRD) Af Amer 127 Est GFR (MDRD) Non-Af 105 BUN/Creatinine Ratio 15.7 Glucose 107 H Calcium 8.4 L Phosphorus 4.4 POC Glucose 09/16/17 09/15/17 09/15/17 00:03 16:37 11:19 POC Glucose 132 H 114 H 133 H Medical Necessity - Tobacco Use Smoking Status: Never smoker Assessment/Plan All Active Problems Small bowel ileus (Acute) POD # 7 s/p laparoscopic lysis of adhesions for distal high grade partial SBO increased flatus and liquid BMs but KUB still demonstrates postoperative ileus picture, although improving, Will advance to low residue diet and record total oral intake. continue TPN.
--- NOTE | 2017-09-16 06:16 | NURSING ---
Genny, Nursing [employer], looked at PICC line with me. There are no apparent reasons why it does not seem to be drawing well for labs. Dressing intact. Pt states it is not bothering him at all.
[2017-09-16 06:50] LABS: Anion Gap 9 (5-15); BUN 14 mg/dL (7-18); BUN/Creat Ratio 13.7 RATIO (10-20); Calcium,Total 8.9 mg/dL (8.5-10.1); Chloride 105 mmol/L (98-107); Creatinine, Serum 1.02 mg/dL (0.70-1.30); EST Glomerular Filtration Rate 83 mL/min (>60); Est Glom Filt Rate - Afr Amer 100 mL/min (>60); Estimated Creatinine Clearance 91.45 ml/min; Glucose 93 mg/dL (74-106); Phosphorus 4.6 mg/dL (2.5-4.9); Sodium Level 140 mmol/L (136-145)
[2017-09-16 07:44] VITALS: BP 127/75; PULSE 65; RESP 18; TEMP 36.9; O2SAT 98
[2017-09-16] MEDS: Pantoprazole Sodium 40 MG Tablet PO ×2 (09:26→22:36)
[2017-09-16] MEDS: Enoxaparin 40 MG/0.4 ML Syringe SC (09:26)
--- NOTE | 2017-09-16 11:43 | PN_ITS ---
Patient Problems: Active and Suspected Problems Small bowel ileus (Acute) Subjective: + Flatus. Has been taking in oral. Less abdominal pain today. Vitals/I&O's: Vital Signs Temp Pulse Resp BP Pulse Ox 36.9 C 65 18 127/75 H 98 09/16/17 07:44 09/16/17 07:44 09/16/17 07:44 09/16/17 07:44 09/16/17 07:44 Oxygen Flow Rate (L/min) 2 Oxygen Delivery Method Room Air Weight: 87.5 kg Body Mass Index (BMI) 28.4 Intake and Output for Last 24 Hours 09/14/17 09/15/17 09/16/17 23:59 23:59 23:59 Intake Total 4868 / 4868 2602 / 2602 2115 / 2115 Output Total 3300 / 3300 1350 / 1350 1400 / 1400 Balance 1568 / 1568 1252 / 1252 715 / 715 General: Alert, No apparent distress HEENT: Atraumatic, Normocephalic Oral: Moist Mucosa, Dry Mucosa Neck: No Nodes, Thyroid Normal Size and Texture Lungs: Clear to auscultation, Normal air movement, No rhonchi, No wheeze Cardiovascular: Regular rate, Regular Rhythm, Normal S1, Normal S2 Abdomen: Bowel Sounds Present, Soft, Non Tender, Non-Distended Extremities: No edema, No Calf Tenderness Laboratory Results 09/15/17 16:37: POC Glucose 114 H 09/16/17 00:03: POC Glucose 132 H 09/16/17 05:55: Sodium 140, Potassium 4.0, Chloride 105, Carbon Dioxide 26.0, Anion Gap 9, BUN 14, Creatinine 1.02, Estim Creat Clear Calc 91.45, Est GFR ( MDRD) Af Amer 100, Est GFR (MDRD) Non-Af 83, BUN/Creatinine Ratio 13.7, Glucose 93, Calcium 8.9, Phosphorus 4.6 Current Medications Calcium Carbonate (Tums) 1,000 mg PO Q4H PRN PRN PRN Reason: HEARTBURN Enoxaparin Sodium (Lovenox) 40 mg SC DAILY [facility] Last Admin: 09/16/17 09:26 Dose: 40 mg Sodium Chloride () 250 mls @ 15 mls/hr IV .[id number] PRN PRN Reason: SALINE FLUSH Last Admin: 09/11/17 13:08 Dose: 15 mls/hr Dextrose/Sodium Chloride () 1,000 mls @ 75 mls/hr IV .[id number] [facility] Last Admin: 09/16/17 03:00 Dose: 75 mls/hr Multivitamins 10 ml/ Chromium/Copper/Manganese/Seleni/Zn 1 ml/ Folic Acid 1 mg/ Famotidine 20 mg/ Amino Acids/Electrolytes 2,013.2 mls @ 84 mls/hr IV .[id number] [facility] Stop: 09/16/17 15:47 Last Admin: 09/15/17 16:38 Dose: 84 mls/hr Multivitamins 10 ml/ Chromium/Copper/Manganese/Seleni/Zn 1 ml/ Folic Acid 1 mg/ Famotidine 20 mg/ Amino Acids/Electrolytes 2,013.2 mls @ 84 mls/hr IV .[id number] [facility] Stop: 09/17/17 15:47 Ibuprofen (Motrin) 400 mg PO Q4H PRN PRN Reason: pain Lidocaine HCl (Xylocaine Viscous) 5 ml PO Q4H PRN PRN PRN Reason: throat pain/irritation Last Admin: 09/05/17 00:35 Dose: 5 ml Magnesium Hydroxide (Milk Of Magnesia) 30 ml PO DAILY PRN PRN PRN Reason: Constipation Metoclopramide HCl (Reglan) 5 mg IV Q6 [facility] Last Admin: 09/16/17 11:40 Dose: 5 mg Ondansetron HCl (Zofran) 4 mg IV Q4H PRN PRN PRN Reason: NAUSEA Last Admin: 09/11/17 22:10 Dose: 4 mg Pantoprazole Sodium (Protonix) 40 mg PO BID [facility] Last Admin: 09/16/17 09:26 Dose: 40 mg Promethazine HCl (Phenergan) 12.5 mg IV Q6H PRN PRN PRN Reason: NAUSEA/VOMITING Sodium Chloride () 5 - 30 ml IV UD PRN PRN Reason: SALINE FLUSH Last Admin: 09/16/17 06:03 Dose: 10 ml Sodium Chloride () 10 ml IV UD PRN PRN Reason: PICC FLUSH Medical Necessity - Tobacco Use Smoking Status: Never smoker Assessment/Plan All Active Problems Small bowel ileus (Acute) 1. Small bowel obstruction * Status post exploratory laparotomy with lysis of adhesions on 09/09 * May have post-op ileus now. * Improved * Tolerated CLD, advanced to low residue * Advance diet per instructions by general surgery * continue to encourage ambulation, which complies with * had abdominal cramping with reglan that he qualified as quite severe. Will decrease reglan from 10 to 5 to see if he tolerates that better. Patient was in agreement. Tolerated the 5mg of Reglan better than the 10; though declined it this AM. * Patient has been admitted since the with the SBO, and had 2 days prior to that where he was having nausea and vomiting. Discussed risks (including bacterial AND fungal infections )and benefits of TPN. Patient in agreement to proceed. * Hopefully, 1 more day. Reassess 09/17, if tolerated diet and benign exam could be discharged. No need for long-term TPN. 2. GERD * Resume oral PPI once patient able to take oral 3. DVT proph: * LMWH Code Visit Inpatient E&M: 59835 Subs Hosp L2
[2017-09-16 14:15] VITALS: BP 129/90; PULSE 68; RESP 18; TEMP 36.6; O2SAT 98
[2017-09-16 20:07] VITALS: BP 138/82; PULSE 72; RESP 18; TEMP 36.6; O2SAT 97
[2017-09-17 02:07] VITALS: BP 126/69; PULSE 80; RESP 16; TEMP 36.6; O2SAT 95
--- NOTE | 2017-09-17 03:55 | NURSING ---
[employer] taking pt down to xray at this time.
--- NOTE | 2017-09-17 04:00 | RAD_ITS ---
STUDY: X-RAY - ABDOMEN/PELVIS REASON FOR EXAM: Male, 47 years old. Abdominal distention. TECHNIQUE: Upright and supine abdomen. COMPARISON: September 16, 2017. September 15, 2017. FINDINGS: Normal visualized lung bases. No significant change in dilated loops of mid small bowel with air-fluid levels suggestive of a partial mid small bowel obstruction. There is no demonstrated free abdominal air. The visualized liver, spleen and kidneys are grossly normal in size and morphology. Normal soft tissue structures. Normal visualized osseous structures. RAD/Abd Inc Decub and/or Erect IMPRESSION: Partial mid small bowel obstruction unchanged. Electronically Signed: Riccardo Garland MD at 6:38 EDT , Service support ,
[2017-09-17] MEDS: 0.9% NaCl Peripheral Flush Adult/Peds IV ×2 (06:23→06:24)
[2017-09-17] MEDS: Dext 5%-0.45% NS 1,000 ML 75 ML IV (06:23)
--- NOTE | 2017-09-17 07:18 | PCM.DC ---
- Discharge Diagnoses Current Active Problems: Current Active and Chronic Problems Small bowel ileus (Acute) GERD (gastroesophageal reflux disease) (Chronic) You will use the following diet at home:: Other - low residue diet until less abdominal distention and no abdominal pain Discharge Activity: May Shower Call your doctor if your incision/area has: Continuous Slow Oozing, Increased Pain/ Swelling Allergies/Adverse Reactions: Allergies No Known Allergies Allergy (Verified 09/04/17 17:25) Medications to take at Discharge Omeprazole [Prilosec] 10 mg PO BID 09/04/17 Calcium Carbonate [Tums] 1,000 mg PO Q4H PRN PRN #0 tablet 09/17/17 Ibuprofen [Motrin] 400 mg PO Q4H PRN tablet 09/17/17 Primary Care Physician: Lenny Riddle MD [Primary Care Provider] - Test Results: Please Follow Up With: Ld Miller MD When: Next Friday
--- NOTE | 2017-09-17 07:35 | NURSING ---
This nurse is aware of TPN orders. Decreased to 40ml/hr at 0730.
--- NOTE | 2017-09-17 08:04 | PCM.PN.SRG ---
Patient Problems: Active and Suspected Problems Small bowel ileus (Acute) Subjective: less abdominal cramping/pain, still passing flatus, liquidy bowel movements - Physical Exam General: Alert, Oriented x3 Lungs: Clear to auscultation, Normal air movement Cardiovascular: Regular rate, Regular Rhythm Abdomen: Soft - mildly distended, Hypoactive Bowel Sounds Vital Signs Temp Pulse Resp BP Pulse Ox 98 F 80 16 126/69 H 95 09/17/17 02:07 09/17/17 02:07 09/17/17 02:07 09/17/17 02:07 09/17/17 02:07 Oxygen Flow Rate (L/min) 2 Oxygen Delivery Method Room Air Weight: 88.1 kg Body Mass Index (BMI) 28.4 Intake and Output for Last 24 Hours 09/15/17 09/16/17 09/17/17 23:59 23:59 23:59 Intake Total 2602 / 2602 4086 / 4086 2144 / 2144 Output Total 1350 / 1350 1800 / 1800 1050 / 1050 Balance 1252 / 1252 2286 / 2286 1094 / 1094 Medical Necessity - Tobacco Use Smoking Status: Never smoker Assessment/Plan All Active Problems Small bowel ileus (Acute) POD # 8 s/p laparoscopic lysis of adhesions for distal high grade partial SBO increased flatus and liquid BMs but KUB still demonstrates postoperative ileus picture, although improving, patient tolerated a low residue diet, in fact, ate a turkey sandwich and ate chicken salad yesterday. overall, his small bowel x-ray still demonstrates a few loops of distended small bowel but clinically he is tolerating a diet. we discussed treatment options and at this point, the patient is comfortable going home, maintaining a low residue diet until he has improved bowel function and no pain. throughout her discussions over the week, the patient is noted a very long-standing history of irregular bowel activity and what he describes as somewhat sluggish bowels. He takes large amounts of fiber and takes many multivitamins in attempt to improve his bowel function. Once he is over this acute event, we've discussed performing upper and lower endoscopy and also will consider small bowel follow-through for evaluation of possible motility disorders as I would've expected given the degree of lisinopril adhesions that his return to GI function would've been sooner. No other abnormalities were noted at laparoscopy.
--- NOTE | 2017-09-17 08:07 | PN.SURG_ITS ---
Patient Problems: Active and Suspected Problems Small bowel ileus (Acute) Subjective: less abdominal cramping/pain, still passing flatus, liquidy bowel movements - Physical Exam General: Alert, Oriented x3 Lungs: Clear to auscultation, Normal air movement Cardiovascular: Regular rate, Regular Rhythm Abdomen: Soft - mildly distended, Hypoactive Bowel Sounds Vital Signs Temp Pulse Resp BP Pulse Ox 98 F 80 16 126/69 H 95 09/17/17 02:07 09/17/17 02:07 09/17/17 02:07 09/17/17 02:07 09/17/17 02:07 Oxygen Flow Rate (L/min) 2 Oxygen Delivery Method Room Air Weight: 88.1 kg Body Mass Index (BMI) 28.4 Intake and Output for Last 24 Hours 09/15/17 09/16/17 09/17/17 23:59 23:59 23:59 Intake Total 2602 / 2602 4086 / 4086 2144 / 2144 Output Total 1350 / 1350 1800 / 1800 1050 / 1050 Balance 1252 / 1252 2286 / 2286 1094 / 1094 Medical Necessity - Tobacco Use Smoking Status: Never smoker Assessment/Plan All Active Problems Small bowel ileus (Acute) POD # 8 s/p laparoscopic lysis of adhesions for distal high grade partial SBO increased flatus and liquid BMs but KUB still demonstrates postoperative ileus picture, although improving, patient tolerated a low residue diet, in fact, ate a turkey sandwich and ate chicken salad yesterday. overall, his small bowel x-ray still demonstrates a few loops of distended small bowel but clinically he is tolerating a diet. we discussed treatment options and at this point, the patient is comfortable going home, maintaining a low residue diet until he has improved bowel function and no pain. throughout her discussions over the week, the patient is noted a very long- standing history of irregular bowel activity and what he describes as somewhat sluggish bowels. He takes large amounts of fiber and takes many multivitamins in attempt to improve his bowel function. Once he is over this acute event, we' ve discussed performing upper and lower endoscopy and also will consider small bowel follow-through for evaluation of possible motility disorders as I would' ve expected given the degree of lisinopril adhesions that his return to GI function would've been sooner. No other abnormalities were noted at laparoscopy.
--- NOTE | 2017-09-17 08:35 | PCM.DC ---
- Discharge Diagnoses Current Active Problems: Current Active and Chronic Problems Small bowel ileus (Acute) GERD (gastroesophageal reflux disease) (Chronic) You will use the following diet at home:: Full liquid - adavance as tolerated Discharge Activity: May Shower Call your doctor if your incision/area has: Continuous Slow Oozing, Increased Pain/ Swelling Allergies/Adverse Reactions: Allergies No Known Allergies Allergy (Verified 09/04/17 17:25) Medications to take at Discharge Omeprazole [Prilosec] 10 mg PO BID 09/04/17 Calcium Carbonate [Tums] 1,000 mg PO Q4H PRN PRN #0 tablet 09/17/17 Ibuprofen [Motrin] 400 mg PO Q4H PRN tablet 09/17/17 Primary Care Physician: Lenny Riddle MD [Primary Care Provider] - Please follow up with your Primary Care Physician in: in 3-5 days Test Results: Please Follow Up With: Ld Miller MD When: Friday Proposed Discharge Date: 09/17/17
--- NOTE | 2017-09-17 08:36 | PCM.DC.SUM ---
Discharge Date and Diagnosis - Problem List Patient Problems: Active and Suspected Problems SBO (small bowel obstruction) (Acute) Small bowel ileus (Acute) Date of Admission: 09/04/17 Date of Discharge: 09/17/17 - Primary Discharge Diagnosis Active and Suspected Problems SBO (small bowel obstruction) (Acute) Small bowel ileus (Acute) - Secondary Discharge Diagnosis Chronic Problems GERD (gastroesophageal reflux disease) (Chronic) Hospital Course and Treatment Imaging Results: 09/17/17 04:00 Abd Inc Decub and/or Erect [RAD] Urgent Summary of Care Provided: Patient admitted with small bowel obstruction. Patient apparently failed conservative management and underwent exploratory laparotomy with lysis of adhesions on 09/09/2017. Patient was subsequently managed with TPN postoperatively which was weaned off. Patient was deemed stable to be discharged on 09/17/2017. He was instructed to follow-up with his primary care physician as well as Dr. Roy. Discharge Diet: Light diet - advance as tolerated Discharge Activity: May Shower Call your doctor if your incision/area has: Continuous Slow Oozing, Increased Pain/ Swelling Home Medications: Medications to take at Discharge Omeprazole [Prilosec] 10 mg PO BID 09/04/17 Calcium Carbonate [Tums] 1,000 mg PO Q4H PRN PRN #0 tablet 09/17/17 Ibuprofen [Motrin] 400 mg PO Q4H PRN tablet 09/17/17 Primary Care Physician: Lenny Riddle MD [Primary Care Provider] - Please follow up with your Primary Care Physician in: in 3-5 days Please Follow Up With: Ld Miller MD When: Next Friday Disposition: Home Minutes spent on discharge:: 35 Patient Condition:: Stable Medical Necessity - Tobacco Use Smoking Status: Never smoker Meaningful Use Info Meaningful Use Diagnoses (Choose all that apply): None applicable Code Visit Inpatient E&M: 85217 Disch Hosp
[2017-09-17] MEDS: Pantoprazole Sodium 40 MG Tablet PO (10:24)
[2017-09-17 10:37] VITALS: BP 123/84; PULSE 78; RESP 18; TEMP 36.7; O2SAT 99
--- NOTE | 2017-09-17 10:41 | NURSING ---
10 minutes ago at 1030, this nurse decreased TPN rate to 20ml/hr. pt tolerating well.
[2017-09-17 13:37] VITALS: BP 120/86; PULSE 77; RESP 18; TEMP 36.8; O2SAT 99
[2017-09-17 13:51] LABS: Bedside Glucose 83 mg/dL (70-110)
== END 2017-09-17 13:44 | disposition home or self-care (01) | DRG 336 ==
LOC: ED 20:57 → MS3 21:40
PROVIDERS: Hospitalist; Internal Medicine; Surgery; Admitting Provider Internal Medicine; Emergency Provider Emergency Medicine; Family Provider Family Medicine; PCP Family Medicine; Visit Provider Internal Medicine
PROC: 0DNB4ZZ Release Ileum, Percutaneous Endoscopic Approach (ICD-10-PCS; principal; 2017-09-09 07:15)
DX: K56.51 Intestinal adhesions [bands], with partial obstruction (principal); N17.9 Acute kidney failure, unspecified; K56.7 Ileus, unspecified; E86.0 Dehydration
CPT/HCPCS: 36415; 36569; 74018; 74019; 74177; 80048; 80053; 80076; 81001; 82962; 83605; 83690; 83735; 84100; 85025; 85027; 94640; 97802; 97803; 99285; J7030; J7050; Q9967; A4216; J2405; J3490; J7799

== ENCOUNTER 2020-06-29 20:53 | Emergency (ER) | payer BC, SELFPAY ==
[2020-06-29 20:54] VITALS: BP 145/87; PULSE 76; RESP 19; TEMP 36.4; O2SAT 100; BMI 26.1
[2020-06-29] MEDS: Lidocaine 1% (20 ml mdv) 20 ML Vial INFILT (21:53)
--- NOTE | 2020-06-29 22:24 | ED.VISSUMM ---
- ER Visit Summary Date of Service: 06/29/20 Chief Complaint: Left index finger laceration History of Present Illness: The patient is a 49 M who presents with laceration to his left index finger that occurred today. Patient states he was using a knife to make dinner when he accidentally cut his left index finger. Patient states the bleeding has been persistent. Patient denies any paresthesias or weakness. Patient states his last tetanus was within 10 years. Physical Examination: Vital signs are stable. Patient is afebrile. Patient is in no acute distress. Skin is warm and dry. There is a 2.5 cm full-thickness curvilinear laceration over the dorsal and radial aspects of the proximal phalanx of the left index finger. There is moderate gapping of the wound margins. There are no foreign bodies. There is minimal bleeding. Sensation was intact to light touch in all digits. Capillary refill was less than 2 seconds in all digits. Strength is 5/5 in flexion and extension of the MP, PIP, and DIP joints of the left index finger. Emergency Department Course and Treatment: The wound was cleaned and irrigated with copious amounts of normal saline. The wound was anesthetized with 1% plain lidocaine via digital block. The wound was closed with 5 simple interrupted #4-0 nylon sutures under sterile technique. Patient tolerated the procedure well. Bacitracin dressing was applied. Patient was instructed to keep the wound clean and dry. Patient was instructed to follow-up with his primary care physician in 7 days for wound recheck and suture removal. Patient understood and was agreeable with the plan. All questions were answered. Disposition: Discharge home Impression: Left index finger laceration This note was generated with [employer] dictation software. It may contain incorrect words, spelling, and punctuation that were not noted in review of the chart prior to signing ED Disposition - Plan for ED Patient: Disposition: Home or Assisted Living Diagnosis: Laceration of left index finger w/o foreign body w/o damage to nail Instructions: ED Laceration, Hand: All Closures Referrals: Lenny Riddle MD [Primary Care Provider] - 7 Days for suture removal
[2020-06-29 22:30] VITALS: BP 124/78; PULSE 78; RESP 16; TEMP 36.6; O2SAT 98
== END 2020-06-29 22:34 | disposition home or self-care (01) ==
PROVIDERS: Emergency Provider Emergency Medicine; PCP Family Medicine
DX: S61.211A Laceration without foreign body of left index finger without damage to nail, initial encounter (principal); W26.0XXA Contact with knife, initial encounter; Y93.G1 Activity, food preparation and clean up; Y92.000 Kitchen of unspecified non-institutional (private) residence as the place of occurrence of the external cause; Y99.8 Other external cause status
CPT/HCPCS: 12001; 99283

== ENCOUNTER 2020-09-01 16:35 | Observation (INO) | payer BC, SELFPAY ==
[2020-09-01] VITALS (7 sets, daily range): BP systolic 120–139; BP diastolic 74–89; PULSE 59–77; RESP 14–18; TEMP 36.2–36.9; O2SAT 95–100; BMI 27.6; BMI 27.7
--- NOTE | 2020-09-01 17:11 | EKG12_ITS ---
Test Reason : CP Blood Pressure : / mmHG Vent. Rate : 064 BPM Atrial Rate : 064 BPM P-R Int : 128 ms QRS Dur : 090 ms QT Int : 414 ms P-R-T Axes : 029 011 016 degrees QTc Int : 427 ms Normal sinus rhythm Normal ECG Confirmed by ANIKA CORREA, IOANA ([id number]), glass etcher helper KAMALJIT POTTER ([id number]) on 09/04/2020 11:12:39 A M Referred By: MATEUS Confirmed By:REYNA DONALDSON MD
--- NOTE | 2020-09-01 17:26 | EDS_ITS ---
HPI History of Present Illness Chief Complaint: Chest Pain Informant: patient Onset/Context/Timing Onset: Today Activity at onset: gradual and rest Timing: Continuous Quality: Positive for Dull, Heaviness, Pain and Tightness Location: Substernal Current Severity: Mild Maximum Severity: Mild Worsened By: Nothing Relieved By: Nothing Associated Symptoms: Positive for Lightheadedness; Negative for Nausea, Vomiting, Diaphoresis, Dyspnea, Cough and Fever Narrative Narrative: 50-year-old male past medical history of reflux. No cardiac history and patient does not know his family history because he is adopted. He is a non-smoker. States he has not felt well all week somewhat tired and fatigued. Today discounted felt dizzy like lightheaded. And around 8:30 in the morning he had midsternal chest pain. Says he still has some tightness. It did radiate to his left arm and sometimes goes to his neck. States he had a stress test 10 years ago or so it was negative at that time is never had a cardiac catheterization. Prior Similar Symptoms: No Recent Illness/Hospitalization: No CVD Risk Factors: Negative for Hypertension, Diabetes, Hypercholesterolemia and Smoking PE Risk Factors: Negative for Recent Travel/Surgery, Recent Immobilization, Prior DVT or PE, Cancer and OCP + Smoking + >/=35 TAD Risk Factors: Negative for Marfan's Syndrome and Hypertension [facility] Medical History (Updated 09/01/20 @ 18:[address] Christiano Berry MD) GERD (gastroesophageal reflux disease) Home Medications omeprazole 10 mg PO BID 09/04/17 [History Last Taken 09/02/17 08:00 10 mg] ibuprofen 400 mg PO Q4H PRN tablet 09/17/17 [Rx Last Taken Unknown] Allergy/AdvReac Type Severity Reaction Status Date / Time No Known Allergies Allergy Verified 09/01/20 16:36 Surgical History (Updated 09/01/20 @ 17:29 by Jaycee Purcell) History of hernia surgery Social History Smoking Status: Never smoker ROS ROS ED ROS Narrative Denies recent illness other than fatigue. Review of Systems ROS Unobtainable: Denies due to encephalopathy Constitutional Constitutional ED: Denies chills or fever(s) Eyes Eyes: Denies none ENT ENT ED: Denies ear pain or sore throat Cardiovascular Cardiovascular: Reports chest pain; Denies palpitations or racing heartbeat Respiratory/Chest Respiratory/Chest: Denies cough, dyspnea, dyspnea on exertion or sputum Gastrointestinal Gastrointestinal: Denies abdominal pain, constipation, diarrhea, nausea or vomiting Genitourinary Genitourinary ED: Denies dysuria or hematuria Musculoskeletal Musculoskeletal: Denies myalgias Integumentary Denies rash Neurologic Neurologic: Denies headache(s) Psychiatric Psychiatric: Denies depression Endocrine Endocrinology: Denies polyuria Hematologic/Lymphatic Hematologic/Lymphatic: Denies easy bruising Allergic/Immunologic Allergic/Immunologic ED: Denies urticaria EXAM Physical Exam Const Vital Signs: 09/01/20 16:36 09/01/20 17:28 Temperature 97.8 F Temperature Source Temporal Pulse Rate 77 72 Respiratory Rate 14 18 Respiratory Pattern Normal Blood Pressure 128/74 H 120/83 H Blood Pressure Mean 92 95 Pulse Ox 99 95 Oxygen Delivery Method Room Air Room Air Positive well nourished and well developed General Appearance ED: well developed HEENT Reports moist mucous membranes normocephalic and atraumatic; Negative for trauma or tenderness Eyes PERRL and EOMs intact bilaterally General Eye ED: Negative for pale conjunctiva or scleral icterus Neck no lymphadenopathy, supple and no JVD General: Negative for tenderness Chest Wall inspection of chest normal and palpation of chest normal Chest: Negative for tenderness Resp normal respiratory effort and clear to auscultation bilaterally Effort and Inspection: respiratory distress Auscultation: Negative for rales, rhonchi or wheezes Cardio regular rate, regular rhythm, S1 normal heart sound, S2 normal heart sound and no murmurs Rate: Negative for bradycardia or tachycardic GI normal to inspection, nondistended, normoactive bowel sounds, soft to palpation, non-tender, non-distended and no masses Back/Spine no CVA tenderness General Back: Negative for CVA tenderness Extremity normal to inspection General Extremety ED: Negative for edema or tenderness General Extremity: Negative for edema Neuro oriented x3 and CN's II-XII intact bilaterally Sensorium / Orientation: awake, alert, oriented to person and oriented to place Motor Exam: strength 5/5 throughout Psych mental status grossly normal Skin no rashes or lesions noted Heart Score History: Moderately Suspicious ECG: Normal Age: >45 - <65 years Risk Factors: No Risk Factors Troponin: </= Normal Limit Score: 2 MDM MDM MDM Narrative Medical decision making narrative: Middle-aged male atypical nonreproducible chest pain that does radiate to his neck and left arm. Fatigue over the last week. Unremarkable exam. Undergo cardiac work-up may need admission for stress testing. Repeat exam at 6:42 PM patient is doing well. We discussed all his test results. He is willing to be admitted for chest pain of uncertain etiology for further evaluation. I have discussed this with the hospitalist. Lab Data Lab results narrative: Normal. Chemistries normal. Normal creatinine and gap. Troponin normal. Chest x-ray was unremarkable as was EKG. Labs: Laboratory Results - last 24 hr 09/01/20 09/01/20 17:26 17:26 WBC 7.4 RBC 4.89 Hgb 14.8 Hct 43.5 MCV 89.0 MCH 30.3 MCHC 34.0 RDW Std Deviation 41.1 RDW Coeff of Nathan 12.6 Plt Count 220 MPV 9.7 Immature Gran % (Auto) 0.300 Neut % (Auto) 64.4 Lymph % (Auto) 25.2 [place] % (Auto) 7.8 Eos % (Auto) 1.9 Baso % (Auto) 0.4 Absolute Neuts (auto) 4.8 Absolute Lymphs (auto) 1.87 Nucleated RBC % 0 Sodium 140 Potassium 3.4 L Chloride 107 Carbon Dioxide 28.0 Anion Gap 5 BUN 15 Creatinine 1.12 Estim Creat Clear Calc 80.57 Est GFR (MDRD) Af Amer 89 Est GFR (MDRD) Non-Af 74 BUN/Creatinine Ratio 13.4 Glucose 89 Calcium 9.1 Troponin I < 0.015 Radiography Chest X-Ray - ED: 1 View, Read by ED Physician, Normal, Heart, Lungs, Mediastinum, Bony Structures and No Acute Disease Diagnostic Testing: Radiology Impression Chest X-Ray 09/01/20 17:30 IMPRESSION: Normal x-ray examination of the chest. Electronically Signed: Pramod Linton MD at 17:52 EDT , Service support , Single view portable chest x-ray reveals acute abnormality interpreted by myself. Normal cardiac silhouette mediastinum. Rhythm Strip Rhythm Strip: Sinus Rhythm Rate: 64 Ectopy: None EKG Initial EKG: Attestation: I personally reviewed and interpreted this EKG as follows: Interpretation: No Acute Injury Pattern Comments: Normal sinus rhythm rate of 64 no acute signs of [place] nor ischemia. No old EKG currently available for comparison. Prior EKG tracings: not available for review Discharge Plan Triage Chief Complaint: Chest Pain ED Provider: Christiano Berry Dx/Rx/DC Orders Clinical Impression: Chest pain of uncertain etiology Instructions: ED Chest Pain, Uncertain Cause Prescriptions: No Action omeprazole 10 MG capsule 10 mg PO BID RF: 0 ibuprofen 400 MG tablet 400 mg PO Q4H PRN (Reason: pain) RF: 0 Primary Care Provider: Lenny Riddle Referrals: Lenny Riddle MD [Primary Care Provider] - Disposition Disposition: Acute Care Hospital [facility]
[2020-09-01] MEDS: Aspirin 81 MG TAB.CHEW 324 MG PO (17:27)
--- NOTE | 2020-09-01 17:30 | RAD_ITS ---
STUDY: X-RAY CHEST REASON FOR EXAM: Male, 50 years old. chest pain TECHNIQUE: Single AP portable view of the chest. COMPARISON: None. FINDINGS: The lungs are clear and expanded. There is no demonstrated pleural abnormality. Normal size heart. Normal mediastinum and mc. Normal visualized pulmonary arteries. Normal visualized aortic arch and descending thoracic aorta. Normal visualized thoracic spine. Normal visualized ribs, clavicles, and shoulders. There is no demonstrated abnormality of the visualized soft tissue structures of the upper abdomen. RAD/Chest 1 View (Portable) IMPRESSION: Normal x-ray examination of the chest. Electronically Signed: Pramod Linton MD at 17:52 EDT , Service support ,
[2020-09-01 18:02] LABS: Absolute Lymphocyte Count 1.87 X10^3/uL (0.83-4.51); Absolute Neutrophil Count 4.8 X10^3/uL (2.0-7.7); Basophil# 0.03 X10^3/uL; Basophil% 0.4 % (0-1); Eosinophil# 0.14 X10^3/uL; Eosinophils% 1.9 % (0-5); Hematocrit 43.5 % (40-54); Hemoglobin 14.8 g/dL (13.0-16.5); Lymphocyte # 1.87 X10^3/ul (0.83-4.51); Lymphocyte % 25.2 % (19-41); Mean Corpuscular Hgb 30.3 pg (27.0-32.0); Mean Platelet Vol. 9.7 fl (6.2-12.0); Monocyte# 0.58 X10^3/uL; Monocyte% 7.8 % (0-10); NRBC Flagged by Analyzer 0 % (0-5); Neutrophil # 4.77 X10^3/uL (2.7-7.7); Neutrophil % 64.4 % (47-70); Platelet Count 220 K/mm3 (150-450); RBC Distribution Width CV 12.6 % (11.6-14.6); RBC Distribution Width SD 41.1 fl (35.1-43.9); Red Blood Count 4.89 M/mm3 (4.6-6.2); White Blood Count 7.4 K/mm3 (4.4-11.0)
[2020-09-01 18:09] LABS: Anion Gap 5 (5-15); BUN 15 mg/dL (7-18); BUN/Creat Ratio 13.4 RATIO (10-20); Calcium,Total 9.1 mg/dL (8.5-10.1); Chloride 107 mmol/L (98-107); Creatinine, Serum 1.12 mg/dL (0.70-1.30); EST Glomerular Filtration Rate 74 mL/min (>60); Est Glom Filt Rate - Afr Amer 89 mL/min (>60); Estimated Creatinine Clearance 80.57 ml/min; Glucose 89 mg/dL (74-106); Potassium 3.4 mmol/L (3.5-5.1); Sodium Level 140 mmol/L (136-145)
--- NOTE | 2020-09-01 20:02 | PCM.HP.STD ---
HPI - General General Date of Admission: 09/01/20 Date of Service: 09/01/20 Chief Complaint: Precordial chest pain HPI Narrative VANDA THACKER, is a 50 M who presents to the emergency room at [facility] with a chief complaint of precordial chest pain which began today at rest, he complained of tingling in his left arm with left-sided neck pain also. Patient describes his precordial chest discomfort as sharp in nature but also as tightness, patient denied any nausea, he denied any dyspnea, he did state that his palms were sweaty. Patient has no known history of coronary artery disease, he is adopted so he does not know his family history. Patient has no history of hyperlipidemia, type 2 diabetes, or hypertension. Work-up in the emergency room included an EKG which showed normal sinus rhythm without evidence of ischemic changes, patient's chest x-ray was unremarkable, patient's labs including troponin were also unremarkable with the exception of a potassium of 3.4. Patient will be placed in observation status on PCU, serial enzymes will be obtained if these remain normal, he will undergo an exercise nuclear stress test tomorrow. [facility] Medical History (Updated 09/01/20 @ 18:[address] Christiano Berry MD) GERD (gastroesophageal reflux disease) Home Medications omeprazole 10 mg PO BID 09/04/17 [History Last Taken 09/02/17 08:00 10 mg] ibuprofen 400 mg PO Q4H PRN tablet 09/17/17 [Rx Last Taken Unknown] Allergy/AdvReac Type Severity Reaction Status Date / Time No Known Allergies Allergy Verified 09/01/20 16:36 Surgical History (Updated 09/01/20 @ 17:29 by Jaycee Purcell) History of hernia surgery Social History Smoking Status: Never smoker ROS Constitutional Constitutional: Denies anorexia, change in weight, chills, fatigue, fever(s), malaise, night sweats or weakness Eyes Eyes: Denies blurry vision, change in vision, discharge from eye(s) or eye pain Cardiovascular Cardiovascular: Reports chest pain; Denies claudication, dyspnea on exertion, edema, lightheadedness or palpitations Respiratory/Chest Respiratory/Chest: Denies cough, dyspnea, excessive phlegm production, hemoptysis, productive cough, shortness of breath at rest or shortness of breath with exertion Gastrointestinal Gastrointestinal: Denies abdominal pain, constipation, diarrhea, hematemesis, hematochezia, melena, nausea or vomiting Genitourinary Genitourinary: Denies dysuria, hematuria, urinary frequency, urinary hesitancy, urinary incontinence or urinary urgency Musculoskeletal Musculoskeletal: Denies back pain, joint pain, joint stiffness, joint swelling, myalgias or neck pain Neurologic Neurologic: Reports other Details: Patient complained of left arm and left hand tingling during his episode of chest discomfort ; Denies abnormal gait, abnormal speech, dizziness, focal weakness, headache(s), loss of vision, numbness, other visual disturbances, paresthesias, syncope or tingling Psychiatric Psychiatric: Denies anxiety, cognitive impairment, depression, irritability, mood swings or suicidal ideation Endocrine Endocrinology: Denies change in body appearance, cold intolerance, excessive sweating, heat intolerance, polydipsia or polyuria Hematologic/Lymphatic Hematologic/Lymphatic: Denies none, anemia, easy bleeding, easy bruising or lymphadenopathy Allergic/Immunologic Allergic/Immunologic: Denies rhinitis, urticaria, eczemia or asthma Vital Signs Vital Signs Vital Signs: 09/01/20 16:36 09/01/20 17:28 Temperature 97.8 F Temperature Source Temporal Pulse Rate 77 72 Respiratory Rate 14 18 Respiratory Pattern Normal Blood Pressure 128/74 H 120/83 H Blood Pressure Mean 92 95 Pulse Ox 99 95 Oxygen Delivery Method Room Air Room Air Weight Weight: 87.3 kg Body Mass Index (BMI) 27.6 Physical Exam Const alert, oriented x3, no apparent distress, average body habitus and healthy appearing General Appearance: cooperative, well kempt and well developed Orientation / Consciousness: awake, oriented to person, oriented to place and oriented to time HEENT normocephalic, head/scalp atraumatic, hearing grossly normal bilaterally and moist oral mucous membranes Eyes PERRL, EOMs intact bilaterally and conjunctivae normal Neck nuchal rigidity, supple, no JVD, thyroid normal and no carotid bruits General: trachea midline Resp normal respiratory effort, no retractions, no use of accessory muscles and clear to auscultation bilaterally Auscultation: Negative for rales, rhonchi or wheezes Cardio regular rate, regular rhythm, S1 normal heart sound, S2 normal heart sound, no murmurs, no rub, no gallops and no clicks GI normal to inspection, nondistended, normoactive bowel sounds, soft to palpation, non-tender and non-distended Extremity normal to inspection, full ROM and no clubbing, cyanosis or edema Skin no rashes or lesions noted General Skin Exam: no breakdown Neuro oriented x3, CN's II-XII intact bilaterally, no focal motor deficits and no sensory deficits noted Sensorium / Orientation: awake and alert Speech: speech normal Psych thought process normal and affect normal Results Lab / Micro Data Result Diagrams: 09/01/20 17:26 09/01/20 17:26 Labs: Laboratory Results - last 24 hr 09/01/20 09/01/20 17:26 17:26 WBC 7.4 RBC 4.89 Hgb 14.8 Hct 43.5 MCV 89.0 MCH 30.3 MCHC 34.0 RDW Std Deviation 41.1 RDW Coeff of Nathan 12.6 Plt Count 220 MPV 9.7 Immature Gran % (Auto) 0.300 Neut % (Auto) 64.4 Lymph % (Auto) 25.2 [place] % (Auto) 7.8 Eos % (Auto) 1.9 Baso % (Auto) 0.4 Absolute Neuts (auto) 4.8 Absolute Lymphs (auto) 1.87 Nucleated RBC % 0 Sodium 140 Potassium 3.4 L Chloride 107 Carbon Dioxide 28.0 Anion Gap 5 BUN 15 Creatinine 1.12 Estim Creat Clear Calc 80.57 Est GFR (MDRD) Af Amer 89 Est GFR (MDRD) Non-Af 74 BUN/Creatinine Ratio 13.4 Glucose 89 Calcium 9.1 Troponin I < 0.015 Rhythm Strip Rhythm Strip: Sinus Rhythm Rate: 64 Ectopy: None Radiology Impression Chest X-Ray 09/01/20 17:30 IMPRESSION: Normal x-ray examination of the chest. Electronically Signed: Pramod Linton MD at 17:52 EDT , Service support , Assessment & Plan Assessment/Plan (1) Chest pain of uncertain etiology: PLAN: 1. Precordial chest pain-atypical in nature, patient will be placed in observation status on PCU, cardiac isoenzymes will be cycled, if these remain normal patient will undergo an exercise nuclear stress test tomorrow. #2 GERD #3 hypokalemia-this is mild, patient will be given potassium supplementation orally Charges/Coding Visit Charges OBSV E&M: 74483 Initial observation care L3
[2020-09-01 20:37] LABS: Cholesterol 237 mg/dL (200); High Density Lipoprotein 46 mg/dL; Triglycerides 176 mg/dL; Very Low Density Lipoprotein 35 mg/dL (5-40)
--- NOTE | 2020-09-01 21:07 | EKG12_ITS ---
Test Reason : CP ADMISSION Blood Pressure : / mmHG Vent. Rate : 064 BPM Atrial Rate : 064 BPM P-R Int : 140 ms QRS Dur : 092 ms QT Int : 410 ms P-R-T Axes : 032 004 -02 degrees QTc Int : 422 ms Normal sinus rhythm Inferior infarct , age undetermined Abnormal ECG When compared with ECG of 01-SEP-2020 16:44, MANUAL COMPARISON REQUIRED, DATA IS UNCONFIRMED Confirmed by NEL CORREA, GABRIELLE ([id number]), copy editor KAMALJIT POTTER ([id number]) on 09/05/2020 9:43:17 AM Referred By: JONEL Confirmed By:GABRIELLE NEUMANN MD
[2020-09-01] MEDS: Potassium Chloride Oral Tablet 20 MEQ PO (21:15)
[2020-09-01] MEDS: 0.9% Saline Lock 10 ML Syringe IV (21:18)
[2020-09-02 03:00] VITALS: PULSE 54
[2020-09-02 05:36] VITALS: BP 119/64; PULSE 63; RESP 16; TEMP 36.5; O2SAT 96
--- NOTE | 2020-09-02 05:55 | EKG12_ITS ---
Test Reason : AM EKG Blood Pressure : / mmHG Vent. Rate : 052 BPM Atrial Rate : 052 BPM P-R Int : 142 ms QRS Dur : 100 ms QT Int : 456 ms P-R-T Axes : 038 011 018 degrees QTc Int : 424 ms Sinus bradycardia Otherwise normal ECG When compared with ECG of 01-SEP-2020 21:07, MANUAL COMPARISON REQUIRED, DATA IS UNCONFIRMED Confirmed by NEL CORREA, GABRIELLE ([id number]), editorial specialist KAMALJIT POTTER ([id number]) on 09/05/2020 9:39:11 AM Referred By: JONEL Confirmed By:GABRIELLE NEUMANN MD
[2020-09-02 06:40] VITALS: BP 126/77; PULSE 59; RESP 16; TEMP 36.5; O2SAT 97
[2020-09-02 10:45] VITALS: BP 124/82; PULSE 74; RESP 16; TEMP 37; O2SAT 95
[2020-09-02] MEDS: Pantoprazole Sodium 20 MG Tablet PO (11:31)
--- NOTE | 2020-09-02 12:06 | NURSING ---
protonix would not scan my finger. Charge called IS and med put in manually verified with collection technician.
--- NOTE | 2020-09-02 12:40 | STRESSREP_ITS ---
Stress Test Report Date: 09/02/2020 Procedure: Exercise tolerance test/imaging study Indications: Chest pain Consent: Per the patient Procedure: The patient exercised on a Lasha protocol for 9 minutes and 14 seconds achieving a peak heart rate of 169 bpm (100% predicted maximal heart rate) with a peak blood pressure 178/82 mmHg and a peak MET capacity of 10.4 METs. The baseline ECG demonstrated normal sinus rhythm. The peak exercise ECG demonstrated no significant ischemic changes. EKG during recovery revealed no significant ischemic changes [There were no cardiac dysrhythmias pretest, during exercise, or recovery]. The functional capacity was considered excellent for age. There was [no complaint of chest discomfort during exercise or recovery]. The examination was discontinued secondary to leg discomfort. Impression: 1. Technically adequate (percent predicted maximal heart rate greater than 85%) exercise tolerance test 2. Stress test is negative for exercise-induced EKG changes of ischemia 3. The test test is negative for exercise-induced chest pain 4. Functional capacity is excellent for age 5. Nuclear images pending Myocardial perfusion imaging study: Technique: The patient was injected with 12 mCi of technetium 99m Cardiolite and subsequently rest SPECT Cardiolite nuclear imaging was obtained in the horizontal long, vertical long, and short axis views. The patient exercised on a Lasha protocol. Please see above for details. The patient was injected with 36 mCi of technetium 99m Cardiolite and subsequently stress SPECT Cardiolite nuclear imaging was obtained in the horizontal long, vertical long, and short axis views. A gated Cardiolite study at peak stress was obtained. Interpretation: Rest and stress SPECT Cardiolite nuclear imaging status post realignment, normalization, and attenuation correction, demonstrates no evidence of significant ischemia or infarction. The gated Cardiolite study demonstrates no significant regional wall motion abnormalities. The reported LVEF is 54%. Impression: 1. There is no evidence of significant ischemia or infarction. 2. The gated Cardiolite study reports an LVEF of 54%. This note was generated with GetQuikation software. It may contain incorrect words, spelling, and punctuation that were not noted in checking the note before signing.
[2020-09-02] MEDS: Potassium Chloride Oral Tablet 20 MEQ 40 MEQ PO (13:10)
--- NOTE | 2020-09-02 13:55 | PCM.DC ---
Discharge Instructions Diet Discharge Diet: No restrictions Activity Discharge Activity: Return to Normal Activity Weight Bearing Status: Full weight bearing Dressing / Incision Call your doctor if you observe: Fever of 101 or Higher, Shortness of breath, Dizziness, Chest pain and Increased palpitations (irregular heartbeat) Follow Up Care Test Results: Test results from this visit will be discussed in further detail at your follow-up appointment, if applicable. Discharge Plan Admission Admit Date/Time: 09/01/20 19:39 Primary Reason for Your Visit: Chest Pain Attending Provider: Jesus Will Primary Care Provider: Lenny Riddle Instructions Patient Instructions: ED Chest Pain, Noncardiac, ED Chest Pain, Uncertain Cause Discharge Orders/Prescriptions Prescriptions: Continued omeprazole 10 MG capsule 10 mg PO BID RF: 0 ibuprofen 400 MG tablet 400 mg PO Q4H PRN (Reason: pain) RF: 0 Referrals / Follow Up: Lenny Riddle MD [Primary Care Provider] - Within 2 Weeks Disposition Disposition (needs filled in before D/C Order can be placed): Home, self care
--- NOTE | 2020-09-02 13:58 | DS.PCM_ITS ---
Providers Date of Admission: 09/01/20 Primary Care Physician: Dr. Lenny Riddle MD Reason For Visit: CHEST PAIN Diagnosis Discharge Diagnosis (1) Chest pain of uncertain etiology: Status: Acute Code(s): R07.9 - Chest pain, unspecified Medications at Discharge Home Medications omeprazole 10 mg PO BID 09/04/17 ibuprofen 400 mg PO Q4H PRN tablet 09/17/17 Hospital Course Operations None Procedures Stress test Summary of Care Provided Minutes Spent on Discharge: 35 Hospital Course: 1. Precordial chest pain -Troponin negative x3 -Stress test negative, EF 54% -We will have patient follow-up with PCP for evaluation of other causes of chest pain 2. GERD -Continue omeprazole 3. Hypokalemia -Presented with K 3.4, patient was given total of 60 p.o. potassium chloride replacement -Follow-up with PCP This patient was seen by YOLANDA Carreon under the supervision of Dr. Will Physical Exam Const alert, oriented x3 and no apparent distress HEENT normocephalic and head/scalp atraumatic Eyes conjunctivae normal and no scleral icterus Neck full ROM, no lymphadenopathy, supple and no JVD General: trachea midline Resp normal respiratory effort, normal air movement, no use of accessory muscles and clear to auscultation bilaterally Cardio regular rate, regular rhythm, S1 normal heart sound and S2 normal heart sound Peripheral Pulses: pulses 2+ throughout GI normal to inspection, nondistended, normoactive bowel sounds, soft to palpation and non-tender Extremity normal to inspection, full ROM, normal capillary refill and no clubbing, cyanosis or edema Skin no rashes or lesions noted and skin turgor normal Neuro oriented x3, moves all extremities and no focal motor deficits Psych mental status grossly normal, thought process normal, cooperative, affect normal and speech normal Weight / BMI Weight Weight: 193 lb 1.999 oz Body Mass Index (BMI) 27.7 ABG / Lab / Microbiology Data Result Diagrams: 09/01/20 17:26 09/01/20 17: Laboratory: Laboratory Results - last 24 hr 09/01/20 09/01/20 09/01/20 17:26 17:26 17:26 WBC 7.4 RBC 4.89 Hgb 14.8 Hct 43.5 MCV 89.0 MCH 30.3 MCHC 34.0 RDW Std Deviation 41.1 RDW Coeff of Nathan 12.6 Plt Count 220 MPV 9.7 Immature Gran % (Auto) 0.300 Neut % (Auto) 64.4 Lymph % (Auto) 25.2 [place] % (Auto) 7.8 Eos % (Auto) 1.9 Baso % (Auto) 0.4 Absolute Neuts (auto) 4.8 Absolute Lymphs (auto) 1.87 Nucleated RBC % 0 Sodium 140 Potassium 3.4 L Chloride 107 Carbon Dioxide 28.0 Anion Gap 5 BUN 15 Creatinine 1.12 Estim Creat Clear Calc 80.57 Est GFR (MDRD) Af Amer 89 Est GFR (MDRD) Non-Af 74 BUN/Creatinine Ratio 13.4 Glucose 89 Calcium 9.1 Troponin I < 0.015 Triglycerides 176 Cholesterol 237 H LDL Cholesterol 156 H VLDL Cholesterol 35 HDL Cholesterol 46 09/01/20 09/01/20 21:05 23:20 WBC RBC Hgb Hct MCV MCH MCHC RDW Std Deviation RDW Coeff of Nathan Plt Count MPV Immature Gran % (Auto) Neut % (Auto) Lymph % (Auto) [place] % (Auto) Eos % (Auto) Baso % (Auto) Absolute Neuts (auto) Absolute Lymphs (auto) Nucleated RBC % Sodium Potassium Chloride Carbon Dioxide Anion Gap BUN Creatinine Estim Creat Clear Calc Est GFR (MDRD) Af Amer Est GFR (MDRD) Non-Af BUN/Creatinine Ratio Glucose Calcium Troponin I < 0.015 < 0.015 Triglycerides Cholesterol LDL Cholesterol VLDL Cholesterol HDL Cholesterol Radiography Diagnostic Testing: Radiology Impression Chest X-Ray 09/01/20 17:30 IMPRESSION: Normal x-ray examination of the chest. Electronically Signed: Pramod Linton MD at 17:52 EDT , Service support , D/C Instructions Discharge Diet: No restrictions Weight Bearing Status: Full weight bearing Call your doctor if you observe: Fever of 101 or Higher, Shortness of breath, Dizziness, Chest pain and Increased palpitations (irregular heartbeat) Meaningful Use Info Meaningful Use Diagnoses (Choose all that apply): None applicable Discharge Plan Admission Admit Date/Time: 09/01/20 19:39 Primary Reason for Your Visit: Chest Pain Attending Provider: Jesus Will Primary Care Provider: Lenny Riddle Instructions Patient Instructions: ED Chest Pain, Noncardiac, ED Chest Pain, Uncertain Cause Discharge Orders/Prescriptions Prescriptions: Continued omeprazole 10 MG capsule 10 mg PO BID RF: 0 ibuprofen 400 MG tablet 400 mg PO Q4H PRN (Reason: pain) RF: 0 Referrals / Follow Up: Lenny Riddle MD [Primary Care Provider] - Within 2 Weeks Disposition Disposition (needs filled in before D/C Order can be placed): Home, self care
[2020-09-02 14:17] VITALS: BP 124/82; PULSE 74; RESP 18; TEMP 37; O2SAT 95
== END 2020-09-02 13:57 | disposition home or self-care (01) ==
LOC: ED 18:51 → PCU 19:52
PROVIDERS: Hospitalist; Admitting Provider Internal Medicine; Emergency Provider Emergency Medicine; PCP Family Medicine; Visit Provider Internal Medicine
DX: R07.2 Precordial pain (principal); R20.2 Paresthesia of skin; M54.2 Cervicalgia; K21.9 Gastro-esophageal reflux disease without esophagitis; Z79.899 Other long term (current) drug therapy; E87.6 Hypokalemia
CPT/HCPCS: 36415; 71045; 78452; 80048; 80061; 84484; 85025; 93005; 93017; 99218; 99285; A9500; A4216; G0378

== ENCOUNTER → 2021-02-21 10:57 | Outpatient (CLI) | payer BC, SELFPAY ==
[2021-02-21 12:45] LABS: Hematocrit 45.8 % (40-54); Hemoglobin 15.6 g/dL (13.0-16.5); Mean Corp Hgb Conc 34.1 g/dL (32-36); Mean Corpuscular Hgb 30.6 pg (27.0-32.0); Mean Corpuscular Volume 89.8 fL (80-94); Mean Platelet Vol. 9.9 fl (6.2-12.0); Platelet Count 247 K/mm3 (150-450); RBC Distribution Width CV 12.8 % (11.6-14.6); White Blood Count 6.5 K/mm3 (4.4-11.0)
[2021-02-21 13:07] LABS: Anion Gap 7 (5-15); BUN 11 mg/dL (7-18); BUN/Creat Ratio 10.4 RATIO (10-20); Chloride 109 mmol/L (98-107); Creatinine, Serum 1.06 mg/dL (0.70-1.30); EST Glomerular Filtration Rate 78 mL/min (>60); Est Glom Filt Rate - Afr Amer 95 mL/min (>60); Glucose 112 mg/dL (74-106); Potassium 4.3 mmol/L (3.5-5.1); Sodium Level 143 mmol/L (136-145)
== END ==
PROVIDERS: PCP Family Medicine; Referring Provider Family Medicine; Visit Provider Family Medicine
DX: Z01.818 Encounter for other preprocedural examination (principal)
CPT/HCPCS: 36415; 80048; 85027

== ENCOUNTER 2021-03-13 11:28 | Day surgery (SDC) | payer BC, SELFPAY ==
[2021-03-13] VITALS (7 sets, daily range): BP systolic 110–131; BP diastolic 74–78; PULSE 64–75; RESP 16–18; TEMP 35.5–36.9; O2SAT 95–100; BMI 27.9
[2021-03-13] MEDS: Lactated Ringers 1,000 ML 15 ML IV (12:06)
--- NOTE | 2021-03-13 12:54 | RAD_ITS ---
STUDY: X-RAY LEFT FOOT, 1 TOE REASON FOR EXAM: Male, 50 years old. foot sharp matrixectomy of medial hallux nail, exostectomy of distal phalanx of hallux TECHNIQUE: 2 view(s) of the toe were obtained. COMPARISON: None. FINDINGS: 7 seconds of fluoroscopy of the left first digit was utilized for operating room during surgery and 3 images are significant for interpretation.. RAD/Toe(s) Min 2 Views IMPRESSION: Fluoroscopy during surgery. Electronically Signed: Ld Mancini MD at 8:52 EST Tel , Service support ,
--- NOTE | 2021-03-13 13:00 | BON_PTH ---
PATIENT: VANDA THACKER LOC: [facility] [place] U#:[id number] AGE/SX: 50/M ROOM: RE03/13/[address]: Dr. Aline Johnson DPM : 1970 BED: DIS: 03/13/2021 SPEC #: [id number] RECD: 03/13/21 14:16 STATUS: REMA RECyndee #: [id number] RUTH: 03/13/21 13:[address]: Aline Johnson DEPT: SURGICAL PATHOLOGY RECD BY: Janna Márquez ENTERED: 03/14/21 12:10 SP TYPE: Bone OTHR DR: Dr. Vasiliy Riddle MD Tissues: Nail of toe, NOS Procedures: Decalcification bone/plaque Surgery Specimen Level III HEADER OPERATION: Foot sharp matrixectomy of medial hallux nail, exostectomy PRE-OP DIAGNOSIS: Ingrown nail TISSUE SUBMITTED: Exostosis left hallux MICROSCOPIC DIAGNOSIS Exostosis left hallux: A piece of bone with reactive changes. MICAELA:toney 03/15/2021 MICROSCOPIC DESCRIPTION Slides are reviewed. GROSS DESCRIPTION Received in fixative is one container labeled with the patient's name and designated exostosis left hallux. The specimen consists of a piece of bone measuring 0.5 x 0.5 x 0.3 cm. The entire specimen is submitted in one cassette after decalcification. / MICAELA:toney 03/14/21 TC:5 CPT: 40594, 14969
[2021-03-13] MEDS: Bupivacaine Mpf 0.5% 30 ML VIAL (13:15)
[2021-03-13] MEDS: Lidocaine 1% (20 ml mdv) 20 ML Vial (13:15)
--- NOTE | 2021-03-13 13:41 | EX.PCM.DISCH ---
Discharge Instructions Procedure Narrative: left hallux sharp matrixectomy with exostectomy Diet Discharge Diet: No restrictions Activity Discharge Activity: May Drive (but not while on pain medication) and May Shower (cover dressing with shower bag) Weight Bearing Status: Full weight bearing (use surgical shoe) Keep extremity elevated above heart level: Left Leg Dressing / Incision Call your doctor if your incision/area has: Continuous Slow Oozing, Sudden Increased Bleeding, Increased Pain/ Swelling, Increased Redness, Foul Smelling Discharge and Swelling at the incision site Call your doctor if you observe: Fever of 101 or Higher and Calf discomfort Change Dressing in: do not change dressing Remove Dressing in: do not remove dressing Cleanse incision/area with: Keep Dressing Clean & Dry Follow Up Care Please Follow Up With: Aline Johnson DPM When: 1 [facility]. call [phone] if question or concerns. Test Results: Test results from this visit will be discussed in further detail at your follow-up appointment, if applicable. Discharge Plan Admission Attending Provider: Aline Johnson Primary Care Provider: Lenny Riddle Discharge Orders/Prescriptions Prescriptions: New acetaminophen-codeine 300-15 mg tablet 1 tab PO Q4H PRN (Reason: pain) 4 Days Qty: 20 RF: 0 No Action ibuprofen 400 MG tablet 400 mg PO Q4H PRN (Reason: pain) RF: 0 fiber Tablet 1 tab PO DAILY RF: 0 multivitamin Capsule 1 cap PO DAILY RF: 0 esomeprazole magnesium [Nexium] 20 mg Capsule,Delayed Release(Dr/Ec) 20 mg PO BID RF: 0 Fish Oil 300-500 mg Capsule 1 cap PO BID RF: 0 Eye Vitamin and Minerals [id number],[id number] [id number] Tablet 1 tab PO DAILY RF: 0 halle root-pyridoxine HCl(B6) 325-25 mg Capsule 1 cap PO QHS RF: 0 Colon Health 1 tab PO/SL QHS RF: 0 Referrals / Follow Up: Lenny Riddle MD [Primary Care Provider] - Disposition Disposition (needs filled in before D/C Order can be placed): Home, Self Care
--- NOTE | 2021-03-13 13:43 | OP.PCM_ITS ---
Problems Associated Problem List Diagnoses (1) Toe pain: (2) Ingrowing nail: (3) Abnormal bone formation: Report of Operation Date of Procedure: 03/13/21 Pre-Operative Diagnosis: chronic ingrown toenail (recurrent) with underlying subungual exostosis left hallux distal phalanx Post-Operative Diagnosis: chronic ingrown toenail (recurrent) with underlying subungual exostosis left hallux distal phalanx Surgery/Procedure Performed:: winograd sharp matrixectomy medial left hallux exostectomy left hallux distal phalanx Description of Surgical Findings:: hemostasis: well padded pneumatic ankle tourniquet, 250 mmHg, 14 minutes complications: none materials 2-0 nylon specimen sent to pathology The patient tolerated the procedure and anesthesia well. The patient was transported to the PACU with vital signs stable and vascular status intact to the surgical limb. To ice and elevate for pain and inflammation management. Postoperative x-rays were reviewed prior to leaving the operating room. This x- ray demonstrated adequate resection of the exostosis. No additional acute injuries or foreign bodies were identified. The postoperative orders were entered electronically. Surgeon: Aline Johnson temporary help agency referral clerk: None (Rudolph Cisneros, PGY1, DPM) Type of Anesthesia: General and Local (Preoperative: 1:1 mix 1% lidocaine plain and 0.5% Marcaine plain administered typical first ray block fashion, 10 cc) Specimen's removed: exostosis left hallux sent to pathology Drains: none Estimated Blood Loss (mL): <3 mL Description of Procedure: Indications: This 50-year-old male with no significant past medical history has dealt with a chronic recurrent ingrown toenail of the left hallux medial border. It is noted he has had multiple chemical matricectomy was performed in the outpatient setting by his primary care physician, a different termite control servicer, and one procedure performed by myself. There is continued regrowth and pain with shoe gear use and ambulation. His neurovascular status is intact. He has pain palpation to the medial incurvated nail border of the left hallux. Radiographs demonstrate small exostosis adjacent to this ingrown toenail site without osseous prolifer ation, destruction, foreign body or adjacent joint arthritis. Preoperative H&P were reviewed including his diagnostic data. There is no gross abnormalities noted with labs. Preoperative indications, planned procedure, benefits, risk, anticipated healing time and management were reviewed. The patient understands and elects proceed with surgery at this time. No guarantees were made. The patient understands risk and complications include but are not limited to following: pain, swelling, scarring, need for further surgery, tendon contracture, transfer lesion, arthritis, need for further surgery, delayed or nonhealing, infection, blood clot, allergic reaction, loss of limb, function, or life. The informed surgical limb and consent were signed. I answered all the patient's questions. The patient also understands there is an inherent risk with being in the hospital and undergoing a procedure during the time of COVID-19 pandemic. The patient understands precautions are being taken to prevent transmission. This patient understands the benefits and risks of having a procedure at this time versus waiting in which the benefits are reasonable at this time. Procedure in detail: The patient was transported to the operating room via cart and placed on the operating room table in supine position. Final verification of the patient, surgery, limb designation was performed via the timeout procedure. Preoperative antibiotics were administered by the anesthesia team. Anesthesia was initiated by the anesthesia team. The podiatry team administered the local anesthetic as noted. A well-padded pneumatic left ankle tourniquet was placed. Left lower extremity was prepped and draped in the usual aseptic manner. An Esmarch bandage was used to exsanguinate the left lower extremity and the tourniquet was inflated at this time. Surgery began as following: Attention was first directed to the medial border of the left hallux nail in which a small instrument was used to free the incurvated nail border at the level of curvature from the underlying nail bed, eponychium and proximal nail fold. Next a small nipper was used to avulsed this nail border this was removed in total without difficulty. A Winograd procedure was performed including a small 3 mm incision proximal to the nail fold and the skin was reflected back. A sharp excision of the matrix, adjacent nailbed, and nail fold were excised in total. The proximal distal phalanx bone was exposed at this time and the small adjacent exostosis was identified. A rongeur was used to excise this in total. Full resection was confirmed with intraoperative fluoroscopy. A rasp was used to smooth this out. The intraoperative x-rays were reviewed as noted. Copious saline irrigation was performed. Next, 2-0 nylon was used to reapproximate the nail to the adjacent skin utilizing horizontal and simple suture techniques. The tourniquet was deflated at this time and brisk capillary refill time was noted to all digits of the left foot. No pulsatile bleeding was noted. Direct pressure was applied to maintain hemostasis. A dressing consisting of Betadine soaked Adaptic, gauze, Mateo and Coban was applied. After procedure: The patient tolerated the procedure and anesthesia well. The patient was transported to the PACU with vital signs stable and vascular status intact to the surgical limb. To ice and elevate for pain and inflammation management. Postoperative x-rays were reviewed prior to leaving the operating room as noted. Postoperative orders were entered electronically. He will be discharged home. He was advised on safe and proper pain medication use. He was advised to keep his dressing clean, dry, and intact until follow-up with the [facility] next week. He was advised to heel weight-bear in a surgical shoe and to keep pressure directly off of the surgical site. Aline Johnson DPM, FACF[facility] Grafts/Implants Used: none Complications none Admit VTE Documentation VTE Present on Admission: No VTE Mechan Device Prophylaxis: SCD's VTE Pharm Prophylaxis ordered?: No Reason prophylaxis not ordered:: Procedure Not Indicated
== END 2021-03-13 15:04 | disposition home or self-care (01) ==
LOC: SDC 11:32 → AC 11:35
PROVIDERS: PCP Family Medicine; Referring Provider Podiatrist; Visit Provider Podiatrist
PROC: (CPT 28292; principal; 2021-03-13 12:45)
DX: L60.0 Ingrowing nail (principal); M89.9 Disorder of bone, unspecified; K21.9 Gastro-esophageal reflux disease without esophagitis
CPT/HCPCS: 01480; 11750; 28124; 73660; 76000; 88304; 88305; 88311; J7120; J2405

== ENCOUNTER → 2022-03-01 | Outpatient (CLI) | payer BC, SELFPAY ==
--- NOTE | 2022-03-01 11:33 | RAD_ITS ---
STUDY: X-RAY - ABDOMEN/PELVIS REASON FOR EXAM: Male, 51 years old. ABDOMINAL PAIN TECHNIQUE: 4 AP views COMPARISON: None. FINDINGS: Normal visualized lung bases. There is an unremarkable bowel gas pattern. There is no demonstrated free abdominal air. The visualized liver, spleen and kidneys are grossly normal in size and morphology. Normal soft tissue structures. Normal visualized osseous structures. RAD/Abd Inc Decub and/or Erect IMPRESSION: Normal x-ray examination of the abdomen and pelvis. Electronically Signed: Kirill Young MD at 13:39 EST ,
[2022-03-01 15:50] LABS: ALB/GLOB Ratio 1.4 RATIO (0.9-2.4); AST(SGOT) 19 U/L (15-37); Alanine Aminotransfer ALT/SGPT 38 U/L (16-61); Albumin, Serum 4.4 g/dL (3.2-5.0); Alkaline Phosphatase 58 U/L (45-117); Anion Gap 6 (5-15); BUN 15 mg/dL (7-18); BUN/Creat Ratio 13.8 RATIO (10-20); Calcium,Total 9.1 mg/dL (8.5-10.1); Chloride 107 mmol/L (98-107); Cholesterol 236 mg/dL (200); Creatinine, Serum 1.09 mg/dL (0.70-1.30); EST Glomerular Filtration Rate 75 mL/min (>60); Est Glom Filt Rate - Afr Amer 91 mL/min (>60); Globulin 3.2 g/dL (2.2-4.2); Glucose 99 mg/dL (74-106); High Density Lipoprotein 46 mg/dL; PSA,Total - Annual Screen 0.68 ng/mL (0.00-4.00); Potassium 3.9 mmol/L (3.5-5.1); Protein, Total 7.6 g/dL (6.4-8.2); Sodium Level 142 mmol/L (136-145); Thyroid Stim Hormone (TSH) 0.84 uIU/mL (0.358-3.74); Triglycerides 148 mg/dL; Very Low Density Lipoprotein 30 mg/dL (5-40)
[2022-03-01 17:45] LABS: Absolute Lymphocyte Count 1.41 X10^3/uL (0.83-4.51); Absolute Neutrophil Count 3.6 X10^3/uL (2.0-7.7); Basophil# 0.03 X10^3/uL; Basophil% 0.5 % (0-1); Eosinophil# 0.12 X10^3/uL; Eosinophils% 2.1 % (0-5); Hematocrit 48.4 % (40-54); Lymphocyte # 1.41 X10^3/ul (0.83-4.51); Lymphocyte % 25.1 % (19-41); Mean Corp Hgb Conc 33.1 g/dL (32-36); Mean Corpuscular Hgb 30.5 pg (27.0-32.0); Mean Corpuscular Volume 92.2 fL (80-94); Mean Platelet Vol. 10.2 fl (6.2-12.0); Monocyte# 0.48 X10^3/uL; Monocyte% 8.5 % (0-10); NRBC Flagged by Analyzer 0 % (0-5); Neutrophil # 3.57 X10^3/uL (2.7-7.7); Neutrophil % 63.6 % (47-70); Platelet Count 258 K/mm3 (150-450); RBC Distribution Width CV 13.1 % (11.6-14.6); RBC Distribution Width SD 44.3 fl (35.1-43.9); Red Blood Count 5.25 M/mm3 (4.6-6.2); White Blood Count 5.6 K/mm3 (4.4-11.0)
[2022-03-01 18:33] LABS: Erythrocyte Sedimentation Rate < 1 mm/hr (0-20)
[2022-03-04 16:08] LABS: Endomysial Antibody IgA Negative (Negative)
[2022-03-04 19:08] LABS: Deamidated Gliadin IgA 5 units (0-19); Deamidated Gliadin IgG 2 units (0-19); Immunoglobulin A 80 mg/dL (90-386); t-Transglutaminase IgA <2 U/mL (0-3)
[2022-03-07 00:06] LABS: Beef <0.10 kU/L (Class 0); Corn <0.10 kU/L (Class 0); Egg, Whole <0.10 kU/L (Class 0); Milk (Cow) <0.10 kU/L (Class 0); Peanut <0.10 kU/L (Class 0); Pork <0.10 kU/L (Class 0); Soybean <0.10 kU/L (Class 0); Wheat <0.10 kU/L (Class 0)
[2022-03-07 16:30] LABS: Chocolate <0.10 kU/L (Class 0)
== END | disposition home or self-care (01) ==
LOC: MTLAB 11:30
PROVIDERS: PCP Family Medicine; Referring Provider Family Medicine; Visit Provider Family Medicine
DX: R10.9 Unspecified abdominal pain (principal); K58.9 Irritable bowel syndrome, unspecified; E78.5 Hyperlipidemia, unspecified; Z12.5 Encounter for screening for malignant neoplasm of prostate
CPT/HCPCS: 36415; 74019; 80053; 80061; 82784; 83516; 84153; 84443; 85025; 85652; 86003; 86005; 86255; G0103

== ENCOUNTER → 2023-06-11 | Outpatient (CLI) | payer BC, SELFPAY ==
[2023-06-11 10:44] LABS: Hematocrit 42.9 % (40-54); Hemoglobin 14.5 g/dL (13.0-16.5); Mean Corp Hgb Conc 33.8 g/dL (32-36); Mean Corpuscular Hgb 30.4 pg (27.0-32.0); Mean Corpuscular Volume 89.9 fL (80-94); Mean Platelet Vol. 10.4 fl (6.2-12.0); Platelet Count 211 K/mm3 (150-450); RBC Distribution Width CV 13.2 % (11.6-14.6); RBC Distribution Width SD 42.8 fl (35.1-43.9); Red Blood Count 4.77 M/mm3 (4.6-6.2); White Blood Count 6.2 K/mm3 (4.4-11.0)
[2023-06-11 11:09] LABS: Anion Gap 3 (5-15); BUN 11 mg/dL (7-18); BUN/Creat Ratio 10.5 RATIO (10-20); Calcium,Total 8.9 mg/dL (8.5-10.1); Chloride 109 mmol/L (98-107); Cholesterol 235 mg/dL (200); Creatinine, Serum 1.05 mg/dL (0.70-1.30); EST Glomerular Filtration Rate 78 mL/min (>60); Est Glom Filt Rate - Afr Amer 95 mL/min (>60); Glucose 109 mg/dL (74-106); High Density Lipoprotein 42 mg/dL; PSA,Total- Diagnostic 0.74 ng/mL (0.0-4.0); Potassium 4.1 mmol/L (3.5-5.1); Sodium Level 141 mmol/L (136-145); Triglycerides 262 mg/dL; Very Low Density Lipoprotein 52 mg/dL (5-40)
== END | disposition home or self-care (01) ==
LOC: MFPLAB 08:28
PROVIDERS: PCP Family Medicine; Visit Provider Family Medicine
DX: K58.1 Irritable bowel syndrome with constipation (principal); Z13.220 Encounter for screening for lipoid disorders; Z13.1 Encounter for screening for diabetes mellitus; Z12.5 Encounter for screening for malignant neoplasm of prostate
CPT/HCPCS: 36415; 80048; 80061; 84153; 85027